=== PATIENT | male | born 1970 | race Caucasian/White ===

== ENCOUNTER 2018-08-29 16:08 | Inpatient (IN) | payer OTHER ==
[2018-08-29] MEDS ORDERED: Dexamethasone IV* 10 MG in NS 0.9% 50 ML* 50 ML IVPB ONE (16:19)
[2018-08-29] MEDS ORDERED: Albuterol/Ipratropium NEB.SOL* Albuterol 2.5 MG/Ipratropium 0.5 MG 3 ML INH ONE ×3 (16:20→17:47)
[2018-08-29] MEDS ORDERED: ED Azithromycn 500 mg/250 ml 500 MG/250 ML PREMIX.SET IVPB ONE (16:20)
[2018-08-29] MEDS ORDERED: Magnesium Sulfate IV* 0.5 GM/ML 2 ML VIAL (1 GM) IVPB ONE (16:20)
[2018-08-29] MEDS ORDERED: Dexamethasone IV* 4 MG/ML 5 ML VIAL (20 MG) ONE (16:25)
--- NOTE | 2018-08-29 16:26 | ED ---
Shortness of Breath - HPI Summary HPI Summary: A 48 y/o male brought in by [facility] ambulance presents to [facility] with a chief complaint of SOB a few hours BEER COOLER. EMS found the patient at home with an O2 Sat of 88 on 2L O2. The patient was given a nebulizer en route, he was not given steroids. He rates his pain as a 0/10 in severity. He denies a Hx of CHF. Vital signs while in room HR: 100bpm, O2 Sat:93 - History of Current Complaint Chief Complaint: EDShortnessOfBreath Hx Obtained From: Patient, EMS Onset/Duration: Sudden Onset, Lasting Hours, Still Present Timing: Constant Current Severity: Mild Dyspnea At: Rest Aggrevating Factors: Nothing Alleviating Factors: Nothing Associated Signs & Symptoms: Negative - fever - Allergy/Home Medications Allergies/Adverse Reactions: Allergies Allergy/AdvReac Type Severity Reaction Status Date / Time prochlorperazine Allergy Muscle Ache Verified 08/29/18 16:19 [From Compazine] Home Medications: Home Medications NK [No Home Medications Reported] 08/29/18 [History Confirmed 08/29/18] PMH/Surg Hx/FS Hx/Imm Hx Endocrine/Hematology History: Denies: Hx Diabetes Cardiovascular History: Denies: Hx Hypertension Sensory History: Denies: Hx Deafness - Surgical History Surgery Procedure, Year, and Place: none reported Infectious Disease History: No Infectious Disease History: Denies: Traveled Outside the [place] in Last 30 Days - Family History Known Family History: Negative: Hypertension, Diabetes - Social History Lives: With Family Alcohol Use: Rare Hx Tobacco Use: Yes Smoking Status (MU): Light Every Day Tobacco Smoker Review of Systems Negative: Fever Positive: Shortness Of Breath All Other Systems Reviewed And Are Negative: Yes Physical Exam - Summary Physical Exam Summary: GENERAL: Patient is a well-developed and nourished M who is lying comfortable in the stretcher. Patient is not in any acute respiratory distress. HEAD AND FACE: Normocephalic EYES: PERRLA, EOMI x 2. EARS: Hearing grossly intact. MOUTH: Oropharynx within normal limits. NECK: Supple, trachea is midline, no adenopathy, no JVD, no carotid bruit. CHEST: Symmetric, no tenderness at palpation LUNGS: Diffuse wheezing and rhonchi throughout CVS: Regular rate and rhythm, S1 and S2 present, no murmurs or gallops appreciated. ABDOMEN: Soft, non-tender. Bowel sounds are normal. No abdominal abnormal pulsations. EXTREMITIES: Full ROM in all major joints, no edema, no cyanosis or clubbing. NEURO: Alert and oriented x 3. No acute neurological deficits. Speech is normal and follows commands. SKIN: Dry and warm Triage Information Reviewed: Yes Vital Signs On Initial Exam: Initial Vitals Temp Pulse Resp BP Pulse Ox 99.1 F 103 30 157/81 94 08/29/18 16:16 08/29/18 16:16 08/29/18 16:16 08/29/18 16:16 08/29/18 16:16 Vital Signs Reviewed: Yes Diagnostics - Vital Signs Vital Signs Temp Pulse Resp BP Pulse Ox 08/29/18 16:16 99.1 F 103 30 157/81 94 - Laboratory Result Diagrams: 08/30/18 04:49 08/30/18 04:49 Lab Statement: Any lab studies that have been ordered have been reviewed, and results considered in the medical decision making process. - Radiology CXR Radiology Interpretation Completed By: Radiologist Summary of Radiographic Findings: No radiographic evidence for acute cardiopulmonary abnormality on this. portable chest x-ray. ED physician has reviewed this imaging report. - EKG 16:37 Cardiac Rate: Tachycardia - 103 bpm EKG Rhythm: Sinus Tachycardia Summary of EKG Findings: Sinus tachycardia at 103 bpm with [address] and ST elevation. Course/Dx - Course Course Of Treatment: A 48 y/o male brought in by [facility] ambulance presents to [facility] with a chief complaint of SOB a few hours BEER COOLER. The physical exam showed Diffuse wheezing and rhonchi throughout At 16:37 EKG shows sinus tachycardia at [address] bpm with [address]OS and ST elevation. In the ED course the patient was given Duoneb INH and Tylenol PO. CXR impression: No radiographic evidence for acute cardiopulmonary abnormality on this. portable chest x-ray. Bloodwork and chemistries obtained. The patient tested negative for influenza A and influenza B. Case discussed with hospitalist, Dr. Wick. I discussed results with patient. The patient agrees with this plan - Diagnoses Provider Diagnoses: COPD exacerbation - Physician Notifications Discussed Care of Patient With: David Wick Time Discussed With Above Provider: 18:14 Instructed by Provider To: Admit As Inpatient - Critical Care Time Critical Care Time: 30-74 min Discharge - Sign-Out/Discharge Documenting (check all that apply): Patient Departure - admit Patient Received Moderate/Deep Sedation with Procedure: No - Discharge Plan Condition: Fair Disposition: ADMITTED TO [facility] - Billing Disposition and Condition Condition: FAIR Disposition: Admitted to [facility] - Attestation Statements Document Initiated by Indira: Yes Documenting Scribe: Kaleb Lisa Provider For Whom Indira is Documenting (Include Credential): Leana Ulrich MD Scribe Attestation: IKaleb, scribed for Leana Ulrich MD on 08/30/18 at 0736. Scribe Documentation Reviewed: Yes Provider Attestation: The documentation as recorded by the Kaleb harman accurately reflects the service I personally performed and the decisions made by me, Cece Ulrich MD Status of Scribe Document: Viewed
[2018-08-29] MEDS ORDERED: Magnesium Sulfate 2 GM IV (Premix) IVPB ONE (17:00)
[2018-08-29 17:49] LABS: ABS Basophils 0 10^3/ul (0-0.2); ABS Eosinophils 0 10^3/ul (0-0.6); ABS Lymphocytes 0.7 10^3/ul (1.0-4.8); ABS Monocytes 0.6 10^3/ul (0-0.8); ABS Neutrophils 8.5 10^3/ul (1.5-7.7); ABS Nucleated RBC 0 10^3/ul; Eosinophil % 0 %; Hematocrit 43 % (36-46); Hemoglobin 13.3 g/dL (14.0-18.0); Lymphocyte % 7.4 %; Mean Corpuscular HGB Conc 31 g/dL (31-36); Mean Corpuscular Hemoglobin 28 pg (27-31); Mean Corpuscular Volume 88 fL (80-94); Mean Platelet Volume 8.1 fL (7.4-10.4); Nucleated Red Blood Cells % 0.1; Platelet Count 164 10^3/uL (150-450); Red Blood Count 4.84 10^6 /uL (4.18-5.48); Red Cell Distribution Width 17 % (10.5-15); White Blood Count 9.8 10^3/uL (3.5-10.8)
[2018-08-29 17:57] LABS: Activated Partial Thrombo Time 30.4 seconds (26.0-36.3)
[2018-08-29] MEDS ORDERED: Acetaminophen TAB* 325 MG ONE (18:00)
[2018-08-29] MEDS ORDERED: Acetaminophen TAB* 325 MG PO ONE (18:02)
[2018-08-29 18:08] LABS: Albumin 4.4 g/dL (3.2-5.2); Albumin/Globulin Ratio 1.2 (1-3); BUN/Creatinine Ratio 22.9 (8-20); Calcium 9.1 mg/dL (8.6-10.3); EGFR African American 119.2 (>60); EGFR Non-African American 98.5 (>60); Globulin 3.6 g/dL (2-4); Magnesium 2.5 mg/dL (1.9-2.7); Potassium 4.5 mmol/L (3.5-5.0); Total Bilirubin 0.3 mg/dL (0.2-1.0)
[2018-08-29 18:10] LABS: Troponin I 0.01 ng/mL (<0.04)
[2018-08-29] MEDS ORDERED: Senna TAB PO PRN (18:43)
[2018-08-29] MEDS ORDERED: Docusate CAP* 100 MG PO PRN (18:43)
[2018-08-29] MEDS ORDERED: Ondansetron INJ* 2 MG/ML VIAL IV PRN (18:43)
[2018-08-29] MEDS ORDERED: cefTRIAXone(*) 1 GM ADVAN/BAG ONE (18:58)
[2018-08-29] MEDS ORDERED: Enoxaparin(*) 40 MG/0.4 ML SYR ONE (18:58)
[2018-08-29] MEDS ORDERED: Enoxaparin(*) 40 MG/0.4 ML SYR SUBCUT SCH (19:00)
[2018-08-29] MEDS ORDERED: cefTRIAXone(*) 1 GM in NS 0.9% 50 ML* 50 ML IVPB SCH (19:00)
[2018-08-29] MEDS: Nicotine PATCH 21 MG/24 HR* PATCH TRANSDERM SCH (19:07)
[2018-08-29 19:10] LABS: Influenza A Molecular NEGATIVE (Negative); Influenza B Molecular NEGATIVE (Negative)
[2018-08-29] MEDS: Albuterol/Ipratropium NEB.SOL* Albuterol 2.5 MG/Ipratropium 0.5 MG 3 ML INH PRN (19:48)
--- NOTE | 2018-08-29 20:45 | HP ---
CC: Dr. Blake [place] * ADMISSION HISTORY AND PHYSICAL: DATE OF ADMISSION: 08/29/18 PRIMARY CARE PROVIDER: Dr. Blake in [place]. HEALTHCARE PROXY: His girlfriend, Klarissa, and his friend at bedside. CODE STATUS: Full. SOURCE OF INFORMATION: History obtained from interview with the patient, his girlfriend Klarissa, and his friend at bedside. RELIABILITY: Fair. CHIEF COMPLAINT: Shortness of breath. HISTORY OF PRESENT ILLNESS: This is a 48-year-old man with no known past medical history, except for recently diagnosed COPD approximately 1 month prior , was using 2 L of oxygen p.r.n. at home, had noticed a progressive worsening of shortness of breath over the last month with new-onset cough over the last 1- 1/2 weeks. He noticed he had been having more difficulty walking up the approximate 12 steps to his home, sometimes associated with chest pain and lightheadedness and certainly shortness of breath. Yesterday, he felt worse. He stayed home from work and ultimately was brought to the [place] [facility], where a chest x-ray was reportedly negative, received nebulizers; oxygen; magnesium and discharged with a prescription for steroids. Today, he had a fever of 102, felt weak. His girl-friend returned home, found him a little confused and more short of breath, and so brought him to the emergency room before he had taken any steroids at home. Of note, his girlfriend was sick with a flu 3 weeks prior. He was reportedly negative for the flu yesterday at [place] [facility]. He denies any headache, myalgias, or GI symptoms. He returned to the [place] [facility] today, where he was found to be in the "low 80s on nasal cannula" and transferred to [facility] via EMS. On presentation to the emergency room, he was 94% on 4 L mask, tachypneic to 30, placed on BiPAP , given steroid nebulizers with some improvement. Hospitalist was consulted for admission. PAST MEDICAL HISTORY: Includes recent diagnosis of COPD, on 3 L of home oxygen since yesterday's ER visit. No other medications for COPD. MEDICATIONS: None, except for [id number]-bjhbuqh Motrin and Tylenol. ALLERGIES: To Compazine, causes tight muscles. FAMILY HISTORY: Unknown. SOCIAL HISTORY: Smokes 1 pack per day since age 15, approximately 33 years. Occasional alcohol. 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 No illicits. REVIEW OF SYSTEMS: As per HPI including fever at home, confusion, dyspnea, chest pain with ambulation up stairs, and lightheadedness. PHYSICAL EXAMINATION GENERAL: Sitting 45 degrees in bed, sleepy, but wakes easily to name. VITAL SIGNS: Vitals when seen by this author are 129/81, heart rate 102, respiratory rate 22, 96% on 20/10, FiO2 40, T-max is 99.1. HEENT: Oropharynx is dry, but clear. Extraocular muscles are intact. Pupils are approximately 2 mm, round and reactive. NECK: No cervical or supraclavicular lymphadenopathy. LUNGS: His lungs are diffusely diminished with diffuse crackles and end- expiratory wheeze. HEART: Tachycardic heart rate, difficult to auscultate murmurs over mechanical sounds. ABDOMEN: Soft, nontender, nondistended. EXTREMITIES: Warm and well perfused. He has approximately 2-second capillary refill, although slightly sluggish. NEURO: He is alert and oriented x3. Difficult to communicate with BiPAP. DIAGNOSTIC STUDIES/LAB DATA: Labs reviewed, notable for white blood cell count of 9.8, hemoglobin 13.3, platelets 164. His ABG was notable for a pH of 2.73, bicarb of 84, pO2 of 101 on presentation 4 L. Approximately an hour later , slight improvement in pCO2 to 79 on BiPAP. BUN 19, creatinine 0.83, presenting glucose 124, lactic acid 0.9. Troponin I 0.01. BNP is 27. Data reviewed: Chest x-ray, no active cardiopulmonary disease noted. EKG. Sinus tachycardia, ventricular rate of 130, normal axis. No ST- or T- wave changes. No Qs. ASSESSMENT AND PLAN: This 48-year-old man, active tobacco use, suspected history of chronic obstructive pulmonary disease, 1-month history of worsening difficulty breathing, punctuated by worsening over the last 1-1/2 weeks and then today and then worse yesterday evening, presenting to [place] ED and then worse today with respiratory failure requiring BiPAP. 1. Kyoli-gq-facnzpl respiratory failure. Suspect chronic obstructive pulmonary disease exacerbation, most likely viral in etiology; however, did note fever at home to 102. Received azithromycin in the emergency room. We will add on ceftriaxone. Received Decadron in the emergency room. We will continue methylprednisolone 40 mg every 8 hours. I do not identify a sepsis at this point. No source of infection. No fevers here and no elevated white blood cell count. We will not bolus the patient. Maintain BiPAP. Repeat ABG in 2 hours from now. DuoNebs and start Dulera, which I cautioned he will have to leave with. He did have close contact with girlfriend with influenza. Repeat influenza now even though reportedly negative at [place]. Admit to the ICU for close observation. 2. Chest pain at home, sounds like stable angina walking up stairs, although may have been associated with hypoxia in the setting of chronic respiratory failure not yet on oxygen. Ordered transthoracic echocardiogram. Check aspirin. Currently, chest pain free and was not a symptom of his presenting symptoms. Check lipids in the morning, add on hemoglobin A1c. Monitor on telemetry. 3. Active tobacco use, add high-dose nicotine patch. 4. DVT prophylaxis, enoxaparin. TIME SPENT: Greater than 45 minutes was spent in the admission of this patient , approximately 60 minutes of critical care time devoted to his admission, with greater than half was spent [id number]-[id number] with the patient and his family. [id number]/[facility] #: [id number] OTTO
--- NOTE | 2018-08-29 21:49 | PN ---
Progress Note - Progress Note Date of Service: 08/29/18 Note: F/U ABG - remains respiratory acidosis. Slight improvement in pH. On exam: awakes easily to voice. States his breathing is better. Is awake and alert. On max BiPAP settings. Notice a leak in mask. Readjusted. Will repeat ABG in a few hours. Appears clinically improving.
[2018-08-29] MEDS: Mometasone/Formoter 200/5 MDI INH SCH (23:03)
[2018-08-29] MEDS: methylPREDNISolone SOD 40 MG* 1 ML VIAL IV SCH (23:50)
[2018-08-30] MEDS: NS 0.9% 1000 ML** 1,000 ML IV SCH ×2 (04:50→15:51)
[2018-08-30 05:00] LABS: ABS Basophils 0 10^3/ul (0-0.2); ABS Eosinophils 0 10^3/ul (0-0.6); ABS Lymphocytes 0.5 10^3/ul (1.0-4.8); ABS Monocytes 0.2 10^3/ul (0-0.8); ABS Neutrophils 8.6 10^3/ul (1.5-7.7); ABS Nucleated RBC 0 10^3/ul; Eosinophil % 0 %; Hematocrit 37 % (36-46); Hemoglobin 11.8 g/dL (14.0-18.0); Mean Corpuscular HGB Conc 32 g/dL (31-36); Mean Corpuscular Hemoglobin 28 pg (27-31); Mean Corpuscular Volume 86 fL (80-94); Mean Platelet Volume 7.9 fL (7.4-10.4); Nucleated Red Blood Cells % 0.1; Platelet Count 148 10^3/uL (150-450); Red Blood Count 4.31 10^6 /uL (4.18-5.48); Red Cell Distribution Width 17 % (10.5-15); White Blood Count 9.3 10^3/uL (3.5-10.8)
[2018-08-30 05:15] LABS: BUN/Creatinine Ratio 27.9 (8-20); Calcium 8.4 mg/dL (8.6-10.3); EGFR Non-African American 123.9 (>60); HDL Cholesterol 48.2 mg/dL; Magnesium 2.2 mg/dL (1.9-2.7); Potassium 4.9 mmol/L (3.5-5.0)
[2018-08-30] MEDS: Mometasone/Formoter 200/5 MDI INH SCH ×2 (07:51→19:14)
[2018-08-30] MEDS: Albuterol/Ipratropium NEB.SOL* Albuterol 2.5 MG/Ipratropium 0.5 MG 3 ML INH PRN (07:52)
[2018-08-30] MEDS: methylPREDNISolone SOD 40 MG* 1 ML VIAL IV SCH ×2 (08:09→16:18)
[2018-08-30] MEDS: Nicotine PATCH 21 MG/24 HR* PATCH TRANSDERM SCH (08:10)
[2018-08-30] MEDS: Aspirin 81 mg CHEW TAB* 81 MG TAB.CHEW PO SCH (08:10)
[2018-08-30] MEDS: Acetaminophen TAB* 325 MG PO PRN (08:10)
[2018-08-30] MEDS ORDERED: Morphine 4 MG/ML VIAL (1 ml) 4 MG/ML VIAL IV ONE (08:45)
[2018-08-30] MEDS: Albuterol/Ipratropium NEB.SOL* Albuterol 2.5 MG/Ipratropium 0.5 MG 3 ML INH SCH ×4 (10:05→23:04)
[2018-08-30] MEDS: Azithromycin IV(*) 250 MG in NS 0.9% 250 ML* 250 ML IVPB SCH (12:54)
--- NOTE | 2018-08-30 13:05 | CONS ---
PULMONARY CONSULTATION REPORT: DATE OF CONSULT: 08/30/18 CONSULTATION REQUESTED BY: Dr. David Wick. REASON FOR CONSULTATION: Evaluation of COPD exacerbation. HISTORY OF PRESENT ILLNESS: The patient is a 48-year-old obese male; smoker with significant smoking history; history of COPD, on 3 L home O2, recently started for hypoxemia during ER visit. The patient has not been following with primary care provider or has not seen a sales and service agent in the past. The patient presents for evaluation of worsening shortness of breath, gradually worsening over the past 1 month. He has been using O2 at home with no significant improvement in his symptoms. He has been in the ER a few times at [place]. Comes in for significant shortness of breath and productive cough. Also having significant chest pain and tightness with minimal exertion. He was seen in the [place] [facility] and was transferred to [facility] for further management. The patient on arrival was febrile, fever of 102. He was also found to be little confused at home by his girlfriend. The patient was given steroids, nebulizers, and was placed on BiPAP and admitted to ICU for close monitoring of acute COPD exacerbation. The patient with hypercapnic respiratory failure with slight improvement on BiPAP. The patient reported more anxiety and shortness of breath this morning. He was given morphine with symptomatic benefit. He has not been coughing much since he has been here. Work of breathing improved after BiPAP towards midday today. He has had very low-grade fevers. No significant issues otherwise. His blood pressure has been normal and he has otherwise been hemodynamically stable. PAST MEDICAL HISTORY: COPD, on home O2. MEDICATIONS: Vkto-aqc-efizzli Motrin and Tylenol for pain. ALLERGIES: COMPAZINE, which causes chest tightness. FAMILY HISTORY: Noncontributory. SOCIAL HISTORY: Smokes 1 pack per day since age 15. Occasional alcohol intake. 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 No illicit drug abuse. REVIEW OF SYSTEMS: All 14 systems reviewed and as per HPI. Denies recent travel or known sick contacts. Denies headaches. Reports anxiety. Denies chest pain or tightness at this time. Has been having fevers. Denies rash, urinary complaints or abdominal issues. PHYSICAL EXAM: The patient is slightly tachypneic, using accessory muscles of respiration, able to talk full sentence even on BiPAP. Vital Signs: Temperature 97.9, pulse 88 beats per minute, respiratory rate 23 per minute, O2 sat 97% on 40% FiO2 on BiPAP, and blood pressure 137/85. HEENT: Pupils equal and reactive to light. Mucous membranes are moist. Lungs: Diminished air entry bilaterally. Significant wheeze on auscultation. Cardiovascular: S1, S2 present, regular. Abdomen: Soft, nontender, and nondistended. Bowel sounds present. Extremities: Normal range of motion. Skin: No rash or bruise. Neuro : Alert, awake, oriented x3. No focal deficits. DIAGNOSTIC STUDIES/LAB DATA: WBC count 9.3, hemoglobin 11.8, hematocrit 37, platelet count of 148. Blood gas on arrival showed significant respiratory acidosis with pCO2 of 84. Blood gas from this morning showed improvement with pH of 7.31, pCO2 of 69, pO2 of 102 while on 40% FiO2 with bicarb of 29. Sodium 135, potassium 4.9, chloride 99, bicarb 35, BUN 19, and creatinine 0.68. Influenza A and B negative. Chest x-ray on admission was personally reviewed by me - evidence of hyperinflation with no suggestion of airspace opacities. IMPRESSION AND RECOMMENDATIONS: 48-year-old male with significant smoking history with ongoing shortness of breath issues in the past month, also with fevers and confusion prior to admission. 1. Acute on chronic obstructive pulmonary disease exacerbation. 2. Hypoxemic and hypercapnic respiratory failure. 3. Anxiety. 4. Anemia. The patient requiring BiPAP since admission. He is slowly improving. At this time, will continue with BiPAP as tolerated. The patient's respiratory acidosis is slowly improving. He is still significantly tachypneic on auscultation. He is getting nebs q.4 hours standing doses. He is also started on Rocephin and Zithromax for possible bronchitis. He is on Solu-Medrol 40 q.8 hours. Will continue that until we see clinical improvement. He was also started on long- acting bronchodilators. He was started on nicotine patch. Smoking cessation education and counseling was performed at bedside. He has tenuous respiratory status. If he appears to be not improving or patient appears to be tired out, will then consider intubation. This was discussed in detail with the patient and he is agreeable to intubation if needed. Thank you for allowing me to participate in the care of your patient. Will follow up with you. Discussed with Dr. David Wick. [id number]/[facility] #: [id number] OTTO
--- NOTE | 2018-08-30 14:51 | PN ---
Subjective Date of Service: 08/30/18 Interval History: Awake, feels breathing is improved but did not tolerate coming off of bipap ABG minimally improved since last Objective Active Medications: Acetaminophen (Tylenol Tab*) 650 mg PO Q4H PRN PRN Reason: FEVER/PAIN Last Admin: 08/30/18 08:10 Dose: 650 mg Albuterol/Ipratropium (Duoneb (Albuterol 2.5 Mg/Ipratropium 0.5 Mg)) 1 neb INH [id number] AWAKE [facility] Last Admin: 08/30/18 10:05 Dose: 1 neb Aspirin (Aspirin 81 Mg Chew Tab*) 81 mg PO DAILY [facility] Last Admin: 08/30/18 08:10 Dose: 81 mg Docusate Sodium (Colace Cap*) 100 mg PO BID PRN PRN Reason: CONSTIPATION Enoxaparin Sodium (Lovenox(*)) 40 mg SUBCUT Q24HR@1830 [facility] Azithromycin 250 mg/ Sodium (Chloride) 250 mls @ 250 mls/hr IVPB Q24H [facility] Stop: 09/02/18 12:59 Last Admin: 08/30/18 12:54 Dose: 250 mls/hr Ceftriaxone Sodium 1 gm/ (Sodium Chloride) 50 mls @ 200 mls/hr IVPB Q24HR@1830 [facility] Sodium Chloride (Ns 0.9% 1000 Ml) 1,000 mls @ 100 mls/hr IV PER RATE [facility] Stop: 09/01/18 13:59 Last Admin: 08/30/18 04:50 Dose: 100 mls/hr Influenza Virus Vaccine (Fluarix *Quad* *) 0.5 ml IM .ONCE ONE Stop: 09/01/18 09:01 Methylprednisolone Sodium Succinate (Solu-Medrol 40 Mg) 40 mg IV Q8H [facility] Last Admin: 08/30/18 08:09 Dose: 40 mg Mometasone Furoate/Formoterol Fumar (Dulera 200/5 Mdi*) 2 puff INH BID [facility] Last Admin: 08/30/18 07:51 Dose: 2 puff Nicotine (Nicotine Patch 21 Mg/24 Hr*) 1 patch TRANSDERM DAILY [facility] Last Admin: 08/30/18 08:10 Dose: 1 patch Ondansetron HCl (Zofran Inj*) 4 mg IV Q4H PRN PRN Reason: NAUSEA/VOMITING Pharmacy Profile Note (Nicotine Patch Removal Note*) 1 note FOLLOW UP 2100 ZAIDA Pneumococcal Polyvalent Vaccine (Pneumococcal Vac 23-Polyvalent*) 0.5 ml IM .ONCE ONE Stop: 09/01/18 09:01 Senna (Senokot Tab*) 1 tab PO BID PRN PRN Reason: CONSTIPATION Vital Signs - 8 hr 08/30/18 08/30/18 08/30/18 07:00 07:52 08:00 Temperature Pulse Rate 92 88 87 Respiratory 20 29 23 Rate Blood Pressure 133/79 (mmHg) O2 Sat by Pulse 96 95 99 Oximetry 08/30/18 08/30/18 08/30/18 08:01 08:28 09:00 Temperature 97.9 F Pulse Rate 92 88 Respiratory 24 3 Rate Blood Pressure 140/84 137/82 (mmHg) O2 Sat by Pulse 98 94 Oximetry 08/30/18 08/30/18 08/30/18 09:11 10:00 10:01 Temperature Pulse Rate 89 88 Respiratory 30 23 23 Rate Blood Pressure 137/85 (mmHg) O2 Sat by Pulse 97 97 Oximetry 08/30/18 08/30/18 08/30/18 11:00 12:00 13:00 Temperature 98.7 F Pulse Rate 83 87 110 Respiratory 26 24 25 Rate Blood Pressure 137/85 129/81 154/80 (mmHg) O2 Sat by Pulse 98 98 95 Oximetry 08/30/18 14:00 Temperature Pulse Rate 115 Respiratory 30 Rate Blood Pressure 160/93 (mmHg) O2 Sat by Pulse 96 Oximetry Oxygen Devices in Use Now: BiPAP - 20/10 [id number] Appearance: sitting up ,NAD Eyes: No Scleral Icterus, PERRLA Ears/Nose/Mouth/Throat: NL Teeth, Lips, Gums, Clear Oropharnyx Neck: NL Appearance and Movements; NL JVP, Trachea Midline Respiratory: Symmetrical Chest Expansion and Respiratory Effort, - - decreased air entry throughout, expiratory wheezes and rhonchi Cardiovascular: RRR Abdominal: NL Sounds; No Tenderness; No Distention, No Hepatosplenomegaly Lymphatic: No Cervical Adenopathy Extremities: No Edema Skin: No Rash or Ulcers Neurological: Alert and Oriented x 3 Result Diagrams: 08/30/18 04:49 08/30/18 04:49 Microbiology and Other Data: Microbiology 08/29/18 17:41 Aerobic Blood Culture - Final Blood Venous Bacillus Sp (Non-Anthracis) 08/29/18 19:51 Nasal Screen MRSA (PCR) - Final Nasal Mrsa Not Detected 08/29/18 18:43 Influenza Types A,B Antigen - Final Nasal Specimen received for Influenza A/B Molecular testing Assess/Plan/Problems-Billing Assessment: 48 yo M no known Pmhx except recently diagnosed COPD at [facility] pw respiratory failure - Patient Problems (1) Acute respiratory failure with hypoxia Comment: Acute on chronic - pt was on 3L home O2 for the month prior to presentation c/w IV steroids, dulera, duonebs standing BiPAP with breaks if tolerated Repeat ABG 1700 Appreciate pulm consult Had fever at home - c/w CTX and azithromycin although CXR without compelling PNA (2) Tobacco abuse Comment: nicotine patch (3) DVT prophylaxis Comment: lovenox
[2018-08-30] MEDS: cefTRIAXone(*) 1 GM in NS 0.9% 50 ML* 50 ML IVPB SCH (18:40)
[2018-08-30] MEDS: Enoxaparin(*) 40 MG/0.4 ML SYR SUBCUT SCH (18:46)
[2018-08-30] MEDS: Nicotine Patch Removal NOTE FOLLOW UP SCH (21:34)
[2018-08-31] MEDS: methylPREDNISolone SOD 40 MG* 1 ML VIAL IV SCH ×3 (00:06→18:09)
[2018-08-31] MEDS: NS 0.9% 1000 ML** 1,000 ML IV SCH (02:12)
[2018-08-31] MEDS: Albuterol/Ipratropium NEB.SOL* Albuterol 2.5 MG/Ipratropium 0.5 MG 3 ML INH SCH ×7 (03:10→23:55)
[2018-08-31] MEDS: Acetaminophen TAB* 325 MG PO PRN ×2 (04:14→12:26)
[2018-08-31] MEDS: Melatonin 3 MG TAB PO SCH ×2 (04:42→20:51)
[2018-08-31] MEDS: Mometasone/Formoter 200/5 MDI INH SCH ×3 (07:41→20:20)
[2018-08-31] MEDS: Aspirin 81 mg CHEW TAB* 81 MG TAB.CHEW PO SCH (09:11)
[2018-08-31] MEDS: Nicotine PATCH 21 MG/24 HR* PATCH TRANSDERM SCH (09:12)
--- NOTE | 2018-08-31 09:54 | PN ---
Progress Note - Progress Note Date of Service: 08/31/18 - Pulm f/u note Note: Pt seen and examined at bedside. Pt reports feeling better. Tolerated BiPAP for few hours and was transitioned to high flow. Having cough with thick secretions , able to expectorate. Active Medications Generic Name Dose Route Start Last Admin Trade Name Freq PRN Reason Stop Dose Admin Acetaminophen 650 mg 08/29/18 18:43 08/31/18 04:14 Tylenol Tab* PO 650 mg Q4H PRN Administration FEVER/PAIN Albuterol/Ipratropium 1 neb 08/30/18 11:00 08/31/18 07:41 Duoneb (Albuterol 2.5 Mg/Ipratropium 0.5 Mg) INH Not Given [id number] AWAKE ZAIDA Aspirin 81 mg 08/30/18 09:00 08/31/18 09:11 Aspirin 81 Mg Chew Tab* PO 81 mg DAILY ZAIDA Administration Docusate Sodium 100 mg 08/29/18 18:43 Colace Cap* PO BID PRN CONSTIPATION Enoxaparin Sodium 40 mg 08/30/18 18:30 08/30/18 18:46 Lovenox(*) SUBCUT 40 mg Q24HR@1830 ZAIDA Administration Guaifenesin 600 mg 08/31/18 10:00 Mucinex* PO BID ZAIDA Azithromycin 250 mg/ Sodium 250 mls @ 250 mls/hr 08/30/18 12:00 08/30/18 12: 54 Chloride IVPB 09/02/18 12:59 250 mls/hr Q24H ZAIDA Administration Ceftriaxone Sodium 1 gm/ 50 mls @ 200 mls/hr 08/30/18 18:30 08/30/18 18:40 Sodium Chloride IVPB 200 mls/hr Q24HR@1830 [facility]AIDA Administration Sodium Chloride 1,000 mls @ 100 mls/hr 08/30/18 04:00 08/31/18 02:12 Ns 0.9% 1000 Ml IV 09/01/18 13:59 100 mls/hr PER RATE ZAIDA Administration Influenza Virus Vaccine 0.5 ml 09/01/18 09:00 Fluarix *Quad* 2017-* IM 09/01/18 09:01 .ONCE ONE Melatonin 3 mg 08/31/18 05:00 08/31/18 04:42 Melatonin PO 3 mg QPM ZAIDA Administration Methylprednisolone Sodium Succinate 40 mg 08/30/18 00:00 08/31/18 09:11 Solu-Medrol 40 Mg IV 40 mg Q8H ZAIDA Administration Mometasone Furoate/Formoterol Fumar 2 puff 08/29/18 21:00 08/31/18 07:41 Dulera 200/5 Mdi* INH Not Given BID ZAIDA Nicotine 1 patch 08/29/18 19:00 08/31/18 09:12 Nicotine Patch 21 Mg/24 Hr* TRANSDERM 1 patch DAILY [facility] Administration Ondansetron HCl 4 mg 08/29/18 18:43 Zofran Inj* IV Q4H PRN NAUSEA/VOMITING Pharmacy Profile Note 1 note 08/30/18 21:00 08/30/18 21:34 Nicotine Patch Removal Note* FOLLOW UP 1 note 2100 [facility] Administration Pneumococcal Polyvalent Vaccine 0.5 ml 09/01/18 09:00 Pneumococcal Vac 23-Polyvalent* IM 09/01/18 09:01 .ONCE ONE Senna 1 tab 08/29/18 18:43 Senokot Tab* PO BID PRN CONSTIPATION Vital Signs Temp Pulse Resp BP Pulse Ox 98.2 F 85 22 158/82 97 08/31/18 03:48 08/31/18 06:01 08/31/18 06:01 08/31/18 06:01 08/31/18 06:01 O/E: Pt in NAD HEENT: PERRLA, MP-4, no JVD, edentulous Lungs: Diminished air entry b/l, wheeze+ CVS: S1, S2+ Abd: Obese, BS+ Ext: Normal ROM Skin: No rash Neuro: No focal deficits Laboratory Results - last 24 hr 08/30/18 08/30/18 10:00 17:35 Patient Temperature Not Reportable Not Reportable ABG pH 7.31 L 7.36 ABG pH (Temp Correct) Not Reportable Not Reportable ABG pCO2 69 H 64 H ABG pCO2 (Temp Corrct Not Reportable Not Reportable ABG pO2 102 H 110 H ABG pO2 (Temp Correct Not Reportable Not Reportable ABG HCO3 29.6 31.5 H ABG O2 Saturation 98.7 H 100.0 H ABG Base Excess 6.0 H 8.4 H Respiration Rate 18 18 Ventilator Type Not Reportable Not Reportable Vent Mode Not Reportable Not Reportable FiO2 40 40 Inspiratory Time Not Reportable Not Reportable PEEP Not Reportable Not Reportable Pressure Support Not Reportable Not Reportable Pressure Control Not Reportable Not Reportable EPAP 10 Not Reportable IPAP 20 10 BiPAP Not Reportable 20 I/R: 48 y o obese m, smoker admitted with worsening SOB, found to be having acute COPD exacerbation sec to viral bronchitis Pt with acute on chronic hypercapnic and hypoxic resp failure, required BiPAP Pt improving clinically Will titrate FiO2 as tolerated Having copious secretions, will order flutter device, mucinex He is able to expectorate without any issues Septic w/u negative to date other than oral colonizers Will c/w solumedrol 40 q 8 hrs for now c/w bronchodilators Pt agreeable to quitting smoking. Nicotine patch helping On abx for bronchitis, no PNA on CXR Remains afebrile COPD education provided Would need to be d/amarjit on BiPAP Body habitus also concerning for sleep apnea Will need PFTs as out pt Will f/u in pulm clinic at [facility] D/w Dr Wick and bedside RN
--- NOTE | 2018-08-31 10:57 | ECHO ---
Patient: ANUP MUSTAFA [facility] Rec#: [id number] : 1970 Date: 08/31/2018 Age: 48y Height: 168 cm / 66.1 in Weight: 104 kg / 229.2 lbs Sex: M BSA: 2.12 Room#: [facility] Admit Date#: 08/29/2018 Type: Inpatient Referring: David Wick MD Reading: Erick Blake MD Train Attendant: Zina Mcgill RDCS CC: Maral Blake MD Transthoracic Echocardiogram Indication: Chest pain, dyspnea BP: 158/82 HR: 78 Rhythm: NSR with PVCs Findings History: COPD, smoker. Technical Comments: The study quality is fair. Completed at 0800. Left Ventricle: The left ventricular chamber size is normal. Mild concentric left ventricular hypertrophy is observed. Global left ventricular wall motion and contractility are within normal limits. There is normal left ventricular systolic function. The estimated ejection fraction is 55-60%. Normal left ventricular diastolic filling is observed. Left Atrium: The left atrium is mildly dilated. Right Ventricle: Moderator Band present. The right ventricle is mildly dilated. The right ventricle wall thickness is mildly increased. The right ventricular global systolic function is normal. Right Atrium: The right atrium is mildly dilated. Aortic Valve: The aortic valve structure is not well visualized. The aortic valve leaflets are mildly thickened. There is no evidence of aortic regurgitation. There is no evidence of aortic stenosis. Mitral Valve: The mitral valve leaflets are mildly thickened. There is a trace of mitral regurgitation. Tricuspid Valve: The tricuspid valve leaflets are normal. There is trace tricuspid regurgitation. Unable to estimate the right ventricular systolic pressure. Pulmonic Valve: The pulmonic valve structure is not well visualized. There is a trace pulmonic regurgitation. There is no pulmonic stenosis. Pericardium: There is no significant pericardial effusion. A pericardial fat pad is visualized. Aorta: There is mild dilatation of the ascending aorta. There is no dilatation of the aortic arch. There is mild dilatation of the aortic root. Pulmonary Artery: The main pulmonary artery is not well visualized. Venous: The inferior vena cava appears normal in size. There is a greater than 50% respiratory change in the inferior vena cava dimension. Conclusions There is normal left ventricular systolic function. The estimated ejection fraction is 55-60%. Global left ventricular wall motion and contractility are within normal limits. The left ventricular chamber size is normal. Mild concentric left ventricular hypertrophy is observed. The left atrium is mildly dilated. The right atrium is mildly dilated. The right ventricle is mildly dilated. The right ventricle wall thickness is mildly increased. The right ventricular global systolic function is normal. Functionally benign heart valves. There is mild dilatation of the ascending aorta. There is mild dilatation of the aortic root. There is no prior echocardiogram available to compare with at this time. Measurements Name Value Normal Range RVIDd (AP) 2D 3.5 cm (0.9 - 2.6) RVDdMajor (2D) 4.6 cm (2.2 - 4.4) RVAW (2D) 0.7 cm (0.2 - 0.5) RAd ISD 4CH 5.1 cm (3.4 - 4.9) RA (A4C)W 4.6 cm (2.9 - 4.6) IVSd (2D) 1.1 cm (0.6 - 1) LVPWd (2D) 1.1 cm (0.6 - 1) LVIDd (2D) 5.1 cm (3.6 - 5.4) LVIDs (2D) 3.3 cm - LV FS (2D) 35 % (25 - 45) Aortic Annulus 1.9 cm (1.4 - 2.6) Ao root diameter (2D) 3.6 cm (2.1 - 3.5) Ascending Ao 3.7 cm (2.1 - 3.4) Aortic arch 2 cm (1.8 - 3.4) LA dimension (AP) 2D 4.2 cm (2.3 - 3.8) LAd ISD 4CH 4.8 cm (2.9 - 5.3) LA ISD 4CH W 5.1 cm (2.5 - 4.5) Name Value Normal Range LA ESV BP (A/L) index 33 ml/m2 - Name Value Normal Range MV E-wave Vmax 1 m/sec - MV deceleration time 165 msec - MV A-wave Vmax 0.6 m/sec - MV E:A ratio 1.6 ratio - LV septal e' Vmax 0.11 m/sec - LV lateral e' Vmax 0.15 m/sec - LV E:e' septal ratio 9.1 ratio - LV E:e' lateral ratio 6.7 ratio - Name Value Normal Range AV Vmax 1.6 m/sec - AV VTI 30 cm - AV peak gradient 10 mmHg - AV mean gradient 5 mmHg - LVOT diameter 2 cm - LVOT Vmax 1 m/sec - LVOT VTI 21 cm - LVOT peak gradient 4 mmHg - LVOT mean gradient 2 mmHg - CARLINE Vmax 0.7 m/sec - Name Value Normal Range IVC diameter 2.1 cm - Name Value Normal Range PV Vmax 1.2 m/sec - PV peak gradient 6 mmHg -
[2018-08-31] MEDS: Azithromycin IV(*) 250 MG in NS 0.9% 250 ML* 250 ML IVPB SCH (12:26)
[2018-08-31] MEDS: guaiFENesin ER TAB 600 MG PO SCH ×2 (12:31→20:51)
--- NOTE | 2018-08-31 16:16 | PN ---
Subjective Date of Service: 08/31/18 Interval History: Tolerated vapotherm overnight but needed bipap rescue. Tolerated 5L NC today as well. Much improved. Producing large amounts of sputum. Adamant that he wants to quit smoking prior to me broaching topic Objective Active Medications: Acetaminophen (Tylenol Tab*) 650 mg PO Q4H PRN PRN Reason: FEVER/PAIN Last Admin: 08/31/18 12:26 Dose: 650 mg Albuterol/Ipratropium (Duoneb (Albuterol 2.5 Mg/Ipratropium 0.5 Mg)) 1 neb INH [id number] AWAKE [facility] Last Admin: 08/31/18 15:15 Dose: 1 neb Aspirin (Aspirin 81 Mg Chew Tab*) 81 mg PO DAILY [facility] Last Admin: 08/31/18 09:11 Dose: 81 mg Docusate Sodium (Colace Cap*) 100 mg PO BID PRN PRN Reason: CONSTIPATION Enoxaparin Sodium (Lovenox(*)) 40 mg SUBCUT Q24HR@1830 [facility] Last Admin: 08/30/18 18:46 Dose: 40 mg Guaifenesin (Mucinex*) 600 mg PO BID [facility] Last Admin: 08/31/18 12:31 Dose: 600 mg Azithromycin 250 mg/ Sodium (Chloride) 250 mls @ 250 mls/hr IVPB Q24H [facility] Stop: 09/02/18 12:59 Last Admin: 08/31/18 12:26 Dose: 250 mls/hr Ceftriaxone Sodium 1 gm/ (Sodium Chloride) 50 mls @ 200 mls/hr IVPB Q24HR@1830 [facility] Last Admin: 08/30/18 18:40 Dose: 200 mls/hr Sodium Chloride (Ns 0.9% 1000 Ml) 1,000 mls @ 100 mls/hr IV PER RATE [facility] Stop: 09/01/18 13:59 Last Admin: 08/31/18 02:12 Dose: 100 mls/hr Influenza Virus Vaccine (Fluarix *Quad* 2017-*) 0.5 ml IM .ONCE ONE Stop: 09/01/18 09:01 Melatonin (Melatonin) 3 mg PO QPM [facility] Last Admin: 08/31/18 04:42 Dose: 3 mg Methylprednisolone Sodium Succinate (Solu-Medrol 40 Mg) 40 mg IV Q8H [facility] Last Admin: 08/31/18 09:11 Dose: 40 mg Mometasone Furoate/Formoterol Fumar (Dulera 200/5 Mdi*) 2 puff INH BID [facility] Last Admin: 08/31/18 12:24 Dose: 2 puff Nicotine (Nicotine Patch 21 Mg/24 Hr*) 1 patch TRANSDERM DAILY [facility] Last Admin: 08/31/18 09:12 Dose: 1 patch Ondansetron HCl (Zofran Inj*) 4 mg IV Q4H PRN PRN Reason: NAUSEA/VOMITING Pharmacy Profile Note (Nicotine Patch Removal Note*) 1 note FOLLOW UP 2100 [facility] Last Admin: 08/30/18 21:34 Dose: 1 note Pneumococcal Polyvalent Vaccine (Pneumococcal Vac 23-Polyvalent*) 0.5 ml IM .ONCE ONE Stop: 09/01/18 09:01 Senna (Senokot Tab*) 1 tab PO BID PRN PRN Reason: CONSTIPATION Varenicline (Chantix (Nf)) 0.5 mg PO DAILY [facility]; Protocol Stop: 09/03/18 09:01 Vital Signs - 8 hr 08/31/18 08/31/18 15:16 15:23 Pulse Rate 98 100 Respiratory 24 95 Rate O2 Sat by Pulse 99 26 Oximetry Oxygen Devices in Use Now: Nasal Cannula Appearance: NAD Eyes: No Scleral Icterus, PERRLA Ears/Nose/Mouth/Throat: NL Teeth, Lips, Gums Neck: NL Appearance and Movements; NL JVP, Trachea Midline Respiratory: Symmetrical Chest Expansion and Respiratory Effort, - - poor air movement but much improved since admission, +wheeze Cardiovascular: RRR Abdominal: NL Sounds; No Tenderness; No Distention, No Hepatosplenomegaly Lymphatic: No Cervical Adenopathy Skin: No Rash or Ulcers Neurological: Alert and Oriented x 3 Result Diagrams: 08/30/18 04:49 08/30/18 04:49 Microbiology and Other Data: Microbiology 08/29/18 17:41 Aerobic Blood Culture - Final Blood Venous Bacillus Sp (Non-Anthracis) 08/29/18 19:51 Nasal Screen MRSA (PCR) - Final Nasal Mrsa Not Detected 08/29/18 18:43 Influenza Types A,B Antigen - Final Nasal Specimen received for Influenza A/B Molecular testing Assess/Plan/Problems-Billing Assessment: 48 yo M no known Pmhx except recently diagnosed COPD at [place] [facility] pw respiratory failure - Patient Problems (1) Acute respiratory failure with hypoxia Comment: Acute on chronic - pt was on 3L home O2 for the month prior to presentation c/w IV steroids, dulera, duonebs standing BiPAP with breaks if tolerated - Will need BiPAP at home (this has not yet been arranged) Flutter valve Appreciate pulm consult Had fever at home - c/w CTX and azithromycin although CXR without compelling PNA (2) Tobacco abuse Comment: nicotine patch Interested in chantix Starting chantix 0.5mg daily x 3 days Needs escalated dose on day 4 to BID (3) DVT prophylaxis Comment: lovenox
[2018-08-31] MEDS: cefTRIAXone(*) 1 GM in NS 0.9% 50 ML* 50 ML IVPB SCH (18:09)
[2018-08-31] MEDS: Enoxaparin(*) 40 MG/0.4 ML SYR SUBCUT SCH (20:52)
[2018-08-31] MEDS: Nicotine Patch Removal NOTE FOLLOW UP SCH (20:53)
[2018-09-01] MEDS: methylPREDNISolone SOD 40 MG* 1 ML VIAL IV SCH ×4 (02:14→23:06)
[2018-09-01] MEDS: Acetaminophen TAB* 325 MG PO PRN ×3 (02:14→09:00)
[2018-09-01] MEDS: Albuterol/Ipratropium NEB.SOL* Albuterol 2.5 MG/Ipratropium 0.5 MG 3 ML INH SCH ×6 (03:30→23:12)
[2018-09-01] MEDS: Mometasone/Formoter 200/5 MDI INH SCH ×2 (07:53→19:57)
--- NOTE | 2018-09-01 08:43 | PN ---
Subjective Date of Service: 09/01/18 Interval History: Pt feels well. C/o daily headaches. Uses plenty of coffee at home , but has not drunk any at [facility]. wheezing still there, but SOB improving Objective Active Medications: Acetaminophen (Tylenol Tab*) 650 mg PO Q4H PRN PRN Reason: FEVER/PAIN Last Admin: 09/01/18 06:18 Dose: 650 mg Albuterol/Ipratropium (Duoneb (Albuterol 2.5 Mg/Ipratropium 0.5 Mg)) 1 neb INH [id number] AWAKE [facility] Last Admin: 09/01/18 07:50 Dose: 1 neb Aspirin (Aspirin 81 Mg Chew Tab*) 81 mg PO DAILY [facility] Last Admin: 08/31/18 09:11 Dose: 81 mg Docusate Sodium (Colace Cap*) 100 mg PO BID PRN PRN Reason: CONSTIPATION Enoxaparin Sodium (Lovenox(*)) 40 mg SUBCUT Q24HR@1830 [facility] Last Admin: 08/31/18 20:52 Dose: 40 mg Guaifenesin (Mucinex*) 600 mg PO BID [facility] Last Admin: 08/31/18 20:51 Dose: 600 mg Azithromycin 250 mg/ Sodium (Chloride) 250 mls @ 250 mls/hr IVPB Q24H [facility] Stop: 09/02/18 12:59 Last Admin: 08/31/18 12:26 Dose: 250 mls/hr Ceftriaxone Sodium 1 gm/ (Sodium Chloride) 50 mls @ 200 mls/hr IVPB Q24HR@1830 [facility] Last Admin: 08/31/18 18:09 Dose: 200 mls/hr Sodium Chloride (Ns 0.9% 1000 Ml) 1,000 mls @ 100 mls/hr IV PER RATE [facility] Stop: 09/01/18 13:59 Last Admin: 08/31/18 02:12 Dose: 100 mls/hr Influenza Virus Vaccine (Fluarix *Quad* 2017-*) 0.5 ml IM .ONCE ONE Stop: 09/01/18 09:01 Melatonin (Melatonin) 3 mg PO QPM [facility] Last Admin: 08/31/18 20:51 Dose: 3 mg Methylprednisolone Sodium Succinate (Solu-Medrol 40 Mg) 40 mg IV Q8H [facility] Last Admin: 09/01/18 02:14 Dose: 40 mg Mometasone Furoate/Formoterol Fumar (Dulera 200/5 Mdi*) 2 puff INH BID [facility] Last Admin: 09/01/18 07:53 Dose: 2 puff Nicotine (Nicotine Patch 21 Mg/24 Hr*) 1 patch TRANSDERM DAILY [facility] Last Admin: 08/31/18 09:12 Dose: 1 patch Ondansetron HCl (Zofran Inj*) 4 mg IV Q4H PRN PRN Reason: NAUSEA/VOMITING Pharmacy Profile Note (Nicotine Patch Removal Note*) 1 note FOLLOW UP 2100 [facility] Last Admin: 08/31/18 20:53 Dose: 1 note Pneumococcal Polyvalent Vaccine (Pneumococcal Vac 23-Polyvalent*) 0.5 ml IM .ONCE ONE Stop: 09/01/18 09:01 Senna (Senokot Tab*) 1 tab PO BID PRN PRN Reason: CONSTIPATION Varenicline (Chantix (Nf)) 0.5 mg PO DAILY [facility]; Protocol Stop: 09/03/18 09:01 Vital Signs - 8 hr 09/01/18 09/01/18 09/01/18 01:00 02:00 02:01 Temperature Pulse Rate 85 102 101 Respiratory 26 30 18 Rate Blood Pressure 157/89 177/95 (mmHg) O2 Sat by Pulse 99 91 91 Oximetry 09/01/18 09/01/18 09/01/18 03:00 03:01 04:00 Temperature 99.0 F Pulse Rate 86 79 74 Respiratory 21 22 21 Rate Blood Pressure 164/88 (mmHg) O2 Sat by Pulse 98 96 97 Oximetry 09/01/18 09/01/18 09/01/18 04:01 05:00 05:01 Temperature Pulse Rate 79 74 80 Respiratory 19 19 21 Rate Blood Pressure 158/85 137/72 (mmHg) O2 Sat by Pulse 97 98 99 Oximetry 09/01/18 09/01/18 09/01/18 06:00 07:00 07:01 Temperature Pulse Rate 76 Respiratory 23 22 22 Rate Blood Pressure 147/83 151/93 (mmHg) O2 Sat by Pulse 96 97 97 Oximetry 09/01/18 09/01/18 07:50 07:52 Temperature Pulse Rate 79 Respiratory 18 20 Rate Blood Pressure (mmHg) O2 Sat by Pulse 99 Oximetry Oxygen Devices in Use Now: Nasal Cannula Appearance: 48 yo M in nAD, aAOx3 Eyes: No Scleral Icterus, PERRLA Ears/Nose/Mouth/Throat: NL Teeth, Lips, Gums, Mucous Membranes Moist Neck: NL Appearance and Movements; NL JVP, Trachea Midline Respiratory: Symmetrical Chest Expansion and Respiratory Effort, - - diffuse mid lung wheezes Cardiovascular: NL Sounds; No Murmurs; No JVD, RRR Abdominal: NL Sounds; No Tenderness; No Distention Lymphatic: No Cervical Adenopathy, No Axillary Adenopathy Extremities: No Edema Skin: No Rash or Ulcers, No Nodules or Sclerosis Neurological: Alert and Oriented x 3, NL Muscle Strength and Tone Result Diagrams: 08/30/18 04:49 08/30/18 04:49 Microbiology and Other Data: Microbiology 08/29/18 17:41 Aerobic Blood Culture - Final Blood Venous Bacillus Sp (Non-Anthracis) 08/29/18 19:51 Nasal Screen MRSA (PCR) - Final Nasal Mrsa Not Detected 08/29/18 18:43 Influenza Types A,B Antigen - Final Nasal Specimen received for Influenza A/B Molecular testing Assess/Plan/Problems-Billing Assessment: 48 yo M no known Pmhx except recently diagnosed COPD at [place] ED with respiratory failure - Patient Problems (1) Acute respiratory failure with hypoxia Comment: Acute on chronic - pt was on 3L home O2 for the month prior to presentation c/w IV steroids, dulera, duonebs standing BiPAP with breaks if tolerated Flutter valve Appreciate pulm consult Had fever at home -likely due to caute bronchitis tx with CTX and azithromycin although CXR without compelling PNA (2) Tobacco abuse Comment: nicotine patch Interested in chantix Starting chantix 0.5mg daily x 3 days Needs escalated dose on day 4 to BID (3) DVT prophylaxis Comment: lovenox Status and Disposition: inpatient
[2018-09-01] MEDS ORDERED: Pneumococcal *Vac Polyvalent 0.5 ML VIAL IM ONE (09:00)
[2018-09-01] MEDS: guaiFENesin ER TAB 600 MG PO SCH ×2 (09:00→20:49)
[2018-09-01] MEDS: Aspirin 81 mg CHEW TAB* 81 MG TAB.CHEW PO SCH (09:01)
[2018-09-01] MEDS: Nicotine PATCH 21 MG/24 HR* PATCH TRANSDERM SCH (09:02)
[2018-09-01] MEDS: VARENICLINE 1 MG PO SCH (09:11)
[2018-09-01] MEDS: Azithromycin IV(*) 250 MG in NS 0.9% 250 ML* 250 ML IVPB SCH (13:11)
[2018-09-01] MEDS: cefTRIAXone(*) 1 GM in NS 0.9% 50 ML* 50 ML IVPB SCH (17:56)
[2018-09-01] MEDS: Melatonin 3 MG TAB PO SCH (17:56)
[2018-09-01] MEDS: Enoxaparin(*) 40 MG/0.4 ML SYR SUBCUT SCH (17:56)
[2018-09-01] MEDS: Nicotine Patch Removal NOTE FOLLOW UP SCH (20:50)
[2018-09-02] MEDS: Albuterol/Ipratropium NEB.SOL* Albuterol 2.5 MG/Ipratropium 0.5 MG 3 ML INH SCH ×4 (02:59→19:02)
[2018-09-02 05:54] LABS: ABS Basophils 0 10^3/ul (0-0.2); ABS Eosinophils 0 10^3/ul (0-0.6); ABS Lymphocytes 0.9 10^3/ul (1.0-4.8); ABS Monocytes 0.3 10^3/ul (0-0.8); ABS Neutrophils 8.7 10^3/ul (1.5-7.7); ABS Nucleated RBC 0 10^3/ul; Eosinophil % 0 %; Hematocrit 38 % (36-46); Hemoglobin 12.3 g/dL (14.0-18.0); Lymphocyte % 8.9 %; Mean Corpuscular HGB Conc 32 g/dL (31-36); Mean Corpuscular Hemoglobin 28 pg (27-31); Mean Corpuscular Volume 86 fL (80-94); Mean Platelet Volume 7.9 fL (7.4-10.4); Nucleated Red Blood Cells % 0; Platelet Count 202 10^3/uL (150-450); Red Blood Count 4.46 10^6 /uL (4.18-5.48); Red Cell Distribution Width 17 % (10.5-15); White Blood Count 9.9 10^3/uL (3.5-10.8)
[2018-09-02 06:15] LABS: BUN/Creatinine Ratio 33.9 (8-20); Calcium 9.2 mg/dL (8.6-10.3); EGFR African American 187.6 (>60); EGFR Non-African American 155.1 (>60); Potassium 4.7 mmol/L (3.5-5.0)
[2018-09-02] MEDS: Mometasone/Formoter 200/5 MDI INH SCH ×2 (07:27→19:11)
[2018-09-02] MEDS: Nicotine PATCH 21 MG/24 HR* PATCH TRANSDERM SCH (07:52)
[2018-09-02] MEDS: methylPREDNISolone SOD 40 MG* 1 ML VIAL IV SCH ×2 (07:52→16:01)
[2018-09-02] MEDS: guaiFENesin ER TAB 600 MG PO SCH ×2 (07:52→20:59)
[2018-09-02] MEDS: Aspirin 81 mg CHEW TAB* 81 MG TAB.CHEW PO SCH (07:53)
[2018-09-02] MEDS: VARENICLINE 1 MG PO SCH (07:53)
[2018-09-02] MEDS: Acetaminophen TAB* 325 MG PO PRN (11:07)
[2018-09-02] MEDS: Azithromycin IV(*) 250 MG in NS 0.9% 250 ML* 250 ML IVPB SCH (11:38)
--- NOTE | 2018-09-02 13:28 | PN ---
Subjective Date of Service: 09/02/18 Interval History: Pt feels better and wants to go home Still significantly wheezing and had not been ambulating Objective Active Medications: Acetaminophen (Tylenol Tab*) 650 mg PO Q4H PRN PRN Reason: FEVER/PAIN Last Admin: 09/02/18 11:07 Dose: 650 mg Albuterol/Ipratropium (Duoneb (Albuterol 2.5 Mg/Ipratropium 0.5 Mg)) 1 neb INH [id number] AWAKE [facility] Last Admin: 09/02/18 13:12 Dose: 1 neb Aspirin (Aspirin 81 Mg Chew Tab*) 81 mg PO DAILY [facility] Last Admin: 09/02/18 07:53 Dose: 81 mg Docusate Sodium (Colace Cap*) 100 mg PO BID PRN PRN Reason: CONSTIPATION Enoxaparin Sodium (Lovenox(*)) 40 mg SUBCUT Q24HR@1830 [facility] Last Admin: 09/01/18 17:56 Dose: 40 mg Guaifenesin (Mucinex*) 600 mg PO BID [facility] Last Admin: 09/02/18 07:52 Dose: 600 mg Ceftriaxone Sodium 1 gm/ (Sodium Chloride) 50 mls @ 200 mls/hr IVPB Q24HR@1830 [facility] Last Admin: 09/01/18 17:56 Dose: 200 mls/hr Melatonin (Melatonin) 3 mg PO 2100 [facility] Methylprednisolone Sodium Succinate (Solu-Medrol 40 Mg) 40 mg IV Q8H [facility] Stop: 09/02/18 23:59 Last Admin: 09/02/18 07:52 Dose: 40 mg Mometasone Furoate/Formoterol Fumar (Dulera 200/5 Mdi*) 2 puff INH BID [facility] Last Admin: 09/02/18 07:27 Dose: 2 puff Nicotine (Nicotine Patch 21 Mg/24 Hr*) 1 patch TRANSDERM DAILY [facility] Last Admin: 09/02/18 07:52 Dose: 1 patch Ondansetron HCl (Zofran Inj*) 4 mg IV Q4H PRN PRN Reason: NAUSEA/VOMITING Pharmacy Profile Note (Nicotine Patch Removal Note*) 1 note FOLLOW UP 2099 [facility] Last Admin: 09/01/18 20:50 Dose: 1 note Senna (Senokot Tab*) 1 tab PO BID PRN PRN Reason: CONSTIPATION Varenicline (Chantix (Nf)) 0.5 mg PO DAILY [facility]; Protocol Stop: 09/03/18 09:01 Last Admin: 09/02/18 07:53 Dose: 0.5 mg Vital Signs - 8 hr 09/02/18 09/02/18 09/02/18 06:48 07:33 07:34 Temperature Pulse Rate 100 99 Respiratory 16 16 16 Rate Blood Pressure (mmHg) O2 Sat by Pulse 94 94 Oximetry 09/02/18 09/02/18 09/02/18 09:09 11:14 12:16 Temperature 97.8 F 97.0 F 97.0 F Pulse Rate 104 98 98 Respiratory 16 16 16 Rate Blood Pressure 148/81 167/89 167/89 (mmHg) O2 Sat by Pulse 94 94 94 Oximetry 09/02/18 13:13 Temperature Pulse Rate 89 Respiratory 17 Rate Blood Pressure (mmHg) O2 Sat by Pulse 92 Oximetry Oxygen Devices in Use Now: Nasal Cannula Appearance: 48 yo M in NAD, aAOx3 Eyes: No Scleral Icterus, PERRLA Ears/Nose/Mouth/Throat: NL Teeth, Lips, Gums, Mucous Membranes Moist Neck: NL Appearance and Movements; NL JVP Respiratory: Symmetrical Chest Expansion and Respiratory Effort, - - diffuse b/ l wheezes Cardiovascular: NL Sounds; No Murmurs; No JVD, RRR Abdominal: NL Sounds; No Tenderness; No Distention, No Hepatosplenomegaly Lymphatic: No Cervical Adenopathy Extremities: No Edema, No Clubbing, Cyanosis Skin: No Rash or Ulcers, No Nodules or Sclerosis Neurological: Alert and Oriented x 3, NL Muscle Strength and Tone Result Diagrams: 09/02/18 05:20 09/02/18 05:20 Microbiology and Other Data: Microbiology 08/29/18 17:41 Aerobic Blood Culture - Final Blood Venous Bacillus Sp (Non-Anthracis) 08/29/18 19:51 Nasal Screen MRSA (PCR) - Final Nasal Mrsa Not Detected 08/29/18 18:43 Influenza Types A,B Antigen - Final Nasal Specimen received for Influenza A/B Molecular testing Assess/Plan/Problems-Billing Assessment: 48 yo M no known Pmhx except recently diagnosed COPD at [facility] with respiratory failure - Patient Problems (1) Acute respiratory failure with hypoxia Comment: Acute on chronic - pt was on 3L home O2 for the month prior to presentation jaclyn/savi gunn standing . Switching Solu Medrol to Prednisone Had fever at home -likely due to acute bronchitis tx with CTX (completed 5 days course of azithromycin) although CXR without compelling PNA (2) Tobacco abuse Comment: nicotine patch Interested in chantix Starting chantix 0.5mg daily x 3 days Needs escalated dose on day 4 to BID (3) DVT prophylaxis Comment: lovenox (4) Blood culture positive for microorganism Comment: one out of 4 bottle blood cx positive for Bacillus sp. Likely a contaminant Status and Disposition: inpatient
[2018-09-02] MEDS: cefTRIAXone(*) 1 GM in NS 0.9% 50 ML* 50 ML IVPB SCH (17:53)
[2018-09-02] MEDS: Enoxaparin(*) 40 MG/0.4 ML SYR SUBCUT SCH (17:53)
[2018-09-02] MEDS ORDERED: amLODIPine TAB* 5 MG PO ONE (20:27)
[2018-09-02] MEDS ORDERED: Melatonin 3 MG TAB PO SCH (21:00)
[2018-09-02] MEDS: Nicotine Patch Removal NOTE FOLLOW UP SCH (22:13)
[2018-09-03] MEDS: Albuterol/Ipratropium NEB.SOL* Albuterol 2.5 MG/Ipratropium 0.5 MG 3 ML INH SCH ×3 (00:54→13:36)
[2018-09-03] MEDS: Mometasone/Formoter 200/5 MDI INH SCH (07:12)
[2018-09-03] MEDS: Aspirin 81 mg CHEW TAB* 81 MG TAB.CHEW PO SCH (08:08)
[2018-09-03] MEDS: guaiFENesin ER TAB 600 MG PO SCH (08:08)
[2018-09-03] MEDS: VARENICLINE 1 MG PO SCH (08:09)
[2018-09-03] MEDS: Nicotine PATCH 21 MG/24 HR* PATCH TRANSDERM SCH (08:10)
[2018-09-03] MEDS ORDERED: predniSONE TAB* 20 MG PO SCH (09:00)
--- NOTE | 2018-09-03 14:17 | DS ---
CC: Dr. Maral Blake; Dr. Espitia* DISCHARGE SUMMARY: DATE OF ADMISSION: 08/29/18 DATE OF DISCHARGE: 09/03/18 PRIMARY CARE PROVIDER: Maral Blake MD. DISCHARGE DIAGNOSES: Acute hypoxemic respiratory failure due to chronic obstructive pulmonary disease exacerbation and acute bronchitis. MEDICATIONS AT DISCHARGE: Include: 1. Albuterol inhaler on a p.r.n. basis. 2. DuoNeb every q.4 hours p.r.n. 3. Dulera 200/5 two inhalations b.i.d. 4. Nicotine patch 21 mg 1 patch transdermally daily. 5. Prednisone taper 60 mg daily for 2 days, then 40 mg daily for 2 days, then 20 mg daily for 2 days, then 10 mg daily for 2 days, then stop. 6. Chantix 0.5 mg b.i.d. for a total of 4 days and then start Chantix 1 mg b.i.d. for the remaining days. 7. Norvasc 5 mg daily. The patient is to continue his oxygen, continue supply at 3 L. LABORATORY DATA AND STUDIES PERFORMED DURING THE HOSPITAL STAY: On 09/02/18, sodium of 139, potassium 4.7, chloride 98, carbon dioxide 38, BUN 19, creatinine 0.56. The patient's lipid profile shows triglycerides of 57, cholesterol 118, LDL 56, and HDL 48. CBC: White blood cell count of 9.9, hemoglobin of 12.3, hematocrit of 38, and platelets of 202. ABG: Last obtained on 08/30/18, showed pH of 7.36, PO2 of 110, PCO2 of 64, bicarb of 31.5. HOSPITALIZATION COURSE: George Savage is a 48-year-old male with a history of significant smoking, who presented to the hospital complaining of shortness of breath and wheezing. The patient suffered from acute hypoxemic respiratory failure and required treatment with BiPAP. The patient was placed on steroids as well as antibiotics due to suspected acute bronchitis. He was treated in the ICU with BiPAP for a couple of days and then was able to be transferred to the medical floor on oxygen at his baseline 3 L, which he used at home for the past month prior to his admission. For the next couple of days, his wheezing had improved, although did not resolve by the time of discharge. He ambulated down the hallway with good oxygenation on 3 L of oxygen nasal cannula. He completed 6 days of treatment with ceftriaxone and 5 days of treatment with azithromycin, and antibiotics are not going to be prescribed at his discharge. He is going to be continued on oxygen and prednisone taper. The patient also was started on Chantix during his hospital stay, which is going to be continued. He was also started on Dulera. Dr. Espitia saw the patient on 08/31/18 for a pulmonology consult and recommended PFTs as outpatient and evaluation for BiPAP. She also recommended for the patient to follow up with Dr. Espitia at [facility]. At discharge, the patient is recommended to follow up with Dr. Espitia in approximately 2 weeks and his primary care provider Dr. Blake in approximately 4 to 7 days. PHYSICAL EXAMINATION: At the time of discharge, blood pressure 152/81, heart rate of 92 and regular, respiratory rate 20, oxygen saturation 98% on 3 L of oxygen, temperature 97.9. General: The patient is a very pleasant 48-year-old male who is in no acute distress. Alert, awake, oriented x3. HEENT: Head: Atraumatic, normocephalic. Eyes: Pupils equal and reactive to light and accommodation. Oropharynx is clear. Mucosa moist. Neck: Supple. No JVD. No bruits bilaterally. Cardiovascular: Regular rate and rhythm. No murmur. Respiratory: Scant wheezes bilateral mid lungs. Extremities: There is no edema. Pulses 2+ bilaterally. There no clubbing or cyanosis. Abdomen: Soft, nontender. Bowel sounds presents in all 4 quadrants. Neuro evaluation: Speech clear. Cranial nerves II through XII grossly intact. Motor strength is 5/5 bilaterally. CONDITION ON DISCHARGE: Stable. Please note that the patient was hypertensive during his hospital stay. I suspect a steroid could have contributed. Nevertheless, he is going to be discharged on a small dose of Norvasc at 5 mg daily. Please note that this is a short summary of the patient's hospitalization. Please refer to further medical records for details. TIME SPENT: Approximately 55 minutes was spent on the patient's discharge. [id number]/CPS #: [id number] MTDD
[2018-09-03 15:44] VITALS: BP 159/85
== END 2018-09-03 17:58 | disposition home or self-care (01) | DRG 140 ==
LOC: ED 16:08 → ICU 18:43 → MEDTELE 09-01 05:41
PROVIDERS: ADMIT Internal Medicine; ATTEND Internal Medicine
PROC: 5A09357 Assistance with Respiratory Ventilation, Less than 24 Consecutive Hours, Continuous Positive Airway Pressure (ICD-10-PCS; principal; 2018-08-29)
DX: J44.1 Chronic obstructive pulmonary disease with (acute) exacerbation (principal); J96.21 Acute and chronic respiratory failure with hypoxia; J96.22 Acute and chronic respiratory failure with hypercapnia; E87.2 Acidosis; J44.0 Chronic obstructive pulmonary disease with (acute) lower respiratory infection; I15.8 Other secondary hypertension; F17.210 Nicotine dependence, cigarettes, uncomplicated; T38.0X5A Adverse effect of glucocorticoids and synthetic analogues, initial encounter; F41.9 Anxiety disorder, unspecified; D64.9 Anemia, unspecified; E66.9 Obesity, unspecified; J20.8 Acute bronchitis due to other specified organisms; Y92.239 Unspecified place in hospital as the place of occurrence of the external cause; Z72.89 Other problems related to lifestyle; Z88.8 Allergy status to other drugs, medicaments and biological substances; Z99.81 Dependence on supplemental oxygen; Z23 Encounter for immunization; Z68.37 Body mass index [BMI] 37.0-37.9, adult
CPT/HCPCS: 36415; 36600; 71045; 80048; 80053; 80061; 82803; 83036; 83605; 83735; 83880; 84484; 85025; 85379; 85610; 85730; 86850; 86900; 86901; 87040; 87077; 87205; 87641; 90686; 90732; 93005; 93306; 94640; 94660; 99284; A9270-GY; J0456; J0696; J1100; J1650; J2270; J2920; J3475; J7512

== ENCOUNTER 2019-03-09 06:31 | Emergency (ER) | payer OTHER ==
[2019-03-09] MEDS ORDERED: Levofloxacin TAB* 500 MG PO ONE (07:45)
[2019-03-09] MEDS ORDERED: predniSONE TAB* 20 MG PO ONE (07:47)
[2019-03-09] MEDS ORDERED: Albuterol/Ipratropium NEB.SOL* Albuterol 2.5 MG/Ipratropium 0.5 MG 3 ML INH ONE (07:47)
[2019-03-09 08:22] LABS: ABS Eosinophils 0.2 10^3/ul (0-0.6); ABS Lymphocytes 1.1 10^3/ul (1.0-4.8); ABS Monocytes 0.7 10^3/ul (0-0.8); ABS Neutrophils 7.7 10^3/ul (1.5-7.7); Eosinophil % 2.3 %; Hematocrit 37 % (42-52); Hemoglobin 11.4 g/dL (14.0-18.0); Mean Corpuscular HGB Conc 31 g/dL (31-36); Mean Corpuscular Hemoglobin 27 pg (27-31); Mean Corpuscular Volume 88 fL (80-94); Mean Platelet Volume 7.1 fL (7.4-10.4); Platelet Count 260 10^3/uL (150-450); Red Blood Count 4.18 10^6 /uL (4.18-5.48); Red Cell Distribution Width 16 % (10-15); White Blood Count 9.7 10^3/uL (3.5-10.8)
[2019-03-09 08:29] LABS: Albumin 3.6 g/dL (3.2-5.2); Albumin/Globulin Ratio 1.1 (1-3); BUN/Creatinine Ratio 23.1 (8-20); C Reactive Protein 44.55 mg/L (<8.01); Calcium 9.6 mg/dL (8.6-10.3); EGFR Non-African American 105.8 (>60); Globulin 3.2 g/dL (2-4); Potassium 4.3 mmol/L (3.5-5.0); Total Bilirubin 0.2 mg/dL (0.2-1.0); Total Protein 6.8 g/dL (6.4-8.9)
[2019-03-09] MEDS ORDERED: Acetaminophen TAB* 325 MG PO ONE (08:55)
[2019-03-09 08:59] VITALS: BP 141/73
--- NOTE | 2019-03-09 10:08 | ED ---
Respiratory - HPI Summary HPI Summary: This patient is a 48-year-old male with history of COPD, smoking wearing 3L O2 PRN. Patient states he recently quit smoking 10 days ago. He denies any fevers , sweats, chills. He has endorsed some nasal congestion, productive cough with thick green sputum and difficulty breathing 5 days. He states he has not been using his O2 at home. His girlfriend at bedside reports an O2 sat of 50s several days ago, however patient refused to come to the hospital. Patient was 78% on room air in triage. On 3 L nasal cannula, patient's O2 sat improved to 91%. He uses O2, 3 L at home at bedtime only, but typically does not use O2 during the day. He states he has been feeling otherwise well. He denies a history of congestive heart failure him a abnormal weight gain or chest pressure. Patient states he was admitted for his shortness of breath in the past, however that was when he did not have O2 at home. - History of Current Complaint Chief Complaint: EDShortnessOfBreath Stated Complaint: SOB PER PT Time Seen by Provider: 03/09/19 07:35 Hx Obtained From: Patient Onset/Duration: Gradual Onset Timing: Constant Initial Severity: Moderate Current Severity: Moderate Pain Intensity: 0 Character: Cough (Productive) Sputum Amount: Moderate Sputum Color: Yellow, Green Aggravating Factor(s): URI Alleviating Factor(s): Nothing Associated Signs and Symptoms: Negative - Risk Factors Pulmonary Embolism Risk Factors: Smoking Cardiac Risk Factors: Smoking Pseudomonas Risk Factors: Chronic Lung Disease Tuberculosis Risk Factors: Chronic Respiratory Failure, Smoking - Allergy/Home Medications Allergies/Adverse Reactions: Allergies Allergy/AdvReac Type Severity Reaction Status Date / Time prochlorperazine Allergy Muscle Ache Verified 03/09/19 06:40 [From Compazine] PMH/Surg Hx/FS Hx/Imm Hx Previously Healthy: Yes Endocrine/Hematology History: Denies: Hx Diabetes Cardiovascular History: Reports: Other Cardiovascular Problems/Disorders - Chest pain with exertion Denies: Hx Hypertension Respiratory History: Reports: Hx Chronic Obstructive Pulmonary Disease (COPD) - On 2L at home x1year Denies: Hx Asthma Sensory History: Reports: Hx Contacts or Glasses Denies: Hx Deafness, Hx Hearing Aid Opthamlomology History: Reports: Hx Contacts or Glasses - Surgical History Surgery Procedure, Year, and Place: none reported - Immunization History Hx Pertussis Vaccination: No Immunizations Up to Date: Yes Infectious Disease History: No Infectious Disease History: Denies: Traveled Outside the [place] in Last 30 Days - Family History Known Family History: Negative: Hypertension, Diabetes - Social History Occupation: Employed Full-time Lives: With Family Alcohol Use: Rare Hx Substance Use: No Substance Use Type: Reports: None Hx Tobacco Use: Yes Smoking Status (MU): Light Every Day Tobacco Smoker Type: Cigarettes Amount Used/How Often: 1/2PPD Length of Time of Smoking/Using Tobacco: 25 years Have You Smoked in the Last Year: Yes Review of Systems Negative: Fever, Chills, Fatigue, Skin Diaphoresis Negative: Palpitations, Chest Pain Positive: Shortness Of Breath, Cough Negative: Abdominal Pain, Vomiting, Diarrhea, Nausea Genitourinary: Negative Positive: no symptoms reported, see HPI Negative: Arthralgia, Myalgia Neurological: Negative All Other Systems Reviewed And Are Negative: Yes Physical Exam Triage Information Reviewed: Yes Vital Signs On Initial Exam: Initial Vitals Temp Pulse Resp BP Pulse Ox 99.4 F 92 20 135/70 78 03/09/19 06:33 03/09/19 06:33 03/09/19 06:33 03/09/19 06:33 03/09/19 06:33 Vital Signs Reviewed: Yes Appearance: Positive: Well-Appearing, Well-Nourished Skin: Positive: Warm, Skin Color Reflects Adequate Perfusion Head/Face: Positive: Normal Head/Face Inspection Eyes: Positive: EOMI, Conjunctiva Clear Neck: Positive: Supple, No Lymphadenopathy Respiratory/Lung Sounds: Positive: Breath Sounds Present, Rhonchi - LLQ, Wheezes - bilateral. Negative: Stridor, Tracheal Deviation, Unable to speak in full sentences, Fatigue Cardiovascular: Positive: RRR, Pulses are Symmetrical in both Upper and Lower Extremities, Leg Edema Left - +1, Leg Edema Right - +1 Musculoskeletal: Positive: Normal, Strength/ROM Intact Neurological: Positive: Speech Normal Psychiatric: Positive: Affect/Mood Appropriate Diagnostics - Vital Signs Vital Signs Temp Pulse Resp BP Pulse Ox 03/09/19 09:37 99.0 F 82 21 141/73 93 03/09/19 09:00 84 24 95 03/09/19 08:47 86 22 141/73 96 03/09/19 08:38 21 03/09/19 08:35 88 16 98 09/30/19 08:16 81 21 128/92 96 03/09/19 08:00 81 16 97 03/09/19 07:46 79 26 144/72 96 03/09/19 07:17 85 36 160/102 91 03/09/19 07:00 83 21 95 03/09/19 06:46 88 22 146/77 93 03/09/19 06:45 7 03/09/19 06:33 99.4 F 92 20 135/70 78 - Laboratory Lab Results: Lab Results 03/09/19 03/09/19 03/09/19 Range/Units 07:58 07:58 07:58 WBC 9.7 (3.5-10.8) 10^3/uL RBC 4.18 (4.18-5.48) 10^6 /uL Hgb 11.4 L (14.0-18.0) g/dL Hct 37 L (42-52) % MCV 88 (80-94) fL MCH 27 (27-31) pg MCHC 31 (31-36) g/dL RDW 16 H (10-15) % Plt Count 260 (150-450) 10^3/uL MPV 7.1 L (7.4-10.4) fL Neut % (Auto) 79.2 % Lymph % (Auto) 11.0 % Stanton % (Auto) 7.4 % Eos % (Auto) 2.3 % Baso % (Auto) 0.1 % Absolute Neuts (auto) 7.7 (1.5-7.7) 10^3/ul Absolute Lymphs (auto) 1.1 (1.0-4.8) 10^3/ul Absolute Monos (auto) 0.7 (0-0.8) 10^3/ul Absolute Eos (auto) 0.2 (0-0.6) 10^3/ul Absolute Basos (auto) 0.0 (0-0.2) 10^3/ul Absolute Nucleated RBC 0.0 10^3/ul Nucleated RBC % 0.0 Sodium 140 (135-145) mmol/L Potassium 4.3 (3.5-5.0) mmol/L Chloride 97 L (101-111) mmol/L Carbon Dioxide 41 H* (22-32) mmol/L Anion Gap 2 (2-11) mmol/L BUN 18 (6-24) mg/dL Creatinine 0.78 (0.67-1.17) mg/dL Est GFR ( Amer) 128.0 (>60) Est GFR (Non-Af Amer) 105.8 (>60) BUN/Creatinine Ratio 23.1 H (8-20) Glucose 134 H (70-100) mg/dL Lactic Acid 0.7 (0.5-2.0) mmol/L Calcium 9.6 (8.6-10.3) mg/dL Total Bilirubin 0.20 (0.2-1.0) mg/dL AST 18 (13-39) U/L ALT 23 (7-52) U/L Alkaline Phosphatase 70 (34-104) U/L C-Reactive Protein 44.55 H (<8.01) mg/L Total Protein 6.8 (6.4-8.9) g/dL Albumin 3.6 (3.2-5.2) g/dL Globulin 3.2 (2-4) g/dL Albumin/Globulin Ratio 1.1 (1-3) Result Diagrams: 03/09/19 07:58 03/09/19 07:58 Lab Statement: Any lab studies that have been ordered have been reviewed, and results considered in the medical decision making process. Disposition - Course Course Of Treatment: This patient's evaluated for cough and congestion with the need for O2 demand. Patient states he has been not using his O2 at home even though he has been feeling short of breath. He does use O2 3 L at home at bedtime, however none during the day. Quit smoking 10 days ago. Patient does have a history of COPD. On arrival into the ED, the patient was noted to be 70 % on room air and was increased to 91% on 3 L in triage. Patient states he felt immediately improved after oxygen was placed. Lungs rhonchorous throughout the left lung base, with slight wheezing throughout bilateral chest. Patient was given DuoNeb with good improvement. Chest x-ray obtained: IMPRESSION: PATCHY ATELECTASIS VERSUS EARLY CONSOLIDATION OF THE LEFT LUNG BASE. Patient was given Levaquin in the ED. While in the ED, he states he has noticed some swelling to his bilateral lower x-rays. No history of CHF. He has 1+ pitting edema bilaterally. This patient is not requiring more O2 sat compared with at home, patient is afebrile and labs are unremarkable except for a CO2 level of 41 and a CRP of 44. For this, patient is stable and will be able to be discharged home with the diagnosis of pneumonia. He is able to safely be treated as an outpatient at this time, however he is given strict return precautions. Patient and patient's understand return precautions. He is ambulating well at discharge. - Differential Dx - Cardiopulmonary Differential Diagnoses - Cardiopulmonary: Other - Bronchitis, COPD exacerbation - Diagnoses Provider Diagnoses: Pneumonia Discharge ED - Sign-Out/Discharge Documenting (check all that apply): Patient Departure Patient Received Moderate/Deep Sedation with Procedure: No - Discharge Plan Condition: Stable Disposition: HOME Prescriptions: Albuterol/Ipratropium NEB.CHEPE* [Duoneb (Albuterol 2.5 MG/Ipratropium 0.5 MG)] 1 neb INH Q4H #20 neb.soln Levofloxacin TAB* [Levaquin TAB*] 500 mg PO DAILY #4 tab Patient Education Materials: Bacterial Pneumonia (ED) Forms: *Work Release Referrals: Maral Blake MD [Primary Care Provider] - Additional Instructions: Duo-neb: 1 treatment up to every 4 hours as needed for shortness of breath Levaquin once daily x 4 days - start this tomorrow If symptoms become worse, return to the ED - Billing Disposition and Condition Condition: STABLE Disposition: Home - Attestation Statements Provider Attestation: I was available for consultation for this patient. I did not evaluate the patient or participate in any medical decision making or disposition decisions unless I am specifically named in the chart as having consulted on the patient. If I have consulted on the patient, please see my own ED note on the patient encounter. Vera Davila MD
== END 2019-03-09 09:30 | disposition home or self-care (01) ==
LOC: ED 06:31
DX: J18.9 Pneumonia, unspecified organism (principal); J44.9 Chronic obstructive pulmonary disease, unspecified; Z99.81 Dependence on supplemental oxygen; Z88.8 Allergy status to other drugs, medicaments and biological substances; F17.210 Nicotine dependence, cigarettes, uncomplicated
CPT/HCPCS: 36415; 71045; 80053; 83605; 85025; 86140; 87070; 87077; 87184; 87186; 87205; 93005; 99283; A9270-GY; J7512

== ENCOUNTER 2019-07-14 13:32 | Inpatient (IN) | payer SELFPAY ==
[2019-07-14 15:28] LABS: ABS Eosinophils 0.1 10^3/ul (0-0.6); ABS Lymphocytes 0.9 10^3/ul (1.0-4.8); ABS Monocytes 0.5 10^3/ul (0-0.8); ABS Neutrophils 2.7 10^3/ul (1.5-7.7); Eosinophil % 2.3 %; Hematocrit 41 % (42-52); Hemoglobin 13.3 g/dL (14.0-18.0); Mean Corpuscular HGB Conc 32 g/dL (31-36); Mean Corpuscular Hemoglobin 28 pg (27-31); Mean Corpuscular Volume 86 fL (80-94); Platelet Count 154 10^3/uL (150-450); Red Blood Count 4.77 10^6 /uL (4.18-5.48); Red Cell Distribution Width 16 % (10-15); White Blood Count 4.2 10^3/uL (3.5-10.8)
[2019-07-14 15:45] LABS: ALT 21 U/L (7-52); AST 16 U/L (13-39); Albumin 3.8 g/dL (3.2-5.2); Albumin/Globulin Ratio 1.2 (1-3); Alkaline Phosphatase 80 U/L (34-104); BUN/Creatinine Ratio 20.8 (8-20); Blood Urea Nitrogen 16 mg/dL (6-24); Calcium 9.1 mg/dL (8.6-10.3); Chloride 97 mmol/L (101-111); EGFR African American 129.4 (>60); EGFR Non-African American 106.9 (>60); Globulin 3.2 g/dL (2-4); Glucose 106 mg/dL (70-100); Magnesium 1.9 mg/dL (1.9-2.7); Potassium 4.4 mmol/L (3.5-5.0); Sodium 139 mmol/L (135-145)
[2019-07-14 15:47] LABS: Troponin I 0.01 ng/mL (<0.03)
[2019-07-14 15:48] LABS: CO2 Carbon Dioxide 43 mmol/L (22-32)
--- NOTE | 2019-07-14 16:56 | ED ---
Shortness of Breath - HPI Summary HPI Summary: Patient is a 49 y/o M w/ Hx of COPD and DVT who presents to [facility] with complaints of SOB and BLE edema. SOB has been present for the past three weeks, states that the patient has been stubborn and refused to be evaluated for his Sx until today. Patient reports that this presentation of Sx feels similar to previous COPD exacerbations. Patient denies CP. He is unable to lie down flat due to SOB. Patient states that he will occasionally awaken at night with significant SOB. He denies Hx of heart failure. He is on 3 L o2 at home; however , he cannot afford portable o2 tanks. Patient is a current smoker, states the patient has been decreasing the amount of cigarettes that he smokes. He was prescribed Eliquis but does not take it as he cannot afford this medication. Home medications and allergies are reviewed. - History of Current Complaint Chief Complaint: EDShortnessOfBreath Time Seen by Provider: 07/14/19 16:29 Hx Obtained From: Patient Onset/Duration: Lasting Weeks, Still Present Timing: Constant Dyspnea At: Rest Alleviating Factors: Oxygen Associated Signs & Symptoms: Edema - Allergy/Home Medications Allergies/Adverse Reactions: Allergies Allergy/AdvReac Type Severity Reaction Status Date / Time prochlorperazine Allergy Muscle Ache Verified 03/09/19 06:40 [From Compazine] PMH/Surg Hx/FS Hx/Imm Hx Endocrine/Hematology History: Denies: Hx Diabetes Cardiovascular History: Reports: Other Cardiovascular Problems/Disorders - Chest pain with exertion Denies: Hx Hypertension Respiratory History: Reports: Hx Chronic Obstructive Pulmonary Disease (COPD) - On 2L at home x1year Denies: Hx Asthma Sensory History: Reports: Hx Contacts or Glasses Denies: Hx Deafness, Hx Hearing Aid Opthamlomology History: Reports: Hx Contacts or Glasses - Surgical History Surgery Procedure, Year, and Place: none reported Infectious Disease History: No Infectious Disease History: Denies: Traveled Outside the [place] in Last 30 Days - Family History Known Family History: Negative: Hypertension, Diabetes - Social History Alcohol Use: Rare Hx Substance Use: No Substance Use Type: Reports: None Hx Tobacco Use: Yes Smoking Status (MU): Light Every Day Tobacco Smoker Type: Cigarettes Amount Used/How Often: 1/2PPD Length of Time of Smoking/Using Tobacco: 25 years Have You Smoked in the Last Year: Yes Review of Systems Negative: Chest Pain Positive: Shortness Of Breath Positive: Edema - BLE All Other Systems Reviewed And Are Negative: Yes Physical Exam - Summary Physical Exam Summary: Constitutional: Well-developed, Well-nourished, Alert. (-) Distressed Skin: Warm, Dry HENT: Normocephalic; Atraumatic Eyes: Conjunctiva normal Neck: Musculoskeletal ROM normal neck. (-) JVD, (-) Stridor, (-) Tracheal deviation Cardio: Rhythm regular, rate normal, Heart sounds normal; Intact distal pulses; Radial pulses are 2+ and symmetric. (-) Murmur Pulmonary/Chest wall: Patient is speaking in two word sentences, rales in all lung sommers noted. Abd: Soft, (-) tenderness, (-) Distension, (-) Guarding, (-) Rebound Musculoskeletal: 2+ BLE pedal edema Lymph: (-) Cervical adenopathy Neuro: Alert, Oriented x3 Psych: Mood and affect Normal Triage Information Reviewed: Yes Vital Signs On Initial Exam: Initial Vitals Temp Pulse Resp BP Pulse Ox 97.2 F 86 18 140/77 95 07/14/19 13:36 07/14/19 13:36 07/14/19 13:36 07/14/19 13:36 07/14/19 13:36 Vital Signs Reviewed: Yes Procedures - Sedation Patient Received Moderate/Deep Sedation with Procedure: No Diagnostics - Vital Signs Vital Signs Temp Pulse Resp BP Pulse Ox 07/14/19 16:36 83 30 121/79 95 07/14/19 16:27 113 87 07/14/19 16:00 98.0 F 81 18 134/70 95 07/14/19 13:36 97.2 F 86 18 140/77 95 - Laboratory Lab Results: Lab Results 07/14/19 07/14/19 Range/Units 15:09 15:09 WBC 4.2 (3.5-10.8) 10^3/uL RBC 4.77 (4.18-5.48) 10^6 /uL Hgb 13.3 L (14.0-18.0) g/dL Hct 41 L (42-52) % MCV 86 (80-94) fL MCH 28 (27-31) pg MCHC 32 (31-36) g/dL RDW 16 H (10-15) % Plt Count 154 (150-450) 10^3/uL MPV 8.0 (7.4-10.4) fL Neut % (Auto) 64.8 % Lymph % (Auto) 21.0 % [place] % (Auto) 11.6 % Eos % (Auto) 2.3 % Baso % (Auto) 0.3 % Absolute Neuts (auto) 2.7 (1.5-7.7) 10^3/ul Absolute Lymphs (auto) 0.9 L (1.0-4.8) 10^3/ul Absolute Monos (auto) 0.5 (0-0.8) 10^3/ul Absolute Eos (auto) 0.1 (0-0.6) 10^3/ul Absolute Basos (auto) 0.0 (0-0.2) 10^3/ul Absolute Nucleated RBC 0.0 10^3/ul Nucleated RBC % 0.0 Sodium 139 (135-145) mmol/L Potassium 4.4 (3.5-5.0) mmol/L Chloride 97 L (101-111) mmol/L Carbon Dioxide 43 H* (22-32) mmol/L Anion Gap Not Reportable BUN 16 (6-24) mg/dL Creatinine 0.77 (0.67-1.17) mg/dL Est GFR ( Amer) 129.4 (>60) Est GFR (Non-Af Amer) 106.9 (>60) BUN/Creatinine Ratio 20.8 H (8-20) Glucose 106 H (70-100) mg/dL Calcium 9.1 (8.6-10.3) mg/dL Magnesium 1.9 (1.9-2.7) mg/dL Total Bilirubin 0.30 (0.2-1.0) mg/dL AST 16 (13-39) U/L ALT 21 (7-52) U/L Alkaline Phosphatase 80 (34-104) U/L Troponin I 0.01 (<0.03) ng/mL C-Reactive Protein 11.10 H (<8.01) mg/L Total Protein 7.0 (6.4-8.9) g/dL Albumin 3.8 (3.2-5.2) g/dL Globulin 3.2 (2-4) g/dL Albumin/Globulin Ratio 1.2 (1-3) Result Diagrams: 02/04/20 15:09 07/14/19 15:09 Lab Statement: Any lab studies that have been ordered have been reviewed, and results considered in the medical decision making process. - Radiology CXR Radiology Interpretation Completed By: Radiologist Summary of Radiographic Findings: IMPRESSION: Bibasilar airspace opacification could be related atelectasis or infiltrate. THIS REPORT WAS REVIEWED BY ED PHYSICIAN. - EKG 1950 Cardiac Rate: NL - rate of 78 BPM EKG Rhythm: Sinus Rhythm Summary of EKG Findings: EKG showed NSR with rate of 78 BPM, no STEMI, no ischemic changes. ED physician has reviewed and interpreted this EKG. Course/Dx - Course Course Of Treatment: Patient is here with a COPD exacerbation. Patient had a VBG which showed a PCO2 of 95. Patient started on BiPAP. Patient does have a history of blood clots and is not on blood thinners due to not being able to afford them. Patient had a negative d-dimer. Given patient's clinical picture labs, patient does not need a CTA at this point. - Diagnoses Provider Diagnoses: COPD exacerbation - Physician Notifications Discussed Care of Patient With: Elissa Bah Time Discussed With Above Provider: 18:47 Instructed by Provider To: Other - Patient's case was discussed with Dr. Bah, Dr. Bah accepts for admission. Discharge ED - Sign-Out/Discharge Documenting (check all that apply): Patient Departure - admit All imaging exams completed and their final reports reviewed: Yes - Discharge Plan Condition: Stable Disposition: ADMITTED TO [facility] - Billing Disposition and Condition Condition: STABLE Disposition: Admitted to [facility] - Attestation Statements Document Initiated by Indira: Yes Documenting Scribe: LEOPOLDO JAMES Provider For Whom Indira is Documenting (Include Credential): CRISTIANE PARSON MD Scribe Attestation: LEOPOLDO Clifton, scribed for CRISTIANE PARSON MD on 07/14/19 at 2116. Scribe Documentation Reviewed: Yes Provider Attestation: The documentation as recorded by the LEOPOLDO harman accurately reflects the service I personally performed and the decisions made by me, CRISTIANE PARSON MD Status of Scribe Document: Viewed
[2019-07-14] MEDS ORDERED: Albuterol/Ipratropium NEB.SOL* Albuterol 2.5 MG/Ipratropium 0.5 MG 3 ML INH ONE (17:58)
[2019-07-14 18:31] LABS: Influenza A Molecular Negative (Negative); Influenza B Molecular Negative (Negative)
[2019-07-14] MEDS ORDERED: methylPREDNISolone 125 MG* 2 ML VIAL IV ONE (18:43)
[2019-07-14] MEDS ORDERED: Cefepime(*) 1 GM in NS 0.9% 50 ML* 50 ML IVPB ONE (18:43)
[2019-07-14] MEDS ORDERED: NS 0.9% 50 ML* 50 ML ONE (18:46)
[2019-07-14] MEDS ORDERED: Cefepime 1 GM in Dextrose(*) 1 GM/50 ML BAG IV ONE (18:49)
[2019-07-14] MEDS ORDERED: Albuterol 2.5 MG/3 ML NEB.SOL* (0.083%) INH PRN (19:29)
[2019-07-14] MEDS ORDERED: Acetaminophen TAB* 325 MG PO PRN (19:29)
[2019-07-14] MEDS ORDERED: Ondansetron INJ* 2 MG/ML VIAL IV PRN (19:29)
[2019-07-14] MEDS ORDERED: NS 0.9% 1000 ML** 1,000 ML IV SCH (19:30)
[2019-07-14] MEDS: Mometasone/Formoter 200/5 MDI INH SCH (19:37)
[2019-07-14] MEDS: methylPREDNISolone 125 MG* 2 ML VIAL IV SCH (20:59)
[2019-07-14] MEDS: Azithromycin 500 mg/250 ml NS 500 MG/250 ML BAG IVPB SCH (21:20)
--- NOTE | 2019-07-14 21:48 | HP ---
CC: Dr. Blake * HISTORY AND PHYSICAL: DATE OF ADMISSION: 07/14/19 PRIMARY CARE PROVIDER: Dr. Blake. ATTENDING PHYSICIAN WHILE IN THE HOSPITAL: Debra Daigle DO * (report dictated by Gerardo Doll NP) CHIEF COMPLAINT: 1. Shortness of breath. 2. Cough. HISTORY OF PRESENT ILLNESS: Mr. Savage is a 49-year-old male patient with a history of severe COPD. He is on 3 L of oxygen chronically, who states that over the last month, he has been progressively getting more and more short of breath particularly with exertion. He denies any URI symptoms. He states he has not really been coughing that much, though at times he has been. He denies any fevers or chills. Denies feeling congested or stuffed up or any recent sick contacts. He states that he was concerned because his breathing just was not getting any better. To his knowledge, he did not have any noted fevers, but there was concern because his breathing just was not getting any better. He is more short of breath with exertion. He denied any orthopnea and he, to me, denied having any weight gain. He was concerned because he has been having increased swelling in his lower extremities. Because of these findings, we were asked to evaluate for admission. PAST MEDICAL HISTORY: Significant for: 1. COPD. 2. He has a history of heart murmur. PAST SURGICAL HISTORY: He denied. MEDICATIONS: Home meds according to the patient include: 1. Amlodipine 5 mg daily. 2. Chantix 1 tablet daily. 3. Albuterol 1 puff, inhale every 4 hours as needed. 4. DuoNeb 1 neb, inhale every 4 hours. 5. Dulera 2 puffs, inhale b.i.d. ALLERGIES: Allergies to medications include COMPAZINE. FAMILY HISTORY: His mother of COPD. Father's history is unknown. SOCIAL HISTORY: He is still a mdyq-i-epoz-a-day smoker for about 34 hours. Occasionally drinks alcohol. Surrogate decision maker is his significant other , Klarissa. REVIEW OF SYSTEMS: There is no documented fever. He denied having any significant weight change. There is no double vision. Denied having any ear discharge. There is no rhinorrhea. No sore throat. No thyroid enlargement. Denied having any chest pain. There is no orthopnea. There is shortness of breath. There is dyspnea with exertion. Denied any abdominal pain. No nausea , no vomiting. No dysuria, no frequency. No seizure, no loss of consciousness. No pruritus and no skin ulcerations. Review of 14 systems completed, all others negative. PHYSICAL EXAMINATION GENERAL: At this time, Mr. Savage is a 49-year-old male patient. He does appear to be in a mild to moderate amount of distress. Appears to be well nourished, well developed. VITAL SIGNS: Blood pressure 122/78, pulse 81, respirations were 27, O2 saturation 93%, temperature 98. HEENT: Head: Atraumatic and normocephalic. Eyes: EOMs are intact. Sclerae anicteric and not pale. Throat: Oral mucosa appears to be moist. No oropharyngeal erythema. NECK: Supple. LUNGS: He did have crackles in the bases, appeared to be worse on the right lower lobe. He had some expiratory wheeze in the upper lobea He had equal diaphragmatic expansion. HEART: Heart sounds S1, S2. Regular rate and rhythm. I do not appreciate any murmurs, rubs, or gallops. ABDOMEN: Soft, flat, nontender. Bowel sounds are present. EXTREMITIES: Pulses were 2+ throughout. He did have pitting edema in the lower extremities. He had 5/5 strength throughout. NEUROLOGIC: He is awake, alert, oriented x3. Tongue is midline. Cabin Equipment Supervisor were equal. He had no gross focal deficits. SKIN: Grossly intact. DIAGNOSTIC STUDIES/LAB DATA: WBC 4.2, RBC 4.77, hemoglobin 13.3, hematocrit of 41, platelet count of 154. D-dimer less than 200. VBG reveals a pH of 7.24, pCO2 of 95. Sodium was 139, potassium was 4.4, chloride of 97, bicarb 43, BUN 16, creatinine 0.77, glucose 106. Calcium 9.1. Mag 1.9. Total bili 0.3, AST 16, ALT 21, alk phos 80. Troponin 0.01. CRP 11. BMP 57. Albumin 3.8. He had a chest x-ray obtained today, showed bibasilar airspace opacification, could be related to atelectasis and/or infiltrate. EKG is pending. Old medical records were reviewed. He did have an echo at the last visit on , which showed an EF of 55% to 60% and RV function was normal. ASSESSMENT AND PLAN: Mr. Savage is a 49-year-old male patient coming into the ED today with complaints of shortness of breath with a history of severe chronic obstructive pulmonary disease, on chronic oxygen therapy, who will be admitted under inpatient status for: 1. Chronic obstructive pulmonary disease exacerbation with acute respiratory failure. At this point, he will be placed on BiPAP. In addition to this, we will get an ABG 1 hour after initiating BiPAP. I will start him on nebulizers around- the-clock with p.r.n. albuterol. I have ordered Dulera. I have started him on 60 mg of IV Solu-Medrol every 8 hours. I have placed him on Rocephin along with azithromycin. We will panculture him. I have ordered a legionella and Strep pneumo antigens to the urine and also sent off blood cultures and a lactic acid. He did not follow up with Pulmonology previously. We will need to get this reestablished as he may need outpatient BiPAP initiation. 2. Lower extremity swelling. Etiology is unclear. It could be secondary to the Norvasc. I am going to repeat his echo to see what his RV function is doing and we will continue to monitor. I would not diurese him at this point. I think the x- ray findings again are consistent with pneumonia, probably viral in nature, which is exacerbating his chronic obstructive pulmonary disease. I would hold on Lasix at this point. 3. DVT prophylaxis. He is high risk. I have placed him on heparin subcu. 4. Hypertension. Continue with his amlodipine. 5. Code status. Full code. 6. Fluids, electrolytes and nutrition. He can have a heart-healthy diet. TIME SPENT: On the admission was 60 minutes, greater than half the time spent face- to-face with the patient obtaining my history and physical; other half time spent going over the plan of care with the patient and implementing plan of care. I discussed the plan of care with my attending, Dr. Daigle, she is in agreement. GERARDO DOLL NP [id number]/[facility] #: [id number] [facility]
[2019-07-14 21:59] LABS: Urine Appearance Clear; Urine Bilirubin Negative (Negative); Urine Blood Negative (Negative); Urine Color Yellow; Urine Glucose Negative (Negative); Urine Ketones Negative (Negative); Urine Nitrite Negative (Negative); Urine Protein Negative (Negative); Urine Specific Gravity 1.024 (1.010-1.030); Urine Urobilinogen Negative (Negative)
[2019-07-14 22:13] LABS: Activated Partial Thrombo Time 32.5 seconds (26.0-38.0); INR 1.03 (0.82-1.09)
[2019-07-14] MEDS: Heparin VIAL(*) 5000 UNITS/ML VIAL (FIVE THOUSAND) SUBCUT SCH (22:35)
[2019-07-14] MEDS: cefTRIAXone(*) 1 GM in NS 0.9% 50 ML* 50 ML IVPB SCH (22:35)
[2019-07-14] MEDS: Albuterol/Ipratropium NEB.SOL* Albuterol 2.5 MG/Ipratropium 0.5 MG 3 ML INH SCH (22:47)
[2019-07-15] MEDS: Albuterol/Ipratropium NEB.SOL* Albuterol 2.5 MG/Ipratropium 0.5 MG 3 ML INH SCH ×5 (03:02→20:40)
[2019-07-15] MEDS: methylPREDNISolone 125 MG* 2 ML VIAL IV SCH ×2 (04:07→12:12)
[2019-07-15 05:14] LABS: BUN/Creatinine Ratio 24.6 (8-20); Calcium 7.7 mg/dL (8.6-10.3); EGFR African American 157.3 (>60)
[2019-07-15] MEDS: Heparin VIAL(*) 5000 UNITS/ML VIAL (FIVE THOUSAND) SUBCUT SCH ×3 (05:23→22:48)
[2019-07-15 05:39] LABS: ABS Lymphocytes 0.4 10^3/ul (1.0-4.8); ABS Monocytes 0.1 10^3/ul (0-0.8); ABS Neutrophils 4.1 10^3/ul (1.5-7.7); Eosinophil % 0.1 %; Hematocrit 41 % (42-52); Hemoglobin 12.4 g/dL (14.0-18.0); Lymphocyte % 8.5 %; Mean Corpuscular HGB Conc 31 g/dL (31-36); Mean Corpuscular Hemoglobin 27 pg (27-31); Mean Corpuscular Volume 89 fL (80-94); Nucleated Red Blood Cells % 0.3; Red Blood Count 4.52 10^6 /uL (4.18-5.48); Red Cell Distribution Width 17 % (10-15); White Blood Count 4.5 10^3/uL (3.5-10.8)
[2019-07-15 06:21] LABS: Platelet Count Platelets clumped. 10^3/uL (150-450)
[2019-07-15] MEDS: Mometasone/Formoter 200/5 MDI INH SCH ×2 (07:43→20:40)
[2019-07-15] MEDS ORDERED: Pneumococcal *Vac Polyvalent 0.5 ML VIAL IM ONE (09:00)
[2019-07-15] MEDS ORDERED: Influenza VAC *QUAD* 2019-20* 0.5 ML SYRINGE IM ONE (09:00)
[2019-07-15] MEDS: amLODIPine TAB* 5 MG PO SCH (10:19)
[2019-07-15] MEDS ORDERED: Furosemide IV* 10 MG/ML 10 ML VIAL (100 MG) IV ONE (12:14)
--- NOTE | 2019-07-15 12:23 | PN ---
Date of Service: 07/15/19 Critical Care Services: On BIPAP through the night. Comfortable. Vital Signs: Temp Pulse Resp BP SpO2 FiO2 37.4 C 91 19 140/81 97 50 07/15/19 12:00 07/15/19 12:00 07/15/19 12:00 07/15/19 12:00 07/15/19 12:00 07/15 08:00 Physical Exam: Gen: NAD on BiPAP HEENT: NCAT, PERRL, BiPAP mask in place Lungs: coarse entry Cardiac: S1S2 regular Abdomen: soft, NT, obese, +BS Extremities: +2 edema Neuro: grossly intact Fluid Balance (Past 24 Hours): I= O= Net Intake & Output 07/13/19 07/14/19 07/15/19 07/16/19 06:59 06:59 06:59 06:59 Intake Total 557 Output Total 300 350 Balance 257 -350 Weight 120.9 kg Intake: IV Fluids 502 NS (0.9%) 502 IVPB 55 NS (0.9%) 55 Output: Urine 300 350 Labs: Laboratory Results - last 24 hr 07/14/19 07/14/19 07/14/19 15:09 15:09 15:09 WBC 4.2 RBC 4.77 Hgb 13.3 L Hct 41 L MCV 86 MCH 28 MCHC 32 RDW 16 H Plt Count 154 MPV 8.0 Neut % (Auto) 64.8 Lymph % (Auto) 21.0 [place] % (Auto) 11.6 Eos % (Auto) 2.3 Baso % (Auto) 0.3 Absolute Neuts (auto) 2.7 Absolute Lymphs (auto) 0.9 L Absolute Monos (auto) 0.5 Absolute Eos (auto) 0.1 Absolute Basos (auto) 0.0 Absolute Nucleated RBC 0.0 Nucleated RBC % 0.0 INR (Anticoag Therapy) APTT D-Dimer, Quantitative < 200 Patient Temperature ABG pH ABG pH (Temp Correct) ABG pCO2 ABG pCO2 (Temp Corrct ABG pO2 ABG pO2 (Temp Correct ABG HCO3 ABG O2 Saturation ABG Base Excess VBG pH VBG pCO2 VBG pO2 VBG HCO3 VBG O2 Saturation VBG Base Excess Respiration Rate O2 Delivery Device Ventilator Type Vent Mode FiO2 Inspiratory Time PEEP Pressure Support Pressure Control EPAP IPAP BiPAP Sodium 139 Potassium 4.4 Chloride 97 L Carbon Dioxide 43 H* Anion Gap Not Reportable BUN 16 Creatinine 0.77 Est GFR ( Amer) 129.4 Est GFR (Non-Af Amer) 106.9 BUN/Creatinine Ratio 20.8 H Glucose 106 H Lactic Acid Calcium 9.1 Magnesium 1.9 Total Bilirubin 0.30 AST 16 ALT 21 Alkaline Phosphatase 80 Troponin I 0.01 C-Reactive Protein 11.10 H B-Natriuretic Peptide Total Protein 7.0 Albumin 3.8 Globulin 3.2 Albumin/Globulin Ratio 1.2 Urine Color Urine Appearance Urine pH Ur Specific [place] Urine Protein Urine Ketones Urine Blood Urine Nitrate Urine Bilirubin Urine Urobilinogen Ur Leukocyte Esterase Urine Glucose Influenza A (Rapid) Influenza B (Rapid) 07/14/19 07/14/19 07/14/19 17:53 17:53 17:58 WBC RBC Hgb Hct MCV MCH MCHC RDW Plt Count MPV Neut % (Auto) Lymph % (Auto) [place] % (Auto) Eos % (Auto) Baso % (Auto) Absolute Neuts (auto) Absolute Lymphs (auto) Absolute Monos (auto) Absolute Eos (auto) Absolute Basos (auto) Absolute Nucleated RBC Nucleated RBC % INR (Anticoag Therapy) APTT D-Dimer, Quantitative Patient Temperature ABG pH ABG pH (Temp Correct) ABG pCO2 ABG pCO2 (Temp Corrct ABG pO2 ABG pO2 (Temp Correct ABG HCO3 ABG O2 Saturation ABG Base Excess VBG pH 7.27 L VBG pCO2 95 H VBG pO2 < 38.0 VBG HCO3 33.6 H VBG O2 Saturation 62.6 L VBG Base Excess 12.4 H Respiration Rate O2 Delivery Device Ventilator Type Vent Mode FiO2 Inspiratory Time PEEP Pressure Support Pressure Control EPAP IPAP BiPAP Sodium Potassium Chloride Carbon Dioxide Anion Gap BUN Creatinine Est GFR ( Amer) Est GFR (Non-Af Amer) BUN/Creatinine Ratio Glucose Lactic Acid Calcium Magnesium Total Bilirubin AST ALT Alkaline Phosphatase Troponin I C-Reactive Protein B-Natriuretic Peptide 57 Total Protein Albumin Globulin Albumin/Globulin Ratio Urine Color Urine Appearance Urine pH Ur Specific [place] Urine Protein Urine Ketones Urine Blood Urine Nitrate Urine Bilirubin Urine Urobilinogen Ur Leukocyte Esterase Urine Glucose Influenza A (Rapid) Negative Influenza B (Rapid) Negative 07/14/19 07/14/19 07/14/19 20:57 21:12 21:35 WBC RBC Hgb Hct MCV MCH MCHC RDW Plt Count MPV Neut % (Auto) Lymph % (Auto) [place] % (Auto) Eos % (Auto) Baso % (Auto) Absolute Neuts (auto) Absolute Lymphs (auto) Absolute Monos (auto) Absolute Eos (auto) Absolute Basos (auto) Absolute Nucleated RBC Nucleated RBC % INR (Anticoag Therapy) 1.03 APTT 32.5 D-Dimer, Quantitative Patient Temperature Not Reportable ABG pH 7.24 L ABG pH (Temp Correct) Not Reportable ABG pCO2 99 H* ABG pCO2 (Temp Corrct Not Reportable ABG pO2 178 H ABG pO2 (Temp Correct Not Reportable ABG HCO3 33.2 H ABG O2 Saturation 100.0 H ABG Base Excess 10.7 H VBG pH VBG pCO2 VBG pO2 VBG HCO3 VBG O2 Saturation VBG Base Excess Respiration Rate 12 O2 Delivery Device Bipap Ventilator Type Not Reportable Vent Mode Bipap FiO2 75 Inspiratory Time Not Reportable PEEP Not Reportable Pressure Support Not Reportable Pressure Control Not Reportable EPAP 8 IPAP 24 BiPAP Not Reportable Sodium Potassium Chloride Carbon Dioxide Anion Gap BUN Creatinine Est GFR ( Amer) Est GFR (Non-Af Amer) BUN/Creatinine Ratio Glucose Lactic Acid 0.4 L Calcium Magnesium Total Bilirubin AST ALT Alkaline Phosphatase Troponin I C-Reactive Protein B-Natriuretic Peptide Total Protein Albumin Globulin Albumin/Globulin Ratio Urine Color Urine Appearance Urine pH Ur Specific [place] Urine Protein Urine Ketones Urine Blood Urine Nitrate Urine Bilirubin Urine Urobilinogen Ur Leukocyte Esterase Urine Glucose Influenza A (Rapid) Influenza B (Rapid) 07/14/19 07/14/19 07/15/19 21:46 23:00 04:49 WBC RBC Hgb Hct MCV MCH MCHC RDW Plt Count MPV Neut % (Auto) Lymph % (Auto) [place] % (Auto) Eos % (Auto) Baso % (Auto) Absolute Neuts (auto) Absolute Lymphs (auto) Absolute Monos (auto) Absolute Eos (auto) Absolute Basos (auto) Absolute Nucleated RBC Nucleated RBC % INR (Anticoag Therapy) APTT D-Dimer, Quantitative Patient Temperature Not Reportable ABG pH 7.23 L ABG pH (Temp Correct) Not Reportable ABG pCO2 100 H* ABG pCO2 (Temp Corrct Not Reportable ABG pO2 130 H ABG pO2 (Temp Correct Not Reportable ABG HCO3 32.8 H ABG O2 Saturation 99.6 H ABG Base Excess 10.1 H VBG pH VBG pCO2 VBG pO2 VBG HCO3 VBG O2 Saturation VBG Base Excess Respiration Rate 12 O2 Delivery Device bipap Ventilator Type Not Reportable Vent Mode Not Reportable FiO2 Not Reportable Inspiratory Time Not Reportable PEEP Not Reportable Pressure Support Not Reportable Pressure Control Not Reportable EPAP 8 IPAP 24 BiPAP Not Reportable Sodium 138 Potassium 5.0 Chloride 102 Carbon Dioxide 34 H Anion Gap 2 BUN 16 Creatinine 0.65 L Est GFR ( Amer) 157.3 Est GFR (Non-Af Amer) 130.0 BUN/Creatinine Ratio 24.6 H Glucose 121 H Lactic Acid Calcium 7.7 L Magnesium Total Bilirubin AST ALT Alkaline Phosphatase Troponin I C-Reactive Protein B-Natriuretic Peptide Total Protein Albumin Globulin Albumin/Globulin Ratio Urine Color Yellow Urine Appearance Clear Urine pH 5.0 Ur Specific [place] 1.024 Urine Protein Negative Urine Ketones Negative Urine Blood Negative Urine Nitrate Negative Urine Bilirubin Negative Urine Urobilinogen Negative Ur Leukocyte Esterase Negative Urine Glucose Negative Influenza A (Rapid) Influenza B (Rapid) 07/15/19 07/15/19 04:49 06:25 WBC 4.5 RBC 4.52 Hgb 12.4 L Hct 41 L MCV 89 MCH 27 MCHC 31 RDW 17 H Plt Count Platelets clumped. H MPV TNP Neut % (Auto) 89.9 Lymph % (Auto) 8.5 [place] % (Auto) 1.4 Eos % (Auto) 0.1 Baso % (Auto) 0.1 Absolute Neuts (auto) 4.1 Absolute Lymphs (auto) 0.4 L Absolute Monos (auto) 0.1 Absolute Eos (auto) 0.0 Absolute Basos (auto) 0.0 Absolute Nucleated RBC 0.0 Nucleated RBC % 0.3 INR (Anticoag Therapy) APTT D-Dimer, Quantitative Patient Temperature Not Reportable ABG pH 7.27 L ABG pH (Temp Correct) Not Reportable ABG pCO2 89 H* ABG pCO2 (Temp Corrct Not Reportable ABG pO2 105 H ABG pO2 (Temp Correct Not Reportable ABG HCO3 32.9 H ABG O2 Saturation 98.9 H ABG Base Excess 10.2 H VBG pH VBG pCO2 VBG pO2 VBG HCO3 VBG O2 Saturation VBG Base Excess Respiration Rate Not Reportable O2 Delivery Device Bipap Ventilator Type Not Reportable Vent Mode Not Reportable FiO2 60 Inspiratory Time Not Reportable PEEP Not Reportable Pressure Support Not Reportable Pressure Control Not Reportable EPAP 8 IPAP 24 BiPAP Not Reportable Sodium Potassium Chloride Carbon Dioxide Anion Gap BUN Creatinine Est GFR ( Amer) Est GFR (Non-Af Amer) BUN/Creatinine Ratio Glucose Lactic Acid Calcium Magnesium Total Bilirubin AST ALT Alkaline Phosphatase Troponin I C-Reactive Protein B-Natriuretic Peptide Total Protein Albumin Globulin Albumin/Globulin Ratio Urine Color Urine Appearance Urine pH Ur Specific [place] Urine Protein Urine Ketones Urine Blood Urine Nitrate Urine Bilirubin Urine Urobilinogen Ur Leukocyte Esterase Urine Glucose Influenza A (Rapid) Influenza B (Rapid) Studies: CXR with faint bibasilar opacities Nutrition: PO when off BiPAP Impression: Acute on chronic hypoxic and hypercapnic respiratory failure Plan: Acute on chronic hypoxic and hypercapnic respiratory failure - ABG reveals significant chronicity, baseline PCO2 likely around 60. Will need assessment of his RV, exam and presentation suggest Cor Pulmonale. His CXR shows what could be some basilar water, will give a single dose of lasix. He is being managed for COPD exacerbation, possibly secondary to pneumonia or bacterial bronchitis though cough not prominent here. Flu is negative. Will de-esclate the steroids some and see if the lasix and resultant diuresis improves his respiratory status as well as his HTN. Continue Abx for now. Critical Care Time: 35 minutes
--- NOTE | 2019-07-15 14:03 | ECHO ---
*[facility]* [place] [address] Fax #: [phone] Transthoracic Echocardiogram Patient: George Savage : 1970 Study Date: 07/15/2019 Age: 49 Gender: M HR: 78 bpm Height: 66 in /167.6 cm BSA: 2.31 m^2 Weight: 279.4 lb /127 kg BMI: 45.2 kg/m^2 *Associate Professor Of Chemistry: * Jasmine Osborne [facility] *Referring Physician: * Gerardo DollReading Physician: * Quinn Camacho MD Indications: SOB. History: Murmur. Chronic obstructive pulmonary disease. Risk factors: Current tobacco use. Conclusions Summary: - Impressions: The study is unchanged since the study of August 2018. - Left ventricle: The cavity size is normal. Wall thickness is mildly increased. Systolic function is normal. The estimated ejection fraction is 60-65%. Doppler parameters are consistent with abnormal left ventricular relaxation (grade 1 diastolic dysfunction). - Right ventricle: The cavity size is mildly dilated. Wall thickness is mildly increased. - Right atrium: The atrium is mildly dilated. - Aortic root: The aortic root is moderately dilated. - Ascending aorta: The ascending aorta is upper normal in size. - Inferior vena cava: The vessel is normal in size. There is (< 50%) respiratory change in the IVC dimension. Study data: Transthoracic echocardiogram. Procedure: Transthoracic echocardiography was performed. Image quality was fair. The study was technically limited due to Patient on Bipap. Complete 2D, spectral Doppler, and color flow Doppler. Location: ICU Patient status: Inpatient. Patient room number: 4. The previous study was not available, so comparison is made to the report of August 2018. Rhythm: Normal sinus rhythm. Findings Left ventricle: The cavity size is normal. Wall thickness is mildly increased. Systolic function is normal. The estimated ejection fraction is 60-65%. Wall motion is normal; there are no regional wall motion abnormalities. Doppler parameters are consistent with abnormal left ventricular relaxation (grade 1 diastolic dysfunction). Right ventricle: The cavity size is mildly dilated. Wall thickness is mildly increased. Systolic function is normal. Left atrium: The atrium is normal in size. Right atrium: The atrium is mildly dilated. Mitral valve: The leaflets are normal thickness. There is no evidence of stenosis. There is no significant regurgitation. Aortic valve: The annulus is mildly calcified. The valve is trileaflet. The leaflets are mildly thickened. There is no evidence of stenosis. There is no significant regurgitation. Tricuspid valve: The leaflets are normal thickness. There is no evidence of stenosis. There is no significant regurgitation. Pulmonic valve: The leaflets are normal thickness. There is no evidence of stenosis. There is no significant regurgitation. Aorta: Aortic root: The aortic root is moderately dilated. Ascending aorta: The ascending aorta is upper normal in size. Aortic arch: The aortic arch is poorly visualized. Pericardium: There is no significant pericardial effusion. Pulmonary arteries: Systolic pressure can not be accurately estimated. Systemic veins: Inferior vena cava: The vessel is normal in size. There is (< 50%) respiratory change in the IVC dimension. Measurements Left ventricle Value Ref Right atrium continued Value Ref URI, LAX 4.7 cm 4.2 - 5.8 ML dim, ES, A4C (H) 5.2 cm 2.6 - 4.4 ESD, LAX 3.5 cm 2.5 - 4.0 Estimated RAP 8 mm Hg --------- FS, LAX 27 % 25 - 43 PW, ED, LAX (H) 1.4 cm 0.6 - 1.0 Aortic valve Value Ref E', lat marquise, TDI (L) 9.2 cm/sec >=10.0 Marquise diam, ED 2.0 cm - -------- E/e', lat marquise, 10 Peak v, S 1.65 m/sec ---- ----- TDI VTI, S 37.4 cm --------- E', med marquise, TDI 7.4 cm/sec >=7.0 Mean grad, S 6.0 mm Hg - -------- E/e', med marquise, 12 Peak grad, S 11.0 mm Hg ---- ----- TDI LVOT/AV, VTI ratio 0.61 --------- E', avg, TDI 8.3 cm/sec ENEDINA, VTI 1.93 cm^2 ---- ----- E/e', avg, TDI 11 <=14 ENEDINA, Vmax 1.90 cm^2 - -------- LVOT Value Ref Mitral valve Value Ref Diam, S 2.00 cm Peak E 0.89 m/sec --------- Peak shanell, S 1 m/sec Peak A 0.83 m/sec --------- VTI, S 23.0 cm Decel time 153 ms --------- Peak grad, S 4 mm Hg Peak grad, D 3.1 mm Hg --------- Mean grad, S 2 mm Hg Peak E/A ratio 1.1 --------- SV 72 ml Pulmonic valve Value Ref Ventricular septum Value Ref Peak v, S 0.6 m/sec --------- IVS, ED (H) 1.3 cm 0.6 - 1.0 Peak grad, S 1.0 mm Hg --------- Right ventricle Value Ref Aortic root Value Ref AW thickness, ED (H) 0.7 cm 0.1 - 0.5 Root diam 4.2 cm <4.4 URI, LAX 3.3 cm Root max diam, ED 4.2 cm <4.4 URI minor ax, (H) 3.7 cm 1.9 - 3.5 A4C mid Ascending aorta Value Ref AAo AP diam, S 3.5 cm --------- Left atrium Value Ref AAo AP diam/bsa, S 1.5 cm/m^2 --------- AP dim, ES 4.00 cm 3.00 - 4.00 Inferior vena cava Value Ref ML dim, A4C 4.8 cm Diam 2.1 cm --------- SI dim, A4C 5.8 cm Vol/bsa, ES, A/L 27 ml/m^2 16 - 34 Right atrium Value Ref SI dim, ES 5.3 cm 3.4 - 5.3 Legend: (L) and (H) rufino values outside specified reference range. Prepared and electronically signed by Quinn Camacho MD 07/15/2019 14:02
[2019-07-15] MEDS: Nicotine PATCH 21 MG/24 HR* PATCH TRANSDERM SCH (16:42)
[2019-07-15] MEDS ORDERED: diPHENhydraMINE PO* 25 MG PO ONE (20:21)
[2019-07-15] MEDS: Azithromycin 500 mg/250 ml NS 500 MG/250 ML BAG IVPB SCH (20:49)
[2019-07-15] MEDS: cefTRIAXone(*) 1 GM in NS 0.9% 50 ML* 50 ML IVPB SCH (22:45)
[2019-07-16] MEDS: Albuterol/Ipratropium NEB.SOL* Albuterol 2.5 MG/Ipratropium 0.5 MG 3 ML INH SCH ×4 (00:43→20:03)
[2019-07-16] MEDS: Heparin VIAL(*) 5000 UNITS/ML VIAL (FIVE THOUSAND) SUBCUT SCH ×3 (05:50→22:45)
[2019-07-16] MEDS: Mometasone/Formoter 200/5 MDI INH SCH ×2 (07:17→20:02)
[2019-07-16 08:13] LABS: Calcium 8.5 mg/dL (8.6-10.3); EGFR African American 133.4 (>60); EGFR Non-African American 110.2 (>60); Magnesium 1.8 mg/dL (1.9-2.7); Phosphorus 2.9 mg/dL (2.5-5.0)
[2019-07-16 08:25] LABS: Potassium 4.6 mmol/L (3.5-5.0)
[2019-07-16] MEDS: Nicotine PATCH 21 MG/24 HR* PATCH TRANSDERM SCH (08:29)
[2019-07-16] MEDS: amLODIPine TAB* 5 MG PO SCH (08:29)
[2019-07-16 08:38] LABS: ABS Lymphocytes 1.2 10^3/ul (1.0-4.8); ABS Monocytes 0.7 10^3/ul (0-0.8); Hematocrit 38 % (42-52); Hemoglobin 12.1 g/dL (14.0-18.0); Lymphocyte % 11.8 %; Mean Corpuscular HGB Conc 32 g/dL (31-36); Mean Corpuscular Hemoglobin 27 pg (27-31); Mean Corpuscular Volume 86 fL (80-94); Mean Platelet Volume 8.8 fL (7.4-10.4); Platelet Count 146 10^3/uL (150-450); Red Blood Count 4.44 10^6 /uL (4.18-5.48); Red Cell Distribution Width 17 % (10-15); White Blood Count 9.9 10^3/uL (3.5-10.8)
[2019-07-16] MEDS ORDERED: methylPREDNISolone 125 MG* 2 ML VIAL IV SCH (09:00)
--- NOTE | 2019-07-16 10:55 | PN ---
Subjective Date of Service: 07/16/19 Interval History: No new c/o. Little cough. Objective Active Medications: Acetaminophen (Tylenol Tab*) 650 mg PO Q4H PRN PRN Reason: PAIN - MILD Acetazolamide (Diamox Tab*) 250 mg PO TID [facility] Albuterol (Ventolin 2.5 Mg/3 Ml Neb.Lisa*) 2.5 mg INH Q2H PRN PRN Reason: SOB/WHEEZING Albuterol/Ipratropium (Duoneb (Albuterol 2.5 Mg/Ipratropium 0.5 Mg)) 1 neb INH [id number] AWAKE [facility] Last Admin: 07/16/19 07:17 Dose: 1 neb Amlodipine Besylate (Norvasc Tab*) 5 mg PO DAILY [facility] Last Admin: 07/16/19 08:29 Dose: 5 mg Heparin Sodium (Porcine) (Heparin Vial(*)) 5,000 units SUBCUT Q8HR [facility] Last Admin: 07/16/19 05:50 Dose: 5,000 units Azithromycin (Zithromax 500 Mg/250 Ml) 500 mg in 250 mls @ 250 mls/hr IVPB Q24H [facility] Last Admin: 07/15/19 20:49 Dose: 250 mls/hr Ceftriaxone Sodium 1 gm/ (Sodium Chloride) 50 mls @ 100 mls/hr IVPB Q24H [facility] Last Admin: 07/15/19 22:45 Dose: 100 mls/hr Magnesium Oxide (Magox 400 Tab*) 400 mg PO DAILY [facility] Mometasone Furoate/Formoterol Fumar (Dulera 200/5 Mdi*) 2 puff INH BID [facility] Last Admin: 07/16/19 07:17 Dose: 2 puff Nicotine (Nicotine Patch 21 Mg/24 Hr*) 1 patch TRANSDERM DAILY@0800 [facility] Last Admin: 07/16/19 08:29 Dose: 1 patch Ondansetron HCl (Zofran Inj*) 4 mg IV Q6H PRN PRN Reason: NAUSEA Prednisone (Deltasone 10 Mg Tab) 50 mg PO DAILY [facility] Vital Signs - 8 hr 07/16/19 07/16/19 07/16/19 03:15 07:15 07:20 Temperature 97.7 F 97.8 F Pulse Rate 90 88 7 Respiratory 18 20 17 Rate Blood Pressure 149/68 117/54 (mmHg) O2 Sat by Pulse 100 92 96 Oximetry 07/16/19 08:00 Temperature Pulse Rate Respiratory 16 Rate Blood Pressure (mmHg) O2 Sat by Pulse Oximetry Oxygen Devices in Use Now: Nasal Cannula Appearance: Alert, in a chair. In good spirits. Looks comfortable. No cough during my visit. Eyes: No Scleral Icterus Respiratory: Symmetrical Chest Expansion and Respiratory Effort, Clear to Auscultation, Clear to Percussion Cardiovascular: NL Sounds; No Murmurs; No JVD, RRR, No Edema, - Extremities: No Clubbing, Cyanosis, - - 2+ edema BL Skin: No Rash or Ulcers, No Nodules or Sclerosis Neurological: Alert and Oriented x 3, NL Sensation Result Diagrams: 07/16/19 07:36 07/16/19 07:36 Additional Lab and Data: Lab Results 07/14/19 07/14/19 Range/Units 15:09 15:09 WBC 4.2 (3.5-10.8) 10^3/uL RBC 4.77 (4.18-5.48) 10^6 /uL Hgb 13.3 L (14.0-18.0) g/dL Hct 41 L (42-52) % MCV 86 (80-94) fL MCH 28 (27-31) pg MCHC 32 (31-36) g/dL RDW 16 H (10-15) % Plt Count 154 (150-450) 10^3/uL MPV 8.0 (7.4-10.4) fL Neut % (Auto) 64.8 % Lymph % (Auto) 21.0 % [place] % (Auto) 11.6 % Eos % (Auto) 2.3 % Baso % (Auto) 0.3 % Absolute Neuts (auto) 2.7 (1.5-7.7) 10^3/ul Absolute Lymphs (auto) 0.9 L (1.0-4.8) 10^3/ul Absolute Monos (auto) 0.5 (0-0.8) 10^3/ul Absolute Eos (auto) 0.1 (0-0.6) 10^3/ul Absolute Basos (auto) 0.0 (0-0.2) 10^3/ul Absolute Nucleated RBC 0.0 10^3/ul Nucleated RBC % 0.0 Sodium 139 (135-145) mmol/L Potassium 4.4 (3.5-5.0) mmol/L Chloride 97 L (101-111) mmol/L Carbon Dioxide 43 H* (22-32) mmol/L Anion Gap Not Reportable BUN 16 (6-24) mg/dL Creatinine 0.77 (0.67-1.17) mg/dL Est GFR ( Amer) 129.4 (>60) Est GFR (Non-Af Amer) 106.9 (>60) BUN/Creatinine Ratio 20.8 H (8-20) Glucose 106 H (70-100) mg/dL Calcium 9.1 (8.6-10.3) mg/dL Magnesium 1.9 (1.9-2.7) mg/dL Total Bilirubin 0.30 (0.2-1.0) mg/dL AST 16 (13-39) U/L ALT 21 (7-52) U/L Alkaline Phosphatase 80 (34-104) U/L Troponin I 0.01 (<0.03) ng/mL C-Reactive Protein 11.10 H (<8.01) mg/L Total Protein 7.0 (6.4-8.9) g/dL Albumin 3.8 (3.2-5.2) g/dL Globulin 3.2 (2-4) g/dL Albumin/Globulin Ratio 1.2 (1-3) Microbiology and Other Data: Microbiology 07/14/19 21:35 Aerobic Blood Culture - Preliminary Blood Venous No Growth Day 1 Anaerobic Blood Culture - Preliminary No Growth Day 1 07/14/19 21:12 Aerobic Blood Culture - Preliminary Blood Venous No Growth Day 1 Anaerobic Blood Culture - Preliminary No Growth Day 1 07/14/19 22:00 Legionella Urinary Antigen - Final Urine Negative Legionella Antigen Streptococcus pneumoniae Ag Screen - Final Negative S. pneumo Antigen 07/14/19 21:22 Nasal Screen MRSA (PCR) - Final Nasal Mrsa Not Detected Assess/Plan/Problems-Billing Assessment: - Patient Problems (1) Hypercapnic respiratory failure Current Visit: Yes Status: Acute Code(s): J96.92 - RESPIRATORY FAILURE, UNSPECIFIED WITH HYPERCAPNIA SNOMED Code(s): 256224806 Comment: Continue azith, ceftr. Prednsione taper. Bronchodilators. Needs home NIPPV. Add acetazolimide as CO2 up to 40. BMP and ABG's 07/17. (2) Tobacco abuse Current Visit: No Status: Acute Code(s): Z72.0 - TOBACCO USE SNOMED Code(s ): 303520472 Comment: nicotine patch Pt advised top quit smoking and avoid second hand smoke. (3) Morbid obesity Current Visit: Yes Status: Acute Code(s): E66.01 - MORBID (SEVERE) OBESITY DUE TO EXCESS CALORIES SNOMED Code(s): 589764141 Comment: BMI 43.0
[2019-07-16] MEDS: acetaZOLAMIDE TAB* 250 MG PO SCH ×3 (11:21→22:42)
[2019-07-16] MEDS: Azithromycin 500 mg/250 ml NS 500 MG/250 ML BAG IVPB SCH (23:54)
[2019-07-17] MEDS ORDERED: diPHENhydraMINE PO* 25 MG PO ONE (01:00)
[2019-07-17] MEDS: Albuterol/Ipratropium NEB.SOL* Albuterol 2.5 MG/Ipratropium 0.5 MG 3 ML INH SCH ×4 (01:17→19:46)
[2019-07-17] MEDS: cefTRIAXone(*) 1 GM in NS 0.9% 50 ML* 50 ML IVPB SCH (02:30)
[2019-07-17] MEDS: Azithromycin 500 mg/250 ml NS 500 MG/250 ML BAG IVPB SCH (02:30)
[2019-07-17] MEDS: Heparin VIAL(*) 5000 UNITS/ML VIAL (FIVE THOUSAND) SUBCUT SCH ×3 (05:43→20:22)
[2019-07-17] MEDS: Mometasone/Formoter 200/5 MDI INH SCH ×2 (08:10→19:46)
[2019-07-17] MEDS: Nicotine PATCH 21 MG/24 HR* PATCH TRANSDERM SCH (08:38)
[2019-07-17] MEDS: Azithromycin TAB* 250 MG PO SCH (08:39)
[2019-07-17] MEDS: amLODIPine TAB* 5 MG PO SCH (08:39)
[2019-07-17] MEDS: Cefdinir cap* 300 MG CAP PO SCH ×2 (08:39→20:22)
[2019-07-17] MEDS: acetaZOLAMIDE TAB* 250 MG PO SCH ×3 (08:39→20:22)
[2019-07-17] MEDS ORDERED: Torsemide TAB* 20 MG PO ONE (10:46)
--- NOTE | 2019-07-17 10:51 | PN ---
Subjective Date of Service: 07/17/19 Interval History: No new c/o. Slept with BIPAP. No cough. Denies SOB. Objective Active Medications: Acetaminophen (Tylenol Tab*) 650 mg PO Q4H PRN PRN Reason: PAIN - MILD Acetazolamide (Diamox Tab*) 250 mg PO TID [facility] Last Admin: 07/17/19 08:39 Dose: 250 mg Albuterol (Ventolin 2.5 Mg/3 Ml Neb.Lisa*) 2.5 mg INH Q2H PRN PRN Reason: SOB/WHEEZING Albuterol/Ipratropium (Duoneb (Albuterol 2.5 Mg/Ipratropium 0.5 Mg)) 1 neb INH [id number] AWAKE [facility] Last Admin: 07/17/19 08:13 Dose: 1 neb Amlodipine Besylate (Norvasc Tab*) 5 mg PO DAILY [facility] Last Admin: 07/17/19 08:39 Dose: 5 mg Azithromycin (Zithromax Tab*) 500 mg PO DAILY [facility] Last Admin: 07/17/19 08:39 Dose: 500 mg Cefdinir (Cefdinir Cap*) 300 mg PO BID [facility] Last Admin: 07/17/19 08:39 Dose: 300 mg Heparin Sodium (Porcine) (Heparin Vial(*)) 5,000 units SUBCUT Q8HR [facility] Last Admin: 07/17/19 05:43 Dose: 5,000 units Magnesium Oxide (Magox 400 Tab*) 400 mg PO DAILY@1200 [facility] Mometasone Furoate/Formoterol Fumar (Dulera 200/5 Mdi*) 2 puff INH BID [facility] Last Admin: 07/17/19 08:10 Dose: 2 puff Nicotine (Nicotine Patch 21 Mg/24 Hr*) 1 patch TRANSDERM DAILY@0800 [facility] Last Admin: 07/17/19 08:38 Dose: 1 patch Ondansetron HCl (Zofran Inj*) 4 mg IV Q6H PRN PRN Reason: NAUSEA Prednisone (Deltasone 50 Mg Tab) 50 mg PO DAILY [facility] Last Admin: 07/17/19 08:39 Dose: 50 mg Vital Signs - 8 hr 07/17/19 07/17/19 07/17/19 03:13 04:51 07:15 Temperature 98.1 F 97.6 F Pulse Rate 90 81 Respiratory 20 22 22 Rate Blood Pressure 129/73 121/60 (mmHg) O2 Sat by Pulse 95 94 Oximetry 07/17/19 08:00 Temperature Pulse Rate Respiratory 20 Rate Blood Pressure (mmHg) O2 Sat by Pulse Oximetry Oxygen Devices in Use Now: Nasal Cannula Appearance: Alert, sitting on the edge of his bed. In good spirits. Looks comfortable. No cough during my visit. Eyes: No Scleral Icterus Respiratory: Symmetrical Chest Expansion and Respiratory Effort, Clear to Auscultation, Clear to Percussion Cardiovascular: NL Sounds; No Murmurs; No JVD, RRR, No Edema, - Extremities: No Clubbing, Cyanosis, - - 1-2+ edema UE's and LE's Skin: No Rash or Ulcers, No Nodules or Sclerosis, - Neurological: Alert and Oriented x 3, NL Sensation Result Diagrams: 07/16/19 07:36 07/16/19 07:36 Additional Lab and Data: Lab Results 07/14/19 07/14/19 Range/Units 15:09 15:09 WBC 4.2 (3.5-10.8) 10^3/uL RBC 4.77 (4.18-5.48) 10^6 /uL Hgb 13.3 L (14.0-18.0) g/dL Hct 41 L (42-52) % MCV 86 (80-94) fL MCH 28 (27-31) pg MCHC 32 (31-36) g/dL RDW 16 H (10-15) % Plt Count 154 (150-450) 10^3/uL MPV 8.0 (7.4-10.4) fL Neut % (Auto) 64.8 % Lymph % (Auto) 21.0 % [place] % (Auto) 11.6 % Eos % (Auto) 2.3 % Baso % (Auto) 0.3 % Absolute Neuts (auto) 2.7 (1.5-7.7) 10^3/ul Absolute Lymphs (auto) 0.9 L (1.0-4.8) 10^3/ul Absolute Monos (auto) 0.5 (0-0.8) 10^3/ul Absolute Eos (auto) 0.1 (0-0.6) 10^3/ul Absolute Basos (auto) 0.0 (0-0.2) 10^3/ul Absolute Nucleated RBC 0.0 10^3/ul Nucleated RBC % 0.0 Sodium 139 (135-145) mmol/L Potassium 4.4 (3.5-5.0) mmol/L Chloride 97 L (101-111) mmol/L Carbon Dioxide 43 H* (22-32) mmol/L Anion Gap Not Reportable BUN 16 (6-24) mg/dL Creatinine 0.77 (0.67-1.17) mg/dL Est GFR ( Amer) 129.4 (>60) Est GFR (Non-Af Amer) 106.9 (>60) BUN/Creatinine Ratio 20.8 H (8-20) Glucose 106 H (70-100) mg/dL Calcium 9.1 (8.6-10.3) mg/dL Magnesium 1.9 (1.9-2.7) mg/dL Total Bilirubin 0.30 (0.2-1.0) mg/dL AST 16 (13-39) U/L ALT 21 (7-52) U/L Alkaline Phosphatase 80 (34-104) U/L Troponin I 0.01 (<0.03) ng/mL C-Reactive Protein 11.10 H (<8.01) mg/L Total Protein 7.0 (6.4-8.9) g/dL Albumin 3.8 (3.2-5.2) g/dL Globulin 3.2 (2-4) g/dL Albumin/Globulin Ratio 1.2 (1-3) Microbiology and Other Data: Microbiology 07/14/19 21:35 Aerobic Blood Culture - Preliminary Blood Venous No Growth Day 1 Anaerobic Blood Culture - Preliminary No Growth Day 1 07/14/19 21:12 Aerobic Blood Culture - Preliminary Blood Venous No Growth Day 1 Anaerobic Blood Culture - Preliminary No Growth Day 1 07/14/19 22:00 Legionella Urinary Antigen - Final Urine Negative Legionella Antigen Streptococcus pneumoniae Ag Screen - Final Negative S. pneumo Antigen 07/14/19 21:22 Nasal Screen MRSA (PCR) - Final Nasal Mrsa Not Detected Assess/Plan/Problems-Billing Assessment: - Patient Problems (1) Hypercapnic respiratory failure Current Visit: Yes Status: Acute Code(s): J96.92 - RESPIRATORY FAILURE, UNSPECIFIED WITH HYPERCAPNIA SNOMED Code(s): 640147614 Comment: Continue azith, ceftr. Prednsione taper. Bronchodilators. Needs home NIPPV. Added acetazolimide on 07/16 as CO2 up to 40. BMP could not be drawn. Midline requested for IV access and labs. ABG's failed. Will try to diurese orally with one dose torsemide 40 mg on 07/17 and get ABG's 07/18. Potassium ordered tid. If he can't have his electroytes monitored I would stop his acetazolamide and potassium. (2) Tobacco abuse Current Visit: No Status: Acute Code(s): Z72.0 - TOBACCO USE SNOMED Code(s ): 915335561 Comment: nicotine patch Pt advised top quit smoking and avoid second hand smoke. (3) Morbid obesity Current Visit: Yes Status: Acute Code(s): E66.01 - MORBID (SEVERE) OBESITY DUE TO EXCESS CALORIES SNOMED Code(s): 315445004 Comment: BMI 43.0
[2019-07-17] MEDS: Potassium Chlor TAB* 10 MEQ TAB.ER PO SCH ×3 (11:29→20:22)
[2019-07-17] MEDS: Magnesium Oxide TAB* 400 MG PO SCH (11:29)
[2019-07-17 14:22] LABS: ABS Lymphocytes 0.5 10^3/ul (1.0-4.8); ABS Monocytes 0.1 10^3/ul (0-0.8); ABS Neutrophils 5.9 10^3/ul (1.5-7.7); Hematocrit 39 % (42-52); Hemoglobin 12.4 g/dL (14.0-18.0); Mean Corpuscular HGB Conc 31 g/dL (31-36); Mean Corpuscular Hemoglobin 27 pg (27-31); Mean Corpuscular Volume 87 fL (80-94); Mean Platelet Volume 8.1 fL (7.4-10.4); Platelet Count 155 10^3/uL (150-450); Red Blood Count 4.54 10^6 /uL (4.18-5.48); Red Cell Distribution Width 17 % (10-15); White Blood Count 6.6 10^3/uL (3.5-10.8)
[2019-07-17 14:44] LABS: Calcium 9.2 mg/dL (8.6-10.3); Potassium 4.5 mmol/L (3.5-5.0)
[2019-07-17 14:49] LABS: BUN/Creatinine Ratio 22.2 (8-20); EGFR African American 108.1 (>60); EGFR Non-African American 89.3 (>60)
[2019-07-18] MEDS: Albuterol/Ipratropium NEB.SOL* Albuterol 2.5 MG/Ipratropium 0.5 MG 3 ML INH SCH ×3 (01:05→13:35)
[2019-07-18] MEDS: Heparin VIAL(*) 5000 UNITS/ML VIAL (FIVE THOUSAND) SUBCUT SCH ×3 (05:26→22:08)
[2019-07-18 05:40] LABS: ABS Lymphocytes 1.3 10^3/ul (1.0-4.8); ABS Monocytes 0.6 10^3/ul (0-0.8); ABS Neutrophils 4.8 10^3/ul (1.5-7.7); Eosinophil % 0.1 %; Hematocrit 38 % (42-52); Hemoglobin 11.7 g/dL (14.0-18.0); Lymphocyte % 18.8 %; Mean Corpuscular HGB Conc 31 g/dL (31-36); Mean Corpuscular Hemoglobin 27 pg (27-31); Mean Corpuscular Volume 87 fL (80-94); Mean Platelet Volume 8.3 fL (7.4-10.4); Platelet Count 156 10^3/uL (150-450); Red Blood Count 4.33 10^6 /uL (4.18-5.48); Red Cell Distribution Width 16 % (10-15); White Blood Count 6.7 10^3/uL (3.5-10.8)
[2019-07-18 05:59] LABS: BUN/Creatinine Ratio 22.1 (8-20); Calcium 9.1 mg/dL (8.6-10.3); EGFR African American 129.4 (>60); EGFR Non-African American 106.9 (>60); Potassium 4.1 mmol/L (3.5-5.0)
[2019-07-18] MEDS: Mometasone/Formoter 200/5 MDI INH SCH ×2 (07:19→20:40)
[2019-07-18] MEDS: Potassium Chlor TAB* 10 MEQ TAB.ER PO SCH ×3 (07:46→22:07)
[2019-07-18] MEDS: Cefdinir cap* 300 MG CAP PO SCH ×2 (07:46→22:08)
[2019-07-18] MEDS: Nicotine PATCH 21 MG/24 HR* PATCH TRANSDERM SCH (07:47)
[2019-07-18] MEDS: acetaZOLAMIDE TAB* 250 MG PO SCH ×3 (07:47→22:07)
[2019-07-18] MEDS: Azithromycin TAB* 250 MG PO SCH (07:47)
[2019-07-18] MEDS: amLODIPine TAB* 5 MG PO SCH (07:47)
[2019-07-18] MEDS: Magnesium Oxide TAB* 400 MG PO SCH (11:27)
[2019-07-18] MEDS ORDERED: Albuterol/Ipratropium NEB.SOL* Albuterol 2.5 MG/Ipratropium 0.5 MG 3 ML INH PRN (13:26)
--- NOTE | 2019-07-18 13:34 | PN ---
Subjective Date of Service: 07/18/19 Interval History: No acute events overnight. Afebrile. Feeling better. nonproductive cough decreased. Never followed up with Dr. Espitia or got PFTs after August 2018 discharge. Wants to get chantix to help quit smoking. Has used nicotine patch(tolerated) and gum(did not like) before. Able to sleep with the BIPAP. Denies orthopnea. Wants to lose weight. Motivated by grandchildren to get healthier. Objective Active Medications: Acetaminophen (Tylenol Tab*) 650 mg PO Q4H PRN PRN Reason: PAIN - MILD Acetazolamide (Diamox Tab*) 250 mg PO TID [facility] Last Admin: 07/18/19 07:47 Dose: 250 mg Albuterol (Ventolin 2.5 Mg/3 Ml Neb.Lisa*) 2.5 mg INH Q2H PRN PRN Reason: SOB/WHEEZING Albuterol/Ipratropium (Duoneb (Albuterol 2.5 Mg/Ipratropium 0.5 Mg)) 1 neb INH [id number] AWAKE PRN PRN Reason: SHORTNESS OF BREATH Amlodipine Besylate (Norvasc Tab*) 5 mg PO DAILY [facility] Last Admin: 07/18/19 07:47 Dose: 5 mg Azithromycin (Zithromax Tab*) 500 mg PO DAILY [facility] Last Admin: 07/18/19 07:47 Dose: 500 mg Bumetanide (Bumex*) 1 mg SLOW PUSH 0800,1500 [facility] Bumetanide (Bumex*) 1 mg SLOW PUSH ONCE [facility] Cefdinir (Cefdinir Cap*) 300 mg PO BID [facility] Last Admin: 07/18/19 07:46 Dose: 300 mg Heparin Sodium (Porcine) (Heparin Vial(*)) 5,000 units SUBCUT Q8HR [facility] Last Admin: 07/18/19 05:26 Dose: 5,000 units Magnesium Oxide (Magox 400 Tab*) 400 mg PO DAILY@1200 [facility] Last Admin: 07/18/19 11:27 Dose: 400 mg Mometasone Furoate/Formoterol Fumar (Dulera 200/5 Mdi*) 2 puff INH BID [facility] Last Admin: 07/18/19 07:19 Dose: 2 puff Nicotine (Nicotine Patch 21 Mg/24 Hr*) 1 patch TRANSDERM DAILY@0800 [facility] Last Admin: 07/18/19 07:47 Dose: 1 patch Ondansetron HCl (Zofran Inj*) 4 mg IV Q6H PRN PRN Reason: NAUSEA Pharmacy Profile Note (Nicotine Patch Removal Note*) 1 note PATCH OFF 2100 [facility] Potassium Chloride (Klor Con Er Tab*) 10 meq PO TID [facility] Last Admin: 07/18/19 07:46 Dose: 10 meq Prednisone (Deltasone 50 Mg Tab) 50 mg PO DAILY [facility] Last Admin: 07/18/19 07:46 Dose: 50 mg Tiotropium [place] (Spiriva Respimat 2.5 Mcg) 2 puff INH DAILY [facility] Vital Signs - 8 hr 07/18/19 07/18/19 07/18/19 07:15 07:21 08:00 Temperature 98.4 F Pulse Rate 93 84 Respiratory 20 17 18 Rate Blood Pressure 125/61 (mmHg) O2 Sat by Pulse 95 92 Oximetry 07/18/19 11:15 Temperature 98.3 F Pulse Rate 92 Respiratory 20 Rate Blood Pressure 127/72 (mmHg) O2 Sat by Pulse 95 Oximetry Oxygen Devices in Use Now: Nasal Cannula Appearance: NAD Eyes: No Scleral Icterus Ears/Nose/Mouth/Throat: NL Teeth, Lips, Gums Neck: NL Appearance and Movements; NL JVP Respiratory: - - decreased air exchange. Abdominal: NL Sounds; No Tenderness; No Distention Extremities: - - 1+ edema b/l LE Skin: No Rash or Ulcers Neurological: Alert and Oriented x 3 Nutrition: Taking PO's Result Diagrams: 07/18/19 05:26 07/18/19 05:26 Additional Lab and Data: Laboratory Results - last 24 hr 07/17/19 07/17/19 07/18/19 14:05 14:05 05:26 WBC 6.6 6.7 RBC 4.54 4.33 Hgb 12.4 L 11.7 L Hct 39 L 38 L MCV 87 87 MCH 27 27 MCHC 31 31 RDW 17 H 16 H Plt Count 155 156 MPV 8.1 8.3 Neut % (Auto) 90.7 71.4 Lymph % (Auto) 7.0 18.8 [place] % (Auto) 1.9 9.5 Eos % (Auto) 0.0 0.1 Baso % (Auto) 0.4 0.2 Absolute Neuts (auto) 5.9 4.8 Absolute Lymphs (auto) 0.5 L 1.3 Absolute Monos (auto) 0.1 0.6 Absolute Eos (auto) 0.0 0.0 Absolute Basos (auto) 0.0 0.0 Absolute Nucleated RBC 0.0 0.0 Nucleated RBC % 0.0 0.0 Patient Temperature ABG pH ABG pH (Temp Correct) ABG pCO2 ABG pCO2 (Temp Corrct ABG pO2 ABG pO2 (Temp Correct ABG HCO3 ABG O2 Saturation ABG Base Excess Respiration Rate O2 Delivery Device Ventilator Type Vent Mode FiO2 Inspiratory Time PEEP Pressure Support Pressure Control EPAP IPAP BiPAP Sodium 137 Potassium 4.5 Chloride 96 L Carbon Dioxide 36 H Anion Gap 5 BUN 20 Creatinine 0.90 Est GFR ( Amer) 108.1 Est GFR (Non-Af Amer) 89.3 BUN/Creatinine Ratio 22.2 H Glucose 173 H Calcium 9.2 07/18/19 07/18/19 05:26 09:05 WBC RBC Hgb Hct MCV MCH MCHC RDW Plt Count MPV Neut % (Auto) Lymph % (Auto) [place] % (Auto) Eos % (Auto) Baso % (Auto) Absolute Neuts (auto) Absolute Lymphs (auto) Absolute Monos (auto) Absolute Eos (auto) Absolute Basos (auto) Absolute Nucleated RBC Nucleated RBC % Patient Temperature Not Reportable ABG pH 7.33 L ABG pH (Temp Correct) Not Reportable ABG pCO2 68 H ABG pCO2 (Temp Corrct Not Reportable ABG pO2 99 ABG pO2 (Temp Correct Not Reportable ABG HCO3 30.7 ABG O2 Saturation 99.0 H ABG Base Excess 7.4 H Respiration Rate Not Reportable O2 Delivery Device 2 Ventilator Type Not Reportable Vent Mode Not Reportable FiO2 Not Reportable Inspiratory Time Not Reportable PEEP Not Reportable Pressure Support Not Reportable Pressure Control Not Reportable EPAP Not Reportable IPAP Not Reportable BiPAP Not Reportable Sodium 137 Potassium 4.1 Chloride 98 L Carbon Dioxide 35 H Anion Gap 4 BUN 17 Creatinine 0.77 Est GFR ( Amer) 129.4 Est GFR (Non-Af Amer) 106.9 BUN/Creatinine Ratio 22.1 H Glucose 105 H Calcium 9.1 Microbiology and Other Data: Microbiology 07/14/19 21:35 Blood Venous Aerobic Blood Culture - Preliminary No Growth Day 3 07/14/19 21:35 Blood Venous Anaerobic Blood Culture - Preliminary No Growth Day 3 07/14/19 21:12 Blood Venous Aerobic Blood Culture - Preliminary No Growth Day 3 07/14/19 21:12 Blood Venous Anaerobic Blood Culture - Preliminary No Growth Day 3 07/14/19 22:00 Urine Legionella Urinary Antigen - Final Negative Legionella Antigen 07/14/19 22:00 Urine Streptococcus pneumoniae Ag Screen - Final Negative S. pneumo Antigen 07/14/19 21:22 Nasal Nasal Screen MRSA (PCR) - Final Mrsa Not Detected Assess/Plan/Problems-Billing Assessment: 49 yo male PMH severe COPD with chronic hypoxic respiratory failure (3L O2 NC for last year), 1/2 ppd smoker with 35 pack years, morbid obesity, uninsured p/ w SOB, b/l DVT and maybe PE (November 2018, stopped a/c after 1 month) p/w lower extremity edema and nonproductive cough. Acute on chronic hypercapnic failure with suspected COPD exaccerbation w/ likely OHS, diastolic CHF contributing. - Patient Problems (1) Hypercapnic respiratory failure Current Visit: Yes Status: Acute Code(s): J96.92 - RESPIRATORY FAILURE, UNSPECIFIED WITH HYPERCAPNIA SNOMED Code(s): 551757568 Comment: Continue azith, ceftr. Prednsione taper. Bronchodilators. Add spiriva. Needs home NIPPV. Continue acetazolimide, but reduce to BID from TID. ABG today with pCO2 improved to 68 from 89,100, 99. Diurese with bumex 1mg BID. tolerating bipap here. Has never done PFTs. Smoking cessation. strict io daily scale weights. (2) Acute respiratory failure with hypoxia Current Visit: No Status: Acute Code(s): J96.01 - ACUTE RESPIRATORY FAILURE WITH HYPOXIA SNOMED Code(s): 96798852 Comment: plan as above. Review of outpatient pharmacy records reveals he had gotten 30 days of Eliquis on 11/30/[address] Marc (a hospitalist at [place]). Thinks he had b/l DVTs and maybe a blood clot (his symptoms were chest tightness and SOB). Stopped medication after Rx ran out and has not seen a doctor since. Will get Duplex b/l and request records from [place]. Ddimer in ED here was negative. (3) Morbid obesity Current Visit: Yes Status: Acute Code(s): E66.01 - MORBID (SEVERE) OBESITY DUE TO EXCESS CALORIES SNOMED Code(s): 897283337 Comment: BMI 43.0 (4) DVT prophylaxis Current Visit: No Status: Acute Code(s): LCV2235 - SNOMED Code(s): 183046505 Comment: lovenox (5) Tobacco abuse Current Visit: No Status: Acute Code(s): Z72.0 - TOBACCO USE SNOMED Code(s ): 823242304 Comment: continue nicotine patch, will add nicotine inhaler for breakthrough. Pt advised top quit smoking and avoid second hand smoke. (6) DVT (deep venous thrombosis) Current Visit: Yes Status: Acute Code(s): I82.409 - ACUTE EMBOLISM AND THOMBOS UNSP DEEP VN UNSP LOWER EXTREMITY SNOMED Code(s): 449392686 Comment: likely had acute b/l DVTs in November 2018. plan as above. Status and Disposition: medicine inpatient. needing Bipap vs Trilogy for home but these would be contingent on medicaid insurance approval. CM working on it.
[2019-07-18] MEDS ORDERED: Bumetanide IV* 0.25 MG/ML 4 ML VIAL SLOW PUSH ONE (14:00)
[2019-07-18] MEDS: Nicotine Patch Removal NOTE PATCH OFF SCH (21:40)
[2019-07-19] MEDS: Heparin VIAL(*) 5000 UNITS/ML VIAL (FIVE THOUSAND) SUBCUT SCH ×3 (05:47→21:21)
[2019-07-19] MEDS: SPIRIVA Respimat* (tiotropium) 2.5 mcg/inh Inhaler INH SCH (08:03)
[2019-07-19] MEDS: Mometasone/Formoter 200/5 MDI INH SCH ×2 (08:04→20:06)
[2019-07-19] MEDS: Bumetanide IV* 0.25 MG/ML 4 ML VIAL SLOW PUSH SCH ×2 (09:15→15:04)
[2019-07-19] MEDS: Nicotine PATCH 21 MG/24 HR* PATCH TRANSDERM SCH (09:16)
[2019-07-19] MEDS: Cefdinir cap* 300 MG CAP PO SCH ×2 (09:18→21:21)
[2019-07-19] MEDS: Potassium Chlor TAB* 10 MEQ TAB.ER PO SCH ×3 (09:18→21:21)
[2019-07-19] MEDS: amLODIPine TAB* 5 MG PO SCH (09:18)
[2019-07-19] MEDS: acetaZOLAMIDE TAB* 250 MG PO SCH ×3 (09:19→21:21)
[2019-07-19] MEDS: Azithromycin TAB* 250 MG PO SCH (09:19)
[2019-07-19] MEDS: Magnesium Oxide TAB* 400 MG PO SCH (11:44)
--- NOTE | 2019-07-19 13:35 | PN ---
Subjective Date of Service: 07/19/19 Interval History: No acute events overnight. Afebrile. Slept well on the Bipap. Weight slightly down 120.4 from 120.9 kg four days prior. Joseph chest pain, abdominal pain, fevers, chills, calf pain. Does have productive cough. BM+ Looking forward to going home. Objective Active Medications: Acetaminophen (Tylenol Tab*) 650 mg PO Q4H PRN PRN Reason: PAIN - MILD Acetazolamide (Diamox Tab*) 250 mg PO TID [facility] Last Admin: 07/19/19 09:19 Dose: 250 mg Albuterol (Ventolin 2.5 Mg/3 Ml Neb.Lisa*) 2.5 mg INH Q2H PRN PRN Reason: SOB/WHEEZING Albuterol/Ipratropium (Duoneb (Albuterol 2.5 Mg/Ipratropium 0.5 Mg)) 1 neb INH [id number] AWAKE PRN PRN Reason: SHORTNESS OF BREATH Amlodipine Besylate (Norvasc Tab*) 5 mg PO DAILY [facility] Last Admin: 07/19/19 09:18 Dose: 5 mg Azithromycin (Zithromax Tab*) 500 mg PO DAILY [facility] Last Admin: 07/19/19 09:19 Dose: 500 mg Bumetanide (Bumex*) 1 mg SLOW PUSH 0800,1500 [facility] Last Admin: 07/19/19 09:15 Dose: 1 mg Cefdinir (Cefdinir Cap*) 300 mg PO BID [facility] Last Admin: 07/19/19 09:18 Dose: 300 mg Heparin Sodium (Porcine) (Heparin Vial(*)) 5,000 units SUBCUT Q8HR [facility] Last Admin: 07/19/19 05:47 Dose: 5,000 units Magnesium Oxide (Magox 400 Tab*) 400 mg PO DAILY@1200 [facility] Last Admin: 07/19/19 11:44 Dose: 400 mg Mometasone Furoate/Formoterol Fumar (Dulera 200/5 Mdi*) 2 puff INH BID [facility] Last Admin: 07/19/19 08:04 Dose: 2 puff Nicotine (Nicotine Patch 21 Mg/24 Hr*) 1 patch TRANSDERM DAILY@0800 [facility] Last Admin: 07/19/19 09:16 Dose: 1 patch Ondansetron HCl (Zofran Inj*) 4 mg IV Q6H PRN PRN Reason: NAUSEA Pharmacy Profile Note (Nicotine Patch Removal Note*) 1 note PATCH OFF 2100 [facility] Last Admin: 07/18/19 21:40 Dose: 1 note Potassium Chloride (Klor Con Er Tab*) 10 meq PO TID [facility] Last Admin: 07/19/19 09:18 Dose: 10 meq Prednisone (Deltasone 50 Mg Tab) 50 mg PO DAILY [facility] Last Admin: 07/19/19 09:19 Dose: 50 mg Tiotropium [place] (Spiriva Respimat 2.5 Mcg) 2 puff INH DAILY [facility] Last Admin: 07/19/19 08:03 Dose: 2 puff Vital Signs - 8 hr 07/19/19 07/19/19 07/19/19 07:26 08:00 08:07 Temperature 98 F Pulse Rate 72 74 Respiratory 18 17 18 Rate Blood Pressure 112/65 (mmHg) O2 Sat by Pulse 97 93 Oximetry 07/19/19 07/19/19 09:20 11:08 Temperature 97.8 F Pulse Rate 79 Respiratory 18 Rate Blood Pressure 140/70 116/55 (mmHg) O2 Sat by Pulse 94 Oximetry Oxygen Devices in Use Now: Nasal Cannula Appearance: NAD, sitting in chair. Eyes: No Scleral Icterus Ears/Nose/Mouth/Throat: NL Teeth, Lips, Gums Neck: NL Appearance and Movements; NL JVP Respiratory: - - moderate air exchange, no wheezing. slighly rhonchorous. Cardiovascular: NL Sounds; No Murmurs; No JVD Abdominal: NL Sounds; No Tenderness; No Distention Extremities: - - 1-2+ dependent edema in LE Skin: No Rash or Ulcers Neurological: Alert and Oriented x 3 Nutrition: Taking PO's Result Diagrams: 07/18/19 05:26 07/18/19 05:26 Microbiology and Other Data: Microbiology 07/14/19 21:35 Blood Venous Aerobic Blood Culture - Preliminary No Growth Day 4 07/14/19 21:35 Blood Venous Anaerobic Blood Culture - Preliminary No Growth Day 4 07/14/19 21:12 Blood Venous Aerobic Blood Culture - Preliminary No Growth Day 4 07/14/19 21:12 Blood Venous Anaerobic Blood Culture - Preliminary No Growth Day 4 07/14/19 22:00 Urine Legionella Urinary Antigen - Final Negative Legionella Antigen 07/14/19 22:00 Urine Streptococcus pneumoniae Ag Screen - Final Negative S. pneumo Antigen 07/14/19 21:22 Nasal Nasal Screen MRSA (PCR) - Final Mrsa Not Detected Assess/Plan/Problems-Billing Assessment: 49 yo male PMH severe COPD with chronic hypoxic respiratory failure (3L O2 NC for last year), 1/2 ppd smoker with 35 pack years, morbid obesity, uninsured p/ w SOB, b/l DVT and maybe PE (November 2018, stopped a/c after 1 month) p/w lower extremity edema and nonproductive cough. Acute on chronic hypercapnic failure with suspected COPD exacerbation w/ likely OHS, diastolic CHF contributing. - Patient Problems (1) Hypercapnic respiratory failure Current Visit: Yes Status: Acute Code(s): J96.92 - RESPIRATORY FAILURE, UNSPECIFIED WITH HYPERCAPNIA SNOMED Code(s): 588017034 Comment: Continue azith, ceftr. Prednsione taper (will decrease from 50mg to 40mg for tomorrow). Bronchodilators. continue spiriva. Needs home NIPPV. Continue acetazolimide at BID from TID. f/u repeat BMP tomorrow. ABG 07/18 with pCO2 improved to 68 from 89,100, 99. Continue Diurese with bumex 1mg BID. tolerating bipap here. Has never done PFTs. Smoking cessation. strict io daily scale weights. (2) Acute respiratory failure with hypoxia Current Visit: No Status: Acute Code(s): J96.01 - ACUTE RESPIRATORY FAILURE WITH HYPOXIA SNOMED Code(s): 82794652 Comment: plan as above. Review of outpatient pharmacy records reveals he had gotten 30 days of Eliquis on 11/30/[address] Marc (a hospitalist at [facility]). Thinks he had b/l DVTs and maybe a blood clot (his symptoms were chest tightness and SOB). Stopped medication after Rx ran out and has not seen a doctor since. Will get Duplex b/l (still pending) and request records from [facility] (still pending). Ddimer in ED here was negative. (3) Morbid obesity Current Visit: Yes Status: Acute Code(s): E66.01 - MORBID (SEVERE) OBESITY DUE TO EXCESS CALORIES SNOMED Code(s): 202296497 Comment: BMI 43.0 (4) DVT prophylaxis Current Visit: No Status: Acute Code(s): CUI1478 - SNOMED Code(s): 772986583 Comment: lovenox (5) Tobacco abuse Current Visit: No Status: Acute Code(s): Z72.0 - TOBACCO USE SNOMED Code(s ): 475498213 Comment: continue nicotine patch, will add nicotine inhaler for breakthrough. Pt advised top quit smoking and avoid second hand smoke. (6) DVT (deep venous thrombosis) Current Visit: Yes Status: Acute Code(s): I82.409 - ACUTE EMBOLISM AND THOMBOS UNSP DEEP VN UNSP LOWER EXTREMITY SNOMED Code(s): 001760009 Comment: likely had acute b/l DVTs in November 2018. plan as above. Status and Disposition: medicine inpatient. needing Bipap vs Trilogy for home but these would be contingent on medicaid insurance approval. CM working on it.
[2019-07-19] MEDS: Nicotine Patch Removal NOTE PATCH OFF SCH (21:22)
[2019-07-20] MEDS: Heparin VIAL(*) 5000 UNITS/ML VIAL (FIVE THOUSAND) SUBCUT SCH ×3 (05:08→20:55)
[2019-07-20] MEDS: SPIRIVA Respimat* (tiotropium) 2.5 mcg/inh Inhaler INH SCH (08:36)
[2019-07-20] MEDS: Mometasone/Formoter 200/5 MDI INH SCH ×2 (08:36→20:18)
[2019-07-20] MEDS: Nicotine PATCH 21 MG/24 HR* PATCH TRANSDERM SCH (08:48)
[2019-07-20] MEDS: Bumetanide IV* 0.25 MG/ML 4 ML VIAL SLOW PUSH SCH ×2 (08:48→14:24)
[2019-07-20] MEDS: Cefdinir cap* 300 MG CAP PO SCH ×2 (08:49→20:55)
[2019-07-20] MEDS: acetaZOLAMIDE TAB* 250 MG PO SCH ×3 (08:49→20:55)
[2019-07-20] MEDS: Potassium Chlor TAB* 10 MEQ TAB.ER PO SCH ×3 (08:49→20:55)
[2019-07-20] MEDS: amLODIPine TAB* 5 MG PO SCH (08:49)
[2019-07-20] MEDS: Azithromycin TAB* 250 MG PO SCH (08:50)
[2019-07-20] MEDS: Magnesium Oxide TAB* 400 MG PO SCH (11:37)
--- NOTE | 2019-07-20 17:24 | PN ---
Subjective Date of Service: 07/20/19 Interval History: Pt is feeling well. He thinks his breathing is back to baseline. He has ambulated some (probably as much as he normally does at home), without difficulty. He notes his legs are more swollen than usual. Objective Active Medications: Acetaminophen (Tylenol Tab*) 650 mg PO Q4H PRN PRN Reason: PAIN - MILD Acetazolamide (Diamox Tab*) 250 mg PO TID [facility] Last Admin: 07/20/19 14:28 Dose: 250 mg Albuterol (Ventolin 2.5 Mg/3 Ml Neb.Lisa*) 2.5 mg INH Q2H PRN PRN Reason: SOB/WHEEZING Albuterol/Ipratropium (Duoneb (Albuterol 2.5 Mg/Ipratropium 0.5 Mg)) 1 neb INH [id number] AWAKE PRN PRN Reason: SHORTNESS OF BREATH Amlodipine Besylate (Norvasc Tab*) 5 mg PO DAILY [facility] Last Admin: 07/20/19 08:49 Dose: 5 mg Azithromycin (Zithromax Tab*) 500 mg PO DAILY [facility] Last Admin: 07/20/19 08:50 Dose: 500 mg Bumetanide (Bumex*) 1 mg SLOW PUSH 0800,1500 [facility] Last Admin: 07/20/19 14:24 Dose: 1 mg Cefdinir (Cefdinir Cap*) 300 mg PO BID [facility] Last Admin: 07/20/19 08:49 Dose: 300 mg Heparin Sodium (Porcine) (Heparin Vial(*)) 5,000 units SUBCUT Q8HR [facility] Last Admin: 07/20/19 14:25 Dose: 5,000 units Magnesium Oxide (Magox 400 Tab*) 400 mg PO DAILY@1200 [facility] Last Admin: 07/20/19 11:37 Dose: 400 mg Mometasone Furoate/Formoterol Fumar (Dulera 200/5 Mdi*) 2 puff INH BID [facility] Last Admin: 07/20/19 08:36 Dose: 2 puff Nicotine (Nicotine Patch 21 Mg/24 Hr*) 1 patch TRANSDERM DAILY@0800 [facility] Last Admin: 07/20/19 08:48 Dose: 1 patch Ondansetron HCl (Zofran Inj*) 4 mg IV Q6H PRN PRN Reason: NAUSEA Pharmacy Profile Note (Nicotine Patch Removal Note*) 1 note PATCH OFF 2100 [facility] Last Admin: 07/19/19 21:22 Dose: 1 note Potassium Chloride (Klor Con Er Tab*) 10 meq PO TID [facility] Last Admin: 07/20/19 14:23 Dose: 10 meq Prednisone (Deltasone 20 Mg Tab) 40 mg PO DAILY [facility] Last Admin: 07/20/19 08:50 Dose: 40 mg Tiotropium [place] (Spiriva Respimat 2.5 Mcg) 2 puff INH DAILY [facility] Last Admin: 07/20/19 08:36 Dose: 2 puff Vital Signs - 8 hr 07/20/19 07/20/19 11:15 15:15 Temperature 97.6 F 97.7 F Pulse Rate 82 99 Respiratory 22 20 Rate Blood Pressure 117/68 129/73 (mmHg) O2 Sat by Pulse 94 94 Oximetry Oxygen Devices in Use Now: Nasal Cannula - 2L Appearance: Middle aged male who appears older than his stated age, sitting up in a chair, NAD Eyes: No Scleral Icterus Ears/Nose/Mouth/Throat: Mucous Membranes Moist Respiratory: Symmetrical Chest Expansion and Respiratory Effort, Clear to Auscultation Cardiovascular: NL Sounds; No Murmurs; No JVD, RRR, - - 1+ LE edema Abdominal: NL Sounds; No Tenderness; No Distention Extremities: No Clubbing, Cyanosis Skin: No Nodules or Sclerosis Neurological: Alert and Oriented x 3 Result Diagrams: 07/18/19 05:26 07/18/19 05:26 Additional Lab and Data: Laboratory Results - last 24 hr 07/17/19 07/17/19 07/18/19 14:05 14:05 05:26 WBC 6.6 6.7 RBC 4.54 4.33 Hgb 12.4 L 11.7 L Hct 39 L 38 L MCV 87 87 MCH 27 27 MCHC 31 31 RDW 17 H 16 H Plt Count 155 156 MPV 8.1 8.3 Neut % (Auto) 90.7 71.4 Lymph % (Auto) 7.0 18.8 [place] % (Auto) 1.9 9.5 Eos % (Auto) 0.0 0.1 Baso % (Auto) 0.4 0.2 Absolute Neuts (auto) 5.9 4.8 Absolute Lymphs (auto) 0.5 L 1.3 Absolute Monos (auto) 0.1 0.6 Absolute Eos (auto) 0.0 0.0 Absolute Basos (auto) 0.0 0.0 Absolute Nucleated RBC 0.0 0.0 Nucleated RBC % 0.0 0.0 Patient Temperature ABG pH ABG pH (Temp Correct) ABG pCO2 ABG pCO2 (Temp Corrct ABG pO2 ABG pO2 (Temp Correct ABG HCO3 ABG O2 Saturation ABG Base Excess Respiration Rate O2 Delivery Device Ventilator Type Vent Mode FiO2 Inspiratory Time PEEP Pressure Support Pressure Control EPAP IPAP BiPAP Sodium 137 Potassium 4.5 Chloride 96 L Carbon Dioxide 36 H Anion Gap 5 BUN 20 Creatinine 0.90 Est GFR ( Amer) 108.1 Est GFR (Non-Af Amer) 89.3 BUN/Creatinine Ratio 22.2 H Glucose 173 H Calcium 9.2 07/18/19 07/18/19 05:26 09:05 WBC RBC Hgb Hct MCV MCH MCHC RDW Plt Count MPV Neut % (Auto) Lymph % (Auto) [place] % (Auto) Eos % (Auto) Baso % (Auto) Absolute Neuts (auto) Absolute Lymphs (auto) Absolute Monos (auto) Absolute Eos (auto) Absolute Basos (auto) Absolute Nucleated RBC Nucleated RBC % Patient Temperature Not Reportable ABG pH 7.33 L ABG pH (Temp Correct) Not Reportable ABG pCO2 68 H ABG pCO2 (Temp Corrct Not Reportable ABG pO2 99 ABG pO2 (Temp Correct Not Reportable ABG HCO3 30.7 ABG O2 Saturation 99.0 H ABG Base Excess 7.4 H Respiration Rate Not Reportable O2 Delivery Device 2 Ventilator Type Not Reportable Vent Mode Not Reportable FiO2 Not Reportable Inspiratory Time Not Reportable PEEP Not Reportable Pressure Support Not Reportable Pressure Control Not Reportable EPAP Not Reportable IPAP Not Reportable BiPAP Not Reportable Sodium 137 Potassium 4.1 Chloride 98 L Carbon Dioxide 35 H Anion Gap 4 BUN 17 Creatinine 0.77 Est GFR ( Amer) 129.4 Est GFR (Non-Af Amer) 106.9 BUN/Creatinine Ratio 22.1 H Glucose 105 H Calcium 9.1 Microbiology and Other Data: Microbiology 07/14/19 21:35 Blood Venous Aerobic Blood Culture - Preliminary No Growth Day 4 07/14/19 21:35 Blood Venous Anaerobic Blood Culture - Preliminary No Growth Day 4 07/14/19 21:12 Blood Venous Aerobic Blood Culture - Preliminary No Growth Day 4 07/14/19 21:12 Blood Venous Anaerobic Blood Culture - Preliminary No Growth Day 4 07/14/19 22:00 Urine Legionella Urinary Antigen - Final Negative Legionella Antigen 07/14/19 22:00 Urine Streptococcus pneumoniae Ag Screen - Final Negative S. pneumo Antigen 07/14/19 21:22 Nasal Nasal Screen MRSA (PCR) - Final Mrsa Not Detected Assess/Plan/Problems-Billing Mr Savage is a 49 yo male with a PMHx of severe COPD with chronic hypoxic respiratory failure (2-3L O2 NC for last year), 1/2 ppd smoker with 35 pack years, morbid obesity, uninsured who p/w SOB lower extremity edema and nonproductive cough and was diagnosed with acute on chronic hypercapnic respiratory failure with suspected COPD exacerbation w/ likely OHS and diastolic CHF contributing. - Patient Problems (1) Hypercapnic respiratory failure Current Visit: Yes Status: Acute Code(s): J96.92 - RESPIRATORY FAILURE, UNSPECIFIED WITH HYPERCAPNIA SNOMED Code(s): 306593489 Comment: Likely COPD exacerbation and possible diastolic CHF exacerbation leading to his acute on chronic hypercapnic respiratory failure. Prednisone is being tapered. On azithromycin and ceftriaxone. Continue to diurese with bumex 1mg BID. Follow weights daily. He is on acetazolamide for ? contraction alkalosis. Will check BMP tomorrow. If CO2 normal may be able to stop. He is felt to need NIPPV on d/c. Awaiting insurance. (2) Acute respiratory failure with hypoxia Current Visit: Yes Status: Acute Code(s): J96.01 - ACUTE RESPIRATORY FAILURE WITH HYPOXIA SNOMED Code(s): 23731983 Comment: At one point during this hospitalization the patient required 5L O2. Now back down to his baseline 2L. No evidence of DVT and likely no PE as Ddimer was negative in ER. (3) DVT (deep venous thrombosis) Current Visit: Yes Status: Acute Code(s): I82.409 - ACUTE EMBOLISM AND THOMBOS UNSP DEEP VN UNSP LOWER EXTREMITY SNOMED Code(s): 475352475 Comment: No evidence of DVT now. No need for anticoagulation. (4) Tobacco abuse Current Visit: Yes Status: Acute Code(s): Z72.0 - TOBACCO USE SNOMED Code( s): 930704707 Comment: Conitnue nicotine patch. Encourage smoking cessation. (5) Morbid obesity Current Visit: Yes Status: Acute Code(s): E66.01 - MORBID (SEVERE) OBESITY DUE TO EXCESS CALORIES SNOMED Code(s): 241629574 Comment: BMI is about 43.0 (6) DVT prophylaxis Current Visit: Yes Status: Acute Code(s): WBZ3024 - SNOMED Code(s): 670690728 Comment: SQ heparin (7) Full code status Current Visit: Yes Status: Acute Code(s): Z78.9 - OTHER SPECIFIED HEALTH STATUS SNOMED Code(s): 283182198 Status and Disposition: medicine inpatient. needing Bipap vs Trilogy for home but these would be contingent on medicaid insurance approval. CM working on it.
[2019-07-20] MEDS: Nicotine Patch Removal NOTE PATCH OFF SCH (20:56)
[2019-07-21] MEDS: Heparin VIAL(*) 5000 UNITS/ML VIAL (FIVE THOUSAND) SUBCUT SCH ×3 (04:58→21:01)
[2019-07-21 07:32] LABS: BUN/Creatinine Ratio 27.2 (8-20); Calcium 8.7 mg/dL (8.6-10.3); EGFR African American 122.1 (>60); EGFR Non-African American 100.9 (>60); Potassium 4.2 mmol/L (3.5-5.0)
[2019-07-21] MEDS: SPIRIVA Respimat* (tiotropium) 2.5 mcg/inh Inhaler INH SCH (08:27)
[2019-07-21] MEDS: Mometasone/Formoter 200/5 MDI INH SCH ×2 (08:27→20:50)
[2019-07-21] MEDS: Potassium Chlor TAB* 10 MEQ TAB.ER PO SCH ×3 (08:45→21:00)
[2019-07-21] MEDS: Cefdinir cap* 300 MG CAP PO SCH (08:47)
[2019-07-21] MEDS: acetaZOLAMIDE TAB* 250 MG PO SCH ×3 (08:47→21:00)
[2019-07-21] MEDS: Azithromycin TAB* 250 MG PO SCH (08:47)
[2019-07-21] MEDS: amLODIPine TAB* 5 MG PO SCH (08:47)
[2019-07-21] MEDS: Nicotine PATCH 21 MG/24 HR* PATCH TRANSDERM SCH (08:48)
[2019-07-21] MEDS: Bumetanide IV* 0.25 MG/ML 4 ML VIAL SLOW PUSH SCH ×2 (08:48→15:10)
--- NOTE | 2019-07-21 11:26 | PN ---
Subjective Date of Service: 07/21/19 Interval History: Pt is feeling well. He is essentially at baseline. No chest pain or SOB. He is really frustrated that he is "stuck" at the hospital waiting for insurance and BiPAP approval. Objective Active Medications: Acetaminophen (Tylenol Tab*) 650 mg PO Q4H PRN PRN Reason: PAIN - MILD Acetazolamide (Diamox Tab*) 250 mg PO TID [facility] Last Admin: 07/21/19 08:47 Dose: 250 mg Albuterol (Ventolin 2.5 Mg/3 Ml Neb.Lisa*) 2.5 mg INH Q2H PRN PRN Reason: SOB/WHEEZING Albuterol/Ipratropium (Duoneb (Albuterol 2.5 Mg/Ipratropium 0.5 Mg)) 1 neb INH [id number] AWAKE PRN PRN Reason: SHORTNESS OF BREATH Amlodipine Besylate (Norvasc Tab*) 5 mg PO DAILY [facility] Last Admin: 07/21/19 08:47 Dose: 5 mg Bumetanide (Bumex*) 1 mg SLOW PUSH 0800,1500 [facility] Last Admin: 07/21/19 08:48 Dose: 1 mg Cefdinir (Cefdinir Cap*) 300 mg PO BID [facility] Last Admin: 07/21/19 08:47 Dose: 300 mg Heparin Sodium (Porcine) (Heparin Vial(*)) 5,000 units SUBCUT Q8HR [facility] Last Admin: 07/21/19 04:58 Dose: 5,000 units Magnesium Oxide (Magox 400 Tab*) 400 mg PO DAILY@1200 [facility] Last Admin: 07/20/19 11:37 Dose: 400 mg Mometasone Furoate/Formoterol Fumar (Dulera 200/5 Mdi*) 2 puff INH BID [facility] Last Admin: 07/21/19 08:27 Dose: 2 puff Nicotine (Nicotine Patch 21 Mg/24 Hr*) 1 patch TRANSDERM DAILY@0800 [facility] Last Admin: 07/21/19 08:48 Dose: 1 patch Ondansetron HCl (Zofran Inj*) 4 mg IV Q6H PRN PRN Reason: NAUSEA Pharmacy Profile Note (Nicotine Patch Removal Note*) 1 note PATCH OFF 2100 [facility] Last Admin: 07/20/19 20:56 Dose: 1 note Potassium Chloride (Klor Con Er Tab*) 10 meq PO TID [facility] Last Admin: 07/21/19 08:45 Dose: 10 meq Prednisone (Deltasone 20 Mg Tab) 40 mg PO DAILY [facility] Last Admin: 07/21/19 08:47 Dose: 40 mg Tiotropium [place] (Spiriva Respimat 2.5 Mcg) 2 puff INH DAILY [facility] Last Admin: 07/21/19 08:27 Dose: Not Given Vital Signs - 8 hr 07/21/19 07/21/19 07/21/19 07:58 08:00 08:22 Temperature 97.5 F Pulse Rate 81 Respiratory 18 18 Rate Blood Pressure 101/43 142/78 (mmHg) O2 Sat by Pulse 94 Oximetry 07/21/19 08:28 Temperature Pulse Rate 84 Respiratory 20 Rate Blood Pressure (mmHg) O2 Sat by Pulse 94 Oximetry Oxygen Devices in Use Now: Nasal Cannula Appearance: Middle aged male sitting up in bed, NAD Eyes: No Scleral Icterus Ears/Nose/Mouth/Throat: Mucous Membranes Moist Respiratory: Symmetrical Chest Expansion and Respiratory Effort, Clear to Auscultation - few LLL crackles Cardiovascular: NL Sounds; No Murmurs; No JVD, RRR, - - trace LE edema Abdominal: NL Sounds; No Tenderness; No Distention Extremities: No Clubbing, Cyanosis Skin: No Nodules or Sclerosis Neurological: Alert and Oriented x 3 Result Diagrams: 07/18/19 05:26 07/21/19 06:59 Additional Lab and Data: Laboratory Results - last 24 hr 07/17/19 07/17/19 07/18/19 14:05 14:05 05:26 WBC 6.6 6.7 RBC 4.54 4.33 Hgb 12.4 L 11.7 L Hct 39 L 38 L MCV 87 87 MCH 27 27 MCHC 31 31 RDW 17 H 16 H Plt Count 155 156 MPV 8.1 8.3 Neut % (Auto) 90.7 71.4 Lymph % (Auto) 7.0 18.8 [place] % (Auto) 1.9 9.5 Eos % (Auto) 0.0 0.1 Baso % (Auto) 0.4 0.2 Absolute Neuts (auto) 5.9 4.8 Absolute Lymphs (auto) 0.5 L 1.3 Absolute Monos (auto) 0.1 0.6 Absolute Eos (auto) 0.0 0.0 Absolute Basos (auto) 0.0 0.0 Absolute Nucleated RBC 0.0 0.0 Nucleated RBC % 0.0 0.0 Patient Temperature ABG pH ABG pH (Temp Correct) ABG pCO2 ABG pCO2 (Temp Corrct ABG pO2 ABG pO2 (Temp Correct ABG HCO3 ABG O2 Saturation ABG Base Excess Respiration Rate O2 Delivery Device Ventilator Type Vent Mode FiO2 Inspiratory Time PEEP Pressure Support Pressure Control EPAP IPAP BiPAP Sodium 137 Potassium 4.5 Chloride 96 L Carbon Dioxide 36 H Anion Gap 5 BUN 20 Creatinine 0.90 Est GFR ( Amer) 108.1 Est GFR (Non-Af Amer) 89.3 BUN/Creatinine Ratio 22.2 H Glucose 173 H Calcium 9.2 07/18/19 07/18/19 05:26 09:05 WBC RBC Hgb Hct MCV MCH MCHC RDW Plt Count MPV Neut % (Auto) Lymph % (Auto) [place] % (Auto) Eos % (Auto) Baso % (Auto) Absolute Neuts (auto) Absolute Lymphs (auto) Absolute Monos (auto) Absolute Eos (auto) Absolute Basos (auto) Absolute Nucleated RBC Nucleated RBC % Patient Temperature Not Reportable ABG pH 7.33 L ABG pH (Temp Correct) Not Reportable ABG pCO2 68 H ABG pCO2 (Temp Corrct Not Reportable ABG pO2 99 ABG pO2 (Temp Correct Not Reportable ABG HCO3 30.7 ABG O2 Saturation 99.0 H ABG Base Excess 7.4 H Respiration Rate Not Reportable O2 Delivery Device 2 Ventilator Type Not Reportable Vent Mode Not Reportable FiO2 Not Reportable Inspiratory Time Not Reportable PEEP Not Reportable Pressure Support Not Reportable Pressure Control Not Reportable EPAP Not Reportable IPAP Not Reportable BiPAP Not Reportable Sodium 137 Potassium 4.1 Chloride 98 L Carbon Dioxide 35 H Anion Gap 4 BUN 17 Creatinine 0.77 Est GFR ( Amer) 129.4 Est GFR (Non-Af Amer) 106.9 BUN/Creatinine Ratio 22.1 H Glucose 105 H Calcium 9.1 Microbiology and Other Data: Microbiology 07/14/19 21:35 Blood Venous Aerobic Blood Culture - Preliminary No Growth Day 4 07/14/19 21:35 Blood Venous Anaerobic Blood Culture - Preliminary No Growth Day 4 07/14/19 21:12 Blood Venous Aerobic Blood Culture - Preliminary No Growth Day 4 07/14/19 21:12 Blood Venous Anaerobic Blood Culture - Preliminary No Growth Day 4 07/14/19 22:00 Urine Legionella Urinary Antigen - Final Negative Legionella Antigen 07/14/19 22:00 Urine Streptococcus pneumoniae Ag Screen - Final Negative S. pneumo Antigen 07/14/19 21:22 Nasal Nasal Screen MRSA (PCR) - Final Mrsa Not Detected Assess/Plan/Problems-Billing Mr Savage is a 49 yo male with a PMHx of severe COPD with chronic hypoxic respiratory failure (2-3L O2 NC for last year), 1/2 ppd smoker with 35 pack years, morbid obesity, uninsured who p/w SOB lower extremity edema and nonproductive cough and was diagnosed with acute on chronic hypercapnic respiratory failure with suspected COPD exacerbation w/ likely OHS and diastolic CHF contributing. - Patient Problems (1) Hypercapnic respiratory failure Current Visit: Yes Status: Acute Code(s): J96.92 - RESPIRATORY FAILURE, UNSPECIFIED WITH HYPERCAPNIA SNOMED Code(s): 590591605 Comment: Likely COPD exacerbation and possible diastolic CHF exacerbation leading to his acute on chronic hypercapnic respiratory failure. Prednisone is being tapered, taper to 30mg tomorrow. I was wrong yesterday-he had been transitioned to cefdinir on 07/17/19. He has completed his entire course of therapy. He has been diuresed with bumex IV 1mg BID. Change to lasix 40mg daily. Follow weights daily-it does not appear there has been much change in weight over the last several days. He is on acetazolamide for ? contraction alkalosis. He is felt to need NIPPV on d/c. Awaiting insurance. (2) Acute respiratory failure with hypoxia Current Visit: Yes Status: Acute Code(s): J96.01 - ACUTE RESPIRATORY FAILURE WITH HYPOXIA SNOMED Code(s): 43892472 Comment: At one point during this hospitalization the patient required 5L O2. Now back down to his baseline 2L. No evidence of DVT and likely no PE as Ddimer was negative in ER. (3) DVT (deep venous thrombosis) Current Visit: Yes Status: Acute Code(s): I82.409 - ACUTE EMBOLISM AND THOMBOS UNSP DEEP VN UNSP LOWER EXTREMITY SNOMED Code(s): 704523819 Comment: No evidence of DVT now. No need for anticoagulation. (4) Tobacco abuse Current Visit: Yes Status: Acute Code(s): Z72.0 - TOBACCO USE SNOMED Code( s): 144364199 Comment: Conitnue nicotine patch. Encourage smoking cessation. (5) Morbid obesity Current Visit: Yes Status: Acute Code(s): E66.01 - MORBID (SEVERE) OBESITY DUE TO EXCESS CALORIES SNOMED Code(s): 342613170 Comment: BMI is about 43.0 (6) DVT prophylaxis Current Visit: Yes Status: Acute Code(s): SWF5056 - SNOMED Code(s): 229054314 Comment: SQ heparin (7) Full code status Current Visit: Yes Status: Acute Code(s): Z78.9 - OTHER SPECIFIED HEALTH STATUS SNOMED Code(s): 622815283 Status and Disposition: medicine inpatient. needing Bipap vs Trilogy for home but these would be contingent on medicaid insurance approval. CM working on it.
[2019-07-21] MEDS: Magnesium Oxide TAB* 400 MG PO SCH (12:39)
[2019-07-21] MEDS: Nicotine Patch Removal NOTE PATCH OFF SCH (21:06)
[2019-07-22] MEDS: Heparin VIAL(*) 5000 UNITS/ML VIAL (FIVE THOUSAND) SUBCUT SCH ×3 (05:33→21:11)
[2019-07-22] MEDS: Bumetanide IV* 0.25 MG/ML 4 ML VIAL SLOW PUSH SCH ×2 (07:32→15:01)
[2019-07-22] MEDS: Potassium Chlor TAB* 10 MEQ TAB.ER PO SCH ×2 (07:33→15:00)
[2019-07-22] MEDS: Nicotine PATCH 21 MG/24 HR* PATCH TRANSDERM SCH (07:33)
[2019-07-22] MEDS: acetaZOLAMIDE TAB* 250 MG PO SCH ×2 (07:33→15:00)
[2019-07-22] MEDS: Mometasone/Formoter 200/5 MDI INH SCH ×2 (08:32→19:29)
[2019-07-22] MEDS: SPIRIVA Respimat* (tiotropium) 2.5 mcg/inh Inhaler INH SCH (08:57)
[2019-07-22] MEDS: amLODIPine TAB* 5 MG PO SCH (09:41)
[2019-07-22] MEDS: Magnesium Oxide TAB* 400 MG PO SCH (11:46)
--- NOTE | 2019-07-22 16:09 | PN ---
Subjective Date of Service: 07/22/19 Interval History: Pt is feeling well. He denies any SOB or chest pain. He is really anxious to go home. He understands the need to have NIPPV on d/c and is willing to do a needed overnight oximetry study to eval for hypoxia tonight. We are hopeful he will have insurance approved tomorrow. Objective Active Medications: Acetaminophen (Tylenol Tab*) 650 mg PO Q4H PRN PRN Reason: PAIN - MILD Acetazolamide (Diamox Tab*) 250 mg PO TID [facility] Last Admin: 07/22/19 15:00 Dose: 250 mg Albuterol (Ventolin 2.5 Mg/3 Ml Neb.Lisa*) 2.5 mg INH Q2H PRN PRN Reason: SOB/WHEEZING Albuterol/Ipratropium (Duoneb (Albuterol 2.5 Mg/Ipratropium 0.5 Mg)) 1 neb INH [id number] AWAKE PRN PRN Reason: SHORTNESS OF BREATH Amlodipine Besylate (Norvasc Tab*) 5 mg PO DAILY [facility] Last Admin: 07/22/19 09:41 Dose: 5 mg Bumetanide (Bumex*) 1 mg SLOW PUSH 0800,1500 [facility] Last Admin: 07/22/19 15:01 Dose: 1 mg Heparin Sodium (Porcine) (Heparin Vial(*)) 5,000 units SUBCUT Q8HR [facility] Last Admin: 07/22/19 15:01 Dose: 5,000 units Magnesium Oxide (Magox 400 Tab*) 400 mg PO DAILY@1200 [facility] Last Admin: 07/22/19 11:46 Dose: 400 mg Mometasone Furoate/Formoterol Fumar (Dulera 200/5 Mdi*) 2 puff INH BID [facility] Last Admin: 07/22/19 08:32 Dose: 2 puff Nicotine (Nicotine Patch 21 Mg/24 Hr*) 1 patch TRANSDERM DAILY@0800 [facility] Last Admin: 07/22/19 07:33 Dose: 1 patch Ondansetron HCl (Zofran Inj*) 4 mg IV Q6H PRN PRN Reason: NAUSEA Pharmacy Profile Note (Nicotine Patch Removal Note*) 1 note PATCH OFF 2100 [facility] Last Admin: 07/21/19 21:06 Dose: 1 note Potassium Chloride (Klor Con Er Tab*) 10 meq PO TID [facility] Last Admin: 07/22/19 15:00 Dose: 10 meq Prednisone (Deltasone 10 Mg Tab) 30 mg PO DAILY [facility] Last Admin: 07/22/19 07:33 Dose: 30 mg Tiotropium [place] (Spiriva Respimat 2.5 Mcg) 2 puff INH DAILY [facility] Last Admin: 07/22/19 08:57 Dose: 2 puff Vital Signs - 8 hr 07/22/19 07/22/19 07/22/19 08:58 08:59 11:11 Temperature 98.2 F Pulse Rate 80 88 Respiratory 15 20 Rate Blood Pressure 118/52 132/77 (mmHg) O2 Sat by Pulse 97 94 Oximetry 07/22/19 07/22/19 14:38 15:15 Temperature 97.6 F Pulse Rate 95 Respiratory 22 Rate Blood Pressure 158/88 (mmHg) O2 Sat by Pulse 97 Oximetry Oxygen Devices in Use Now: Nasal Cannula Appearance: Middle aged male sitting up in bed, NAD Eyes: No Scleral Icterus Ears/Nose/Mouth/Throat: Mucous Membranes Moist Respiratory: Symmetrical Chest Expansion and Respiratory Effort, Clear to Auscultation Cardiovascular: NL Sounds; No Murmurs; No JVD, RRR, - - 1+ LE edema Abdominal: NL Sounds; No Tenderness; No Distention Extremities: No Clubbing, Cyanosis Skin: No Nodules or Sclerosis Neurological: Alert and Oriented x 3 Result Diagrams: 07/18/19 05:26 07/21/19 06:59 Additional Lab and Data: Laboratory Results - last 24 hr 07/17/19 07/17/19 07/18/19 14:05 14:05 05:26 WBC 6.6 6.7 RBC 4.54 4.33 Hgb 12.4 L 11.7 L Hct 39 L 38 L MCV 87 87 MCH 27 27 MCHC 31 31 RDW 17 H 16 H Plt Count 155 156 MPV 8.1 8.3 Neut % (Auto) 90.7 71.4 Lymph % (Auto) 7.0 18.8 [place] % (Auto) 1.9 9.5 Eos % (Auto) 0.0 0.1 Baso % (Auto) 0.4 0.2 Absolute Neuts (auto) 5.9 4.8 Absolute Lymphs (auto) 0.5 L 1.3 Absolute Monos (auto) 0.1 0.6 Absolute Eos (auto) 0.0 0.0 Absolute Basos (auto) 0.0 0.0 Absolute Nucleated RBC 0.0 0.0 Nucleated RBC % 0.0 0.0 Patient Temperature ABG pH ABG pH (Temp Correct) ABG pCO2 ABG pCO2 (Temp Corrct ABG pO2 ABG pO2 (Temp Correct ABG HCO3 ABG O2 Saturation ABG Base Excess Respiration Rate O2 Delivery Device Ventilator Type Vent Mode FiO2 Inspiratory Time PEEP Pressure Support Pressure Control EPAP IPAP BiPAP Sodium 137 Potassium 4.5 Chloride 96 L Carbon Dioxide 36 H Anion Gap 5 BUN 20 Creatinine 0.90 Est GFR ( Amer) 108.1 Est GFR (Non-Af Amer) 89.3 BUN/Creatinine Ratio 22.2 H Glucose 173 H Calcium 9.2 07/18/19 07/18/19 05:26 09:05 WBC RBC Hgb Hct MCV MCH MCHC RDW Plt Count MPV Neut % (Auto) Lymph % (Auto) [place] % (Auto) Eos % (Auto) Baso % (Auto) Absolute Neuts (auto) Absolute Lymphs (auto) Absolute Monos (auto) Absolute Eos (auto) Absolute Basos (auto) Absolute Nucleated RBC Nucleated RBC % Patient Temperature Not Reportable ABG pH 7.33 L ABG pH (Temp Correct) Not Reportable ABG pCO2 68 H ABG pCO2 (Temp Corrct Not Reportable ABG pO2 99 ABG pO2 (Temp Correct Not Reportable ABG HCO3 30.7 ABG O2 Saturation 99.0 H ABG Base Excess 7.4 H Respiration Rate Not Reportable O2 Delivery Device 2 Ventilator Type Not Reportable Vent Mode Not Reportable FiO2 Not Reportable Inspiratory Time Not Reportable PEEP Not Reportable Pressure Support Not Reportable Pressure Control Not Reportable EPAP Not Reportable IPAP Not Reportable BiPAP Not Reportable Sodium 137 Potassium 4.1 Chloride 98 L Carbon Dioxide 35 H Anion Gap 4 BUN 17 Creatinine 0.77 Est GFR ( Amer) 129.4 Est GFR (Non-Af Amer) 106.9 BUN/Creatinine Ratio 22.1 H Glucose 105 H Calcium 9.1 Microbiology and Other Data: Microbiology 07/14/19 21:35 Blood Venous Aerobic Blood Culture - Preliminary No Growth Day 4 07/14/19 21:35 Blood Venous Anaerobic Blood Culture - Preliminary No Growth Day 4 07/14/19 21:12 Blood Venous Aerobic Blood Culture - Preliminary No Growth Day 4 07/14/19 21:12 Blood Venous Anaerobic Blood Culture - Preliminary No Growth Day 4 07/14/19 22:00 Urine Legionella Urinary Antigen - Final Negative Legionella Antigen 07/14/19 22:00 Urine Streptococcus pneumoniae Ag Screen - Final Negative S. pneumo Antigen 07/14/19 21:22 Nasal Nasal Screen MRSA (PCR) - Final Mrsa Not Detected Assess/Plan/Problems-Billing Mr Savage is a 49 yo male with a PMHx of severe COPD with chronic hypoxic respiratory failure (2-3L O2 NC for last year), 1/2 ppd smoker with 35 pack years, morbid obesity, uninsured who p/w SOB lower extremity edema and nonproductive cough and was diagnosed with acute on chronic hypercapnic respiratory failure with suspected COPD exacerbation w/ likely OHS and diastolic CHF contributing. - Patient Problems (1) Hypercapnic respiratory failure Current Visit: Yes Status: Acute Code(s): J96.92 - RESPIRATORY FAILURE, UNSPECIFIED WITH HYPERCAPNIA SNOMED Code(s): 320755235 Comment: Likely COPD exacerbation and possible diastolic CHF exacerbation leading to his acute on chronic hypercapnic respiratory failure. Prednisone is being tapered, taper to 20mg tomorrow. Lasix 40mg daily. Follow weights daily. He is on acetazolamide for ? contraction alkalosis stop today and repeat BMP tomorrow. He is felt to need NIPPV on d/c, obtain overnight oximetry on 2L. Awaiting insurance. (2) Acute respiratory failure with hypoxia Current Visit: Yes Status: Acute Code(s): J96.01 - ACUTE RESPIRATORY FAILURE WITH HYPOXIA SNOMED Code(s): 37951945 Comment: Resolved. (3) DVT (deep venous thrombosis) Current Visit: Yes Status: Acute Code(s): I82.409 - ACUTE EMBOLISM AND THOMBOS UNSP DEEP VN UNSP LOWER EXTREMITY SNOMED Code(s): 600480649 Comment: No evidence of DVT now. No need for anticoagulation. (4) Tobacco abuse Current Visit: Yes Status: Acute Code(s): Z72.0 - TOBACCO USE SNOMED Code( s): 890725414 Comment: Conitnue nicotine patch. Encourage smoking cessation. (5) Morbid obesity Current Visit: Yes Status: Acute Code(s): E66.01 - MORBID (SEVERE) OBESITY DUE TO EXCESS CALORIES SNOMED Code(s): 714776347 Comment: BMI is about 43.0 (6) DVT prophylaxis Current Visit: Yes Status: Acute Code(s): VIZ9125 - SNOMED Code(s): 785086592 Comment: SQ heparin (7) Full code status Current Visit: Yes Status: Acute Code(s): Z78.9 - OTHER SPECIFIED HEALTH STATUS SNOMED Code(s): 254744661 Status and Disposition: medicine inpatient. needing Bipap vs Trilogy for home but these would be contingent on medicaid insurance approval. CM working on it.
[2019-07-22] MEDS ORDERED: Nicotine* 4MG (FRUIT FLAVOR) GUM PO PRN (16:30)
[2019-07-22] MEDS: Nicotine Patch Removal NOTE PATCH OFF SCH (21:07)
[2019-07-23] MEDS: Heparin VIAL(*) 5000 UNITS/ML VIAL (FIVE THOUSAND) SUBCUT SCH (05:18)
[2019-07-23] MEDS: SPIRIVA Respimat* (tiotropium) 2.5 mcg/inh Inhaler INH SCH (07:42)
[2019-07-23] MEDS: Mometasone/Formoter 200/5 MDI INH SCH (07:42)
[2019-07-23] MEDS: amLODIPine TAB* 5 MG PO SCH (08:40)
[2019-07-23] MEDS: Nicotine PATCH 21 MG/24 HR* PATCH TRANSDERM SCH (08:41)
--- NOTE | 2019-07-23 08:45 | PN ---
Subjective Date of Service: 07/23/19 Interval History: Pt is feeling well. He states he will not wait any longer than this afternoon to hear if his insurance is going through. He denies any pain or SOB. Objective Active Medications: Acetaminophen (Tylenol Tab*) 650 mg PO Q4H PRN PRN Reason: PAIN - MILD Albuterol (Ventolin 2.5 Mg/3 Ml Neb.Lisa*) 2.5 mg INH Q2H PRN PRN Reason: SOB/WHEEZING Albuterol/Ipratropium (Duoneb (Albuterol 2.5 Mg/Ipratropium 0.5 Mg)) 1 neb INH [id number] AWAKE PRN PRN Reason: SHORTNESS OF BREATH Amlodipine Besylate (Norvasc Tab*) 5 mg PO DAILY [facility] Last Admin: 07/22/19 09:41 Dose: 5 mg Furosemide (Lasix Tab*) 40 mg PO DAILY [facility] Heparin Sodium (Porcine) (Heparin Vial(*)) 5,000 units SUBCUT Q8HR [facility] Last Admin: 07/23/19 05:18 Dose: 5,000 units Magnesium Oxide (Magox 400 Tab*) 400 mg PO DAILY@1200 [facility] Last Admin: 07/22/19 11:46 Dose: 400 mg Mometasone Furoate/Formoterol Fumar (Dulera 200/5 Mdi*) 2 puff INH BID [facility] Last Admin: 07/23/19 07:42 Dose: Not Given Nicotine (Nicotine Patch 21 Mg/24 Hr*) 1 patch TRANSDERM DAILY@0800 [facility] Last Admin: 07/22/19 07:33 Dose: 1 patch Nicotine Polacrilex (Nicotine Gum*) 4 mg PO Q2H PRN PRN Reason: CRAVING Last Admin: 07/22/19 16:56 Dose: 4 mg Ondansetron HCl (Zofran Inj*) 4 mg IV Q6H PRN PRN Reason: NAUSEA Pharmacy Profile Note (Nicotine Patch Removal Note*) 1 note PATCH OFF 2100 [facility] Last Admin: 07/22/19 21:07 Dose: 1 note Potassium Chloride (Klor Con Er Tab*) 20 meq PO DAILY [facility] Prednisone (Deltasone 10 Mg Tab) 20 mg PO DAILY [facility] Tiotropium [place] (Spiriva Respimat 2.5 Mcg) 2 puff INH DAILY [facility] Last Admin: 07/23/19 07:42 Dose: Not Given Vital Signs - 8 hr 07/23/19 07/23/19 03:15 07:15 Temperature 97.3 F 97.5 F Pulse Rate 72 80 Respiratory 18 20 Rate Blood Pressure 107/56 117/63 (mmHg) O2 Sat by Pulse 94 95 Oximetry Oxygen Devices in Use Now: Nasal Cannula Appearance: Middle aged obese male sitting up on the edge of the bed, NAD Eyes: No Scleral Icterus Ears/Nose/Mouth/Throat: Mucous Membranes Moist Respiratory: Symmetrical Chest Expansion and Respiratory Effort, Clear to Auscultation Cardiovascular: NL Sounds; No Murmurs; No JVD, RRR, - - 1+ LE edema Abdominal: NL Sounds; No Tenderness; No Distention Extremities: No Clubbing, Cyanosis Skin: No Nodules or Sclerosis Neurological: Alert and Oriented x 3 Result Diagrams: 07/18/19 05:26 07/21/19 06:59 Additional Lab and Data: Laboratory Results - last 24 hr 07/17/19 07/17/19 07/18/19 14:05 14:05 05:26 WBC 6.6 6.7 RBC 4.54 4.33 Hgb 12.4 L 11.7 L Hct 39 L 38 L MCV 87 87 MCH 27 27 MCHC 31 31 RDW 17 H 16 H Plt Count 155 156 MPV 8.1 8.3 Neut % (Auto) 90.7 71.4 Lymph % (Auto) 7.0 18.8 [place] % (Auto) 1.9 9.5 Eos % (Auto) 0.0 0.1 Baso % (Auto) 0.4 0.2 Absolute Neuts (auto) 5.9 4.8 Absolute Lymphs (auto) 0.5 L 1.3 Absolute Monos (auto) 0.1 0.6 Absolute Eos (auto) 0.0 0.0 Absolute Basos (auto) 0.0 0.0 Absolute Nucleated RBC 0.0 0.0 Nucleated RBC % 0.0 0.0 Patient Temperature ABG pH ABG pH (Temp Correct) ABG pCO2 ABG pCO2 (Temp Corrct ABG pO2 ABG pO2 (Temp Correct ABG HCO3 ABG O2 Saturation ABG Base Excess Respiration Rate O2 Delivery Device Ventilator Type Vent Mode FiO2 Inspiratory Time PEEP Pressure Support Pressure Control EPAP IPAP BiPAP Sodium 137 Potassium 4.5 Chloride 96 L Carbon Dioxide 36 H Anion Gap 5 BUN 20 Creatinine 0.90 Est GFR ( Amer) 108.1 Est GFR (Non-Af Amer) 89.3 BUN/Creatinine Ratio 22.2 H Glucose 173 H Calcium 9.2 07/18/19 07/18/19 05:26 09:05 WBC RBC Hgb Hct MCV MCH MCHC RDW Plt Count MPV Neut % (Auto) Lymph % (Auto) [place] % (Auto) Eos % (Auto) Baso % (Auto) Absolute Neuts (auto) Absolute Lymphs (auto) Absolute Monos (auto) Absolute Eos (auto) Absolute Basos (auto) Absolute Nucleated RBC Nucleated RBC % Patient Temperature Not Reportable ABG pH 7.33 L ABG pH (Temp Correct) Not Reportable ABG pCO2 68 H ABG pCO2 (Temp Corrct Not Reportable ABG pO2 99 ABG pO2 (Temp Correct Not Reportable ABG HCO3 30.7 ABG O2 Saturation 99.0 H ABG Base Excess 7.4 H Respiration Rate Not Reportable O2 Delivery Device 2 Ventilator Type Not Reportable Vent Mode Not Reportable FiO2 Not Reportable Inspiratory Time Not Reportable PEEP Not Reportable Pressure Support Not Reportable Pressure Control Not Reportable EPAP Not Reportable IPAP Not Reportable BiPAP Not Reportable Sodium 137 Potassium 4.1 Chloride 98 L Carbon Dioxide 35 H Anion Gap 4 BUN 17 Creatinine 0.77 Est GFR ( Amer) 129.4 Est GFR (Non-Af Amer) 106.9 BUN/Creatinine Ratio 22.1 H Glucose 105 H Calcium 9.1 Microbiology and Other Data: Microbiology 07/14/19 21:35 Blood Venous Aerobic Blood Culture - Preliminary No Growth Day 4 07/14/19 21:35 Blood Venous Anaerobic Blood Culture - Preliminary No Growth Day 4 07/14/19 21:12 Blood Venous Aerobic Blood Culture - Preliminary No Growth Day 4 07/14/19 21:12 Blood Venous Anaerobic Blood Culture - Preliminary No Growth Day 4 07/14/19 22:00 Urine Legionella Urinary Antigen - Final Negative Legionella Antigen 07/14/19 22:00 Urine Streptococcus pneumoniae Ag Screen - Final Negative S. pneumo Antigen 07/14/19 21:22 Nasal Nasal Screen MRSA (PCR) - Final Mrsa Not Detected Assess/Plan/Problems-Billing Mr Savage is a 49 yo male with a PMHx of severe COPD with chronic hypoxic respiratory failure (2-3L O2 NC for last year), 1/2 ppd smoker with 35 pack years, morbid obesity, uninsured who p/w SOB lower extremity edema and nonproductive cough and was diagnosed with acute on chronic hypercapnic respiratory failure with suspected COPD exacerbation w/ likely OHS and diastolic CHF contributing. - Patient Problems (1) Hypercapnic respiratory failure Current Visit: Yes Status: Acute Code(s): J96.92 - RESPIRATORY FAILURE, UNSPECIFIED WITH HYPERCAPNIA SNOMED Code(s): 558113035 Comment: Likely COPD exacerbation and possible diastolic CHF exacerbation leading to his acute on chronic hypercapnic respiratory failure. Prednisone is being tapered, taper to 10mg tomorrow. Lasix 40mg daily. Follow weights daily. BMP has not been obtained yet. He is felt to need NIPPV on d/c. Overnight oximetry shows the patient spent ~13min under 89% while on 2L O2. Still waiting for insurance to go through. (2) Acute respiratory failure with hypoxia Current Visit: Yes Status: Acute Code(s): J96.01 - ACUTE RESPIRATORY FAILURE WITH HYPOXIA SNOMED Code(s): 67857356 Comment: Resolved. (3) DVT (deep venous thrombosis) Current Visit: Yes Status: Acute Code(s): I82.409 - ACUTE EMBOLISM AND THOMBOS UNSP DEEP VN UNSP LOWER EXTREMITY SNOMED Code(s): 414457247 Comment: No evidence of DVT now. No need for anticoagulation. (4) Tobacco abuse Current Visit: Yes Status: Acute Code(s): Z72.0 - TOBACCO USE SNOMED Code( s): 323589744 Comment: Conitnue nicotine patch. Encourage smoking cessation. (5) Morbid obesity Current Visit: Yes Status: Acute Code(s): E66.01 - MORBID (SEVERE) OBESITY DUE TO EXCESS CALORIES SNOMED Code(s): 061509891 Comment: BMI is about 43.0 (6) DVT prophylaxis Current Visit: Yes Status: Acute Code(s): DPR1480 - SNOMED Code(s): 330235739 Comment: SQ heparin (7) Full code status Current Visit: Yes Status: Acute Code(s): Z78.9 - OTHER SPECIFIED HEALTH STATUS SNOMED Code(s): 324007164 Status and Disposition: medicine inpatient. needing Bipap vs Trilogy for home but these would be contingent on medicaid insurance approval. CM working on it.
[2019-07-23] MEDS ORDERED: Furosemide TAB* 40 MG PO SCH (09:00)
[2019-07-23] MEDS ORDERED: Potassium Chlor TAB* 20 MEQ TAB.ER PO SCH (09:00)
[2019-07-23 09:57] LABS: Calcium 8.7 mg/dL (8.6-10.3); EGFR Non-African American 96.7 (>60); Potassium 3.8 mmol/L (3.5-5.0)
--- NOTE | 2019-07-23 13:31 | PN ---
Progress Note - Progress Note Date of Service: 07/23/19 Note: The patient has been on BiPAP at night while hospitalized. He did not have complete improvement in his pCO2. His pCO2 remains elevated at 68 after treatment with BiPAP. He will benefit from a non-invasive home ventilator.
--- NOTE | 2019-07-23 13:37 | PN ---
Progress Note - Progress Note Date of Service: 07/23/19 Note: Pt is not wanting to stay to wait for insurance and home non-invasive ventilator authorization. He is leaving AMA.
[2019-07-23 13:41] VITALS: BP 118/70
[2019-07-23] MEDS: Magnesium Oxide TAB* 400 MG PO SCH (14:02)
== END 2019-07-23 14:30 | disposition left against medical advice (07) | DRG 189 ==
LOC: ED 13:32 → ICU 19:24 → MEDTELE 07-15 16:39
PROVIDERS: ADMIT Hospitalist; ATTEND Hospitalist
DX: J96.22 Acute and chronic respiratory failure with hypercapnia (principal); I50.33 Acute on chronic diastolic (congestive) heart failure; J44.1 Chronic obstructive pulmonary disease with (acute) exacerbation; Z68.41 Body mass index [BMI] 40.0-44.9, adult; J96.21 Acute and chronic respiratory failure with hypoxia; Z53.29 Procedure and treatment not carried out because of patient's decision for other reasons; F17.210 Nicotine dependence, cigarettes, uncomplicated; I11.0 Hypertensive heart disease with heart failure; E66.01 Morbid (severe) obesity due to excess calories; Z88.8 Allergy status to other drugs, medicaments and biological substances; Z86.718 Personal history of other venous thrombosis and embolism; Z79.899 Other long term (current) drug therapy; Z79.51 Long term (current) use of inhaled steroids; Z99.81 Dependence on supplemental oxygen
CPT/HCPCS: 36415; 36600; 71045; 80048; 80053; 81003; 82803; 83605; 83735; 83880; 84100; 84484; 85025; 85379; 85610; 85730; 86140; 87040; 87641; 87899; 90686; 93005; 93306; 93970; 94640; 94660; 96374; 99284; 99406; A9270-GY; J0456; J0692; J0696; J1644; J1940; J2930; J3535; J7512

== ENCOUNTER 2019-08-17 17:48 | Inpatient (IN) | payer MEDICAID ==
[2019-08-17] MEDS ORDERED: Albuterol/Ipratropium NEB.SOL* Albuterol 2.5 MG/Ipratropium 0.5 MG 3 ML INH ONE ×2 (18:05→20:07)
[2019-08-17] MEDS ORDERED: methylPREDNISolone 125 MG* 2 ML VIAL IV ONE (18:08)
--- NOTE | 2019-08-17 18:09 | ED ---
Shortness of Breath - HPI Summary HPI Summary: Patient is a 49 y/o M presenting to the ED for a chief complaint of shortness of breath for the last 2 weeks. Patient is present with his . Patient also notes a cough and bilateral LE edema that is unchanged from a prior visit to [facility]. He denies fever or nasal congestion. On arrival to [facility], patient had an oxygen saturation in the 60s. Oxygen improves his shortness of breath, but no aggravating factors are reported. PMHx is significant for COPD. During his last visit to [facility] 3 weeks ago, patient had similar symptoms. He last smoked cigarettes 3 weeks ago after being counselled on smoking cessation. Patient uses oxygen at home. Dr. Maral Blake at [facility] is his PCP. - History of Current Complaint Chief Complaint: EDShortnessOfBreath Hx Obtained From: Patient Onset/Duration: Sudden Onset, Lasting Weeks - 2 weeks, Still Present Timing: Constant Current Severity: Moderate Dyspnea At: Rest Aggravating Factors: Nothing Alleviating Factors: Oxygen Associated Signs & Symptoms: Cough (Nonproductive), Edema - Bilateral LE, unchanged Related History: Similar Episode - 3 weeks ago - Allergy/Home Medications Allergies/Adverse Reactions: Allergies Allergy/AdvReac Type Severity Reaction Status Date / Time prochlorperazine Allergy Muscle Ache Verified 08/17/19 17:54 [From Compazine] Home Medications: Home Medications Mometasone/Formoter 200/5 MDI* [Dulera 200/5 MDI*] 2 puff INH BID #1 mdi [Rx Confirmed 08/17/19] Varenicline (NF) [Chantix 1 MG TAB (NF)] 1 mg PO BID #60 tab 09/03/18 [Rx Confirmed 08/17/19] amLODIPine TAB* [Norvasc 5 mg TAB*] 5 mg PO DAILY #30 tab 09/03/18 [Rx Confirmed 08/17/19] Albuterol HFA INHALER* [Ventolin HFA Inhaler*] 2 puff INH Q4H PRN #1 mdi [Rx Confirmed 08/17/19] Furosemide TAB* [Lasix TAB*] 40 mg PO DAILY #30 tab 07/23/19 [Rx Confirmed 08/16] Magnesium Oxide TAB* [MagOx 400 TAB*] 400 mg PO DAILY@1200 #30 tab 02/13/20 [Rx Confirmed 08/17/19] Nicotine PATCH 21 MG/24 HR* 1 patch TRANSDERM DAILY@0800 #14 patch 07/23/19 [Rx Confirmed 08/17/19] Potassium Chlor TAB* [Potassium Chlor TAB 20 MEQ*] 20 meq PO DAILY #30 tab.er [Rx Confirmed 08/17/19] predniSONE 10 mg TAB [Deltasone 10 MG TAB*] 10 mg PO DAILY #2 tab 07/23/19 [Rx Confirmed 08/17/19] PMH/Surg Hx/FS Hx/Imm Hx Previously Healthy: Yes Endocrine/Hematology History: Denies: Hx Diabetes Cardiovascular History: Reports: Other Cardiovascular Problems/Disorders - Chest pain with exertion Denies: Hx Hypertension Respiratory History: Reports: Hx Chronic Obstructive Pulmonary Disease (COPD) - On 2L at home x1year Denies: Hx Asthma Sensory History: Reports: Hx Contacts or Glasses Denies: Hx Legally Blind, Hx Deafness, Hx Hearing Aid Opthamlomology History: Reports: Hx Contacts or Glasses Denies: Hx Legally Blind EENT History: Denies: Hx Deafness - Surgical History Surgical History: None Surgery Procedure, Year, and Place: none reported Infectious Disease History: No Infectious Disease History: Denies: Traveled Outside the [place] in Last 30 Days - Family History Known Family History: Negative: Hypertension, Diabetes - Social History Occupation: Employed Full-time Lives: With Family Alcohol Use: Rare Hx Substance Use: No Substance Use Type: Reports: None Hx Tobacco Use: Yes Smoking Status (MU): Former Smoker Type: Cigarettes Amount Used/How Often: 1/2PPD Length of Time of Smoking/Using Tobacco: 25 years Have You Smoked in the Last Year: Yes Review of Systems Negative: Fever Negative: Other - Negative nasal congestion Positive: Shortness Of Breath, Cough Positive: Edema - Bilateral LE, unchanged All Other Systems Reviewed And Are Negative: Yes Physical Exam - Summary Physical Exam Summary: Appearance: The patient is well-nourished in no acute distress and in no acute pain. Skin: The skin is warm and dry, and skin color reflects adequate perfusion. HEENT: The head is normocephalic and atraumatic. The pupils are equal and reactive. The conjunctivae are clear and without drainage. Nares are patent and without drainage. Mouth reveals moist mucous membranes, and the throat is without erythema and exudate. The external ears are intact. The ear canals are patent and without drainage. The tympanic membranes are intact. Neck: The neck is supple with full range of motion and non-tender. There are no carotid bruits. There is no neck vein distension. Respiratory: Chest is non-tender. Breath sounds are decreased and equal. Expiratory wheezes. Cardiovascular: Heart is regular rate and rhythm. There is no murmur or rub auscultated. There is no peripheral edema and pulses are symmetrical and equal. Abdomen: The abdomen is soft and non-tender. There are normal bowel sounds heard in all four quadrants and there is no organomegaly palpated. Musculoskeletal: There is no back tenderness noted. Extremities are non-tender with full range of motion. There is good capillary refill. There is no peripheral edema or calf tenderness elicited. Neurological: Patient is alert and oriented to person, place and time. The patient has symmetrical motor strength in all four extremities. Cranial nerves are grossly intact. Deep tendon reflexes are symmetrical and equal in all four extremities. Psychiatric: The patient has an appropriate affect and does not exhibit any anxiety or depression. Triage Information Reviewed: Yes Vital Signs On Initial Exam: Initial Vitals Temp Pulse Resp BP Pulse Ox 99.1 F 97 24 143/77 74 08/17/19 17:54 08/17/19 17:54 08/17/19 17:54 08/17/19 17:54 08/17/19 17:54 Vital Signs Reviewed: Yes Procedures - Sedation Patient Received Moderate/Deep Sedation with Procedure: No Diagnostics - Vital Signs Vital Signs Temp Pulse Resp BP Pulse Ox 08/17/19 17:54 99.1 F 97 24 143/77 74 - Laboratory Result Diagrams: 08/17/19 18:17 08/17/19 18:18 Lab Statement: Any lab studies that have been ordered have been reviewed, and results considered in the medical decision making process. - Radiology Chest X-ray Radiology Interpretation Completed By: ED Physician Summary of Radiographic Findings: Chest X-ray IMPRESSION: bilateral opacifications that is unchanged from previous. Reviewed and interpreted by Dr. Cortes, pending official radiology report. - EKG 18:22 Cardiac Rate: NL - 89 BPM EKG Rhythm: Sinus Rhythm ST Segment: Normal Ectopy: None Summary of EKG Findings: EKG at 18:22 shows normal sinus rhythm with 89 BPM, normal ST, no ectopy, no STEMI. Reviewed and interpreted by Dr. Cortes. Re-Evaluation - Re-Evaluation First Eval Re-Evaluation Time: 20:55 Change: Unchanged Comment: At 20:55, patient is amenable to admission. Course/Dx - Course Course Of Treatment: Mr. Savage was seen here several weeks ago with a new diagnosis of COPD. He has oxygen at home but has been getting more and more short of breath in the last couple of days. He presented with respiratory insufficiency which improved some with DuoNebs and Solu-Medrol but he was not significantly controlled builder go home. I recommended she stay overnight and allow the steroids have a chance to kick in. - Diagnoses Provider Diagnoses: COPD exacerbation - Physician Notifications Discussed Care of Patient With: Baltazar Ward - At 21:00, Dr. Baltazar Ward reviewed the patients case and agrees to admit the patient to [facility] with a diagnosis of COPD exacerbation. Time Discussed With Above Provider: 21:00 Instructed by Provider To: Admit As Inpatient Discharge ED - Sign-Out/Discharge Documenting (check all that apply): Patient Departure - Admit - Discharge Plan Condition: Stable Disposition: ADMITTED TO [facility] Referrals: Maral Blake MD [Primary Care Provider] - - Billing Disposition and Condition Condition: STABLE Disposition: Admitted to [facility] - Attestation Statements Document Initiated by Indira: Yes Documenting Scribe: Jasmine Hoover Provider For Whom Indira is Documenting (Include Credential): Alejandro Cortes MD Scribe Attestation: I, Jasmine Hoover, scribed for Alejandro Cortes MD on 08/17/19 at 2144. Scribe Documentation Reviewed: Yes Provider Attestation: The documentation as recorded by the Jasmine harman accurately reflects the service I personally performed and the decisions made by me, Alejandro Cortes MD Status of Scribbhumi Document: Viewed
[2019-08-17 18:48] LABS: ABS Eosinophils 0.2 10^3/ul (0-0.6); ABS Lymphocytes 0.9 10^3/ul (1.0-4.8); ABS Monocytes 0.5 10^3/ul (0-0.8); ABS Neutrophils 1.6 10^3/ul (1.5-7.7); Eosinophil % 5.7 %; Hematocrit 39 % (42-52); Hemoglobin 12.3 g/dL (14.0-18.0); Lymphocyte % 29.3 %; Mean Corpuscular HGB Conc 32 g/dL (31-36); Mean Corpuscular Hemoglobin 27 pg (27-31); Mean Corpuscular Volume 85 fL (80-94); Mean Platelet Volume 7.5 fL (7.4-10.4); Nucleated Red Blood Cells % 0.2; Platelet Count 149 10^3/uL (150-450); Red Blood Count 4.61 10^6 /uL (4.18-5.48); Red Cell Distribution Width 16 % (10-15); White Blood Count 3.1 10^3/uL (3.5-10.8)
[2019-08-17 19:03] LABS: Albumin/Globulin Ratio 1.3 (1-3); BUN/Creatinine Ratio 17.4 (8-20); Calcium 9.5 mg/dL (8.6-10.3); EGFR African American 146.9 (>60); EGFR Non-African American 121.4 (>60); Globulin 3.2 g/dL (2-4); Potassium 4.3 mmol/L (3.5-5.0); Total Bilirubin 0.3 mg/dL (0.2-1.0); Total Protein 7.2 g/dL (6.4-8.9)
[2019-08-17 19:05] LABS: Troponin I 0.01 ng/mL (<0.03)
[2019-08-17] MEDS ORDERED: Acetaminophen TAB* 325 MG PO ONE (20:10)
[2019-08-17] MEDS ORDERED: Albuterol HFA INHALER* 8 gm MDI INH PRN (21:06)
[2019-08-17] MEDS ORDERED: Ondansetron INJ* 2 MG/ML VIAL IV PRN (21:11)
[2019-08-17] MEDS ORDERED: Al Hydrox/Mg Hydrox/Simet LIQ* 30 ML UDC PO PRN (21:11)
[2019-08-17] MEDS ORDERED: Furosemide IV* 10 MG/ML VIAL (40 MG) IV ONE (21:44)
[2019-08-17] MEDS: Albuterol/Ipratropium NEB.SOL* Albuterol 2.5 MG/Ipratropium 0.5 MG 3 ML INH SCH (22:43)
[2019-08-17] MEDS ORDERED: Azithromycin 500 mg/250 ml NS 500 MG/250 ML BAG IVPB ONE (22:55)
[2019-08-18] MEDS: Enoxaparin(*) 40 MG/0.4 ML SYR SUBCUT SCH ×2 (00:37→21:56)
[2019-08-18] MEDS: Azithromycin 500 mg/250 ml NS 500 MG/250 ML BAG IVPB SCH (00:37)
[2019-08-18] MEDS: methylPREDNISolone 125 MG* 2 ML VIAL IV SCH ×3 (03:12→18:16)
--- NOTE | 2019-08-18 03:13 | HP ---
HISTORY AND PHYSICAL: DATE OF ADMISSION: 08/17/19 HISTORY OF PRESENT ILLNESS: The patient is a 49-year-old male, presenting to the ED with a chief complaint of shortness of breath for the past 2 weeks, also bilateral leg swelling. The patient has a known history of COPD and on home oxygen of 3 L at home. He noticed progressive worsening of shortness of breath over the past 2 weeks. A new onset of cough, which is nonproductive and increase in bilateral leg swelling. The patient admitted that there is no fever, no chest pain. On arrival in the ED, his saturation was in the 60s and oxygen improves his shortness of breath. The patient admitted that he ran out of insurance and has no medication, so he has not been taking his inhaler and his blood pressure medication as well as congestive heart failure of which he takes Lasix 40 mg p.o. daily. He stated all his medications were finished about a week ago and he had no insurance to refill them. The patient admitted that he had been a smoker since he was 15 years 1 pack per day, but due to his current condition, he was counseled on smoking cessation and he said that he last smoked cigarette was about 3 weeks ago. He has been in and out of emergency room ranging from [place] to [facility]. He denies any headache, myalgias, or GI symptoms. He denied chest pain as already stated. PAST MEDICAL HISTORY: COPD, on home oxygen; hypertension; leg swelling of which he is taking Lasix. He also stated that it is also related to his heart, so I suspect he is having history of congestive heart failure. Actively smoking , but said he had quit 3 weeks ago. Obesity. PAST SURGICAL HISTORY: He denied any past surgical history. MEDICATIONS: He is at home: 1. Dulera 2 puffs b.i.d. 2. Chantix 1 mg tablet p.o. b.i.d. 3. Amlodipine 5 mg p.o. daily. 4. Albuterol inhaler 2 puffs q.4 as needed for shortness of breath and wheezing. 5. Lasix 40 mg daily. 6. Magnesium oxide 400 mg daily. 7. Nicotine patch. 8. Potassium chloride 20 mEq daily. 9. Prednisone 10 mg daily. ALLERGIES: PROCHLORPERAZINE, muscle ache. FAMILY HISTORY: Said mom had COPD, she is also a smoker and diabetes mellitus. Dad, history of diabetes mellitus, hypertension, and hyperlipidemia. SOCIAL HISTORY: The patient is a nonsmoker, started when he was 15 one pack per day, said he quitted 3 weeks ago. Occasional alcohol usage. Denied use of illicit drugs. REVIEW OF SYSTEMS: There was no documented fever. There is no significant weight change. There was no double vision. There was no ear discharge. He denied having any rhinorrhea. No sore throat. No thyroid enlargement. Denied having any chest pain. Positive orthopnea. There is no abdominal pain. No nausea. No vomiting. No dysuria. No frequency. There is no seizure. No loss of consciousness. No pruritus. Positive cough. Positive shortness of breath and positive wheezing. Review of 14 systems completed, all others negative. PHYSICAL EXAMINATION GENERAL: Lying in bed 45 degrees but awake, in respiratory distress with supplemental oxygen and is speaking in short sentences. VITAL SIGNS: Temperature 99.1, pulse 97, respiratory rate 24, BP 143/77, pulse oximetry on arrival was 74. Repeated vitals at 2240 hours, temperature 97.9, heart rate 91, respiratory rate 18, oxygen saturation 94%, blood pressure 186/ 91. HEENT: Oropharynx is dry, but clear. Extraocular muscles are intact. Pupils equal, round, reactive. NECK: No cervical or supraclavicular lymphadenopathy. Neck is supple. LUNGS: His lungs are diffusely diminished with diffuse crackles and end expiratory wheeze with diminished air entry. CARDIOVASCULAR: Heart is regular rate and rhythm. There is no murmur or rub auscultated. There is no friction. S1 and S2 heard. Peripheral edema 2+. ABDOMEN: The abdomen is soft and nontender. There are normal bowel sounds heard in all 4 quadrants. No organomegaly palpated. No guarding. Nondistended. Obese. MUSCULOSKELETAL: There is no back tenderness noted. Extremities are nontender with full range of motion. There is no calf tenderness elicited. Positive peripheral edema. NEUROLOGICAL: The patient is alert and oriented to person, place, and time. The patient has symmetrical motor strength in all 4 extremities. Cranial nerves II through XII grossly intact. Deep tendon reflexes are symmetrical and equal in all 4 extremities. PSYCHIATRIC: The patient has an appropriate affect and normal mood. Does not exhibit any anxiety or depression. DIAGNOSTIC STUDIES/LAB DATA: EKG interpretation: Normal sinus rhythm. Normal P axis. Ventricular rate 99. No significant ST elevation. Chest x-ray has not been officially read, but I did not notice any radiographic evidence of acute cardiopulmonary abnormality. The heart and mediastinum is with normal size and contour. The lungs are grossly clear. No evidence of pleural effusion, but we will await official read. ASSESSMENT AND PLAN: George Savage is a 49-year-old male with chronic obstructive pulmonary disease exacerbation, shortness of breath, bilateral leg swelling, hypertension, who came into the ED with worsening shortness of breath , cough and wheezing. He will be admitted to the medical floor. 1. Chronic obstructive pulmonary disease exacerbation. The patient will continue on DuoNeb as scheduled for shortness of breath and for wheezing every 4 hours until improvement. I will continue the patient on Solu-Medrol IV 60 mg q.8 and will review. The patient came in with low-grade fever of 99.1. I will IV azithromycin 500 mg q.24 hours. The patient to continue on oxygen therapy to maintain SpO2 at greater than 92% and wean as needed. The patient to discuss with insurance company as to reinstate his insurance, so that he can get his medication when discharged. ABG was ordered, still awaiting the report. 2. Hypertension. We will continue his home meds amlodipine 5 mg daily with holding parameters. 3. Obesity. The patient counseled on diet and exercise. 4. Nicotine dependence. The patient quit smoking 3 weeks ago, but will continue Chantix and nicotine patch as needed. 5. DVT prophylaxis with Lovenox. The patient will remain full code at this time. 6. Leg swelling and congestive heart failure. I was start patient on IV Lasix 40 mg daily. Monitor kidney function. Follow up BMPs. Replete electrolytes as needed. Social work consult to discuss insurance and obtaining his home medications before discharge. 7. Diet. Cardiac diet. TIME SPENT: On the admission was greater than 50 minutes, greater than half of that time was spent [id number] with the patient obtaining my history and physical, the other half of the time was spent going over the plan of care with the patient and implementing plan of care. Thank you very much for the opportunity to partake in the healthcare need of this sadiq gentleman. [id number]/[facility] #: [id number] OTTO
[2019-08-18 04:37] LABS: ABS Lymphocytes 0.5 10^3/ul (1.0-4.8); ABS Monocytes 0.1 10^3/ul (0-0.8); ABS Neutrophils 2.4 10^3/ul (1.5-7.7); Hematocrit 39 % (42-52); Hemoglobin 12.2 g/dL (14.0-18.0); Lymphocyte % 15.3 %; Mean Corpuscular HGB Conc 32 g/dL (31-36); Mean Corpuscular Hemoglobin 27 pg (27-31); Mean Corpuscular Volume 86 fL (80-94); Mean Platelet Volume 7.6 fL (7.4-10.4); Platelet Count 146 10^3/uL (150-450); Red Blood Count 4.49 10^6 /uL (4.18-5.48); Red Cell Distribution Width 16 % (10-15)
[2019-08-18 04:54] LABS: BUN/Creatinine Ratio 16.9 (8-20); Calcium 9.4 mg/dL (8.6-10.3); EGFR African American 142.1 (>60); EGFR Non-African American 117.4 (>60); Magnesium 1.6 mg/dL (1.9-2.7); Potassium 4.7 mmol/L (3.5-5.0)
[2019-08-18] MEDS: Albuterol/Ipratropium NEB.SOL* Albuterol 2.5 MG/Ipratropium 0.5 MG 3 ML INH SCH ×6 (05:42→23:28)
[2019-08-18] MEDS ORDERED: Magnesium Sulfate 2 GM IV (Premix) IVPB ONE (06:00)
[2019-08-18] MEDS: Mometasone/Formoter 200/5 MDI INH SCH ×2 (08:24→20:13)
[2019-08-18] MEDS: amLODIPine TAB* 5 MG PO SCH (08:31)
[2019-08-18] MEDS: Furosemide IV* 10 MG/ML VIAL (40 MG) IV SCH (08:32)
[2019-08-18] MEDS: Docusate CAP* 100 MG PO SCH ×2 (08:32→21:56)
[2019-08-18] MEDS ORDERED: Azithromycin 500 mg/250 ml NS 500 MG/250 ML BAG IVPB ONE (09:00)
[2019-08-18] MEDS: Famotidine TAB* 20 MG PO SCH ×2 (10:13→21:56)
[2019-08-18] MEDS: Magnesium Oxide TAB* 400 MG PO SCH (12:36)
--- NOTE | 2019-08-18 13:55 | PN ---
<Nilda Fuller - Last Filed: 08/18/19 13:49> Date of Service: 08/18/19 Critical Care Services: No overnight events. 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 He was on home O2 3L day and night, planning to get a Bipap when he came in. He also complained of bilateral leg swelling after running out of lasix 2 weeks ago. Vital Signs: Temp Pulse Resp BP SpO2 FiO2 99 F 105 30 151/96 87 40 08/18/19 11:38 08/18/19 13:02 08/18/19 13:02 08/18/19 13:02 08/18/19 13:02 08/17 01:44 Physical Exam: Gen: awake,alert, NAD HEENT:normocephalic, atraumatic Lungs: clear on auscultation in general, exp wheezes still heard but not diffuse Cardiac: normal S1, S2, no murmur Abdomen: obese habitus, non tender, bowel sound active.f Extremities: bilateral pedal edema up to shins. Neuro: alert& oriented x4. no neurological deficit Fluid Balance (Past 24 Hours): I= O= Net Intake & Output 08/16/19 08/17/19 08/18/19 08/19/19 06:59 06:59 06:59 06:59 Intake Total 809 840 Output Total 1625 1075 Balance -816 -235 Weight 117.571 kg Intake: IV Fluids 25 NS 25 IVPB 304 Abx 271 Mag 33 Oral 480 840 Output: Urine 1625 1075 Other: Date of Last Bowel 08/17/2019 Movement # Voids 3 Labs: Laboratory Results - last 24 hr 08/17/19 08/17/19 08/17/19 18:17 18:17 18:17 WBC 3.1 L RBC 4.61 Hgb 12.3 L Hct 39 L MCV 85 MCH 27 MCHC 32 RDW 16 H Plt Count 149 L MPV 7.5 Neut % (Auto) 49.5 Lymph % (Auto) 29.3 [place] % (Auto) 15.3 Eos % (Auto) 5.7 Baso % (Auto) 0.2 Absolute Neuts (auto) 1.6 Absolute Lymphs (auto) 0.9 L Absolute Monos (auto) 0.5 Absolute Eos (auto) 0.2 Absolute Basos (auto) 0.0 Absolute Nucleated RBC 0.0 Nucleated RBC % 0.2 Patient Temperature ABG pH ABG pH (Temp Correct) ABG pCO2 ABG pCO2 (Temp Corrct ABG pO2 ABG pO2 (Temp Correct ABG HCO3 ABG O2 Saturation ABG Base Excess Respiration Rate O2 Delivery Device Ventilator Type Vent Mode FiO2 Inspiratory Time PEEP Pressure Support Pressure Control EPAP IPAP BiPAP Sodium Potassium Chloride Carbon Dioxide Anion Gap BUN Creatinine Est GFR ( Amer) Est GFR (Non-Af Amer) BUN/Creatinine Ratio Glucose Lactic Acid 0.8 Calcium Magnesium Total Bilirubin AST ALT Alkaline Phosphatase Troponin I B-Natriuretic Peptide 17 Total Protein Albumin Globulin Albumin/Globulin Ratio 08/17/19 08/17/19 08/18/19 18:18 22:45 00:32 WBC RBC Hgb Hct MCV MCH MCHC RDW Plt Count MPV Neut % (Auto) Lymph % (Auto) [place] % (Auto) Eos % (Auto) Baso % (Auto) Absolute Neuts (auto) Absolute Lymphs (auto) Absolute Monos (auto) Absolute Eos (auto) Absolute Basos (auto) Absolute Nucleated RBC Nucleated RBC % Patient Temperature Not Reportable ABG pH 7.29 L 7.34 L ABG pH (Temp Correct) Not Reportable ABG pCO2 102 H* 90 H* ABG pCO2 (Temp Corrct Not Reportable ABG pO2 76 L TNP ABG pO2 (Temp Correct Not Reportable TNP ABG HCO3 38.3 H 38.8 H ABG O2 Saturation 96.7 96.8 ABG Base Excess 17.2 H 17.9 H Respiration Rate Not Reportable O2 Delivery Device oxymask Ventilator Type Not Reportable Vent Mode Not Reportable FiO2 Not Reportable Inspiratory Time Not Reportable PEEP Not Reportable Pressure Support Not Reportable Pressure Control Not Reportable EPAP Not Reportable IPAP Not Reportable BiPAP Not Reportable Sodium 138 Potassium 4.3 Chloride 92 L Carbon Dioxide 45 H* Anion Gap 1 L BUN 12 Creatinine 0.69 Est GFR ( Amer) 146.9 Est GFR (Non-Af Amer) 121.4 BUN/Creatinine Ratio 17.4 Glucose 120 H Lactic Acid Calcium 9.5 Magnesium Total Bilirubin 0.30 AST 22 ALT 24 Alkaline Phosphatase 80 Troponin I 0.01 B-Natriuretic Peptide Total Protein 7.2 Albumin 4.0 Globulin 3.2 Albumin/Globulin Ratio 1.3 08/18/19 08/18/19 04:20 04:20 WBC 3.0 L RBC 4.49 Hgb 12.2 L Hct 39 L MCV 86 MCH 27 MCHC 32 RDW 16 H Plt Count 146 L MPV 7.6 Neut % (Auto) 81.9 Lymph % (Auto) 15.3 [place] % (Auto) 2.7 Eos % (Auto) 0.0 Baso % (Auto) 0.1 Absolute Neuts (auto) 2.4 Absolute Lymphs (auto) 0.5 L Absolute Monos (auto) 0.1 Absolute Eos (auto) 0.0 Absolute Basos (auto) 0.0 Absolute Nucleated RBC 0.0 Nucleated RBC % 0.0 Patient Temperature ABG pH ABG pH (Temp Correct) ABG pCO2 ABG pCO2 (Temp Corrct ABG pO2 ABG pO2 (Temp Correct ABG HCO3 ABG O2 Saturation ABG Base Excess Respiration Rate O2 Delivery Device Ventilator Type Vent Mode FiO2 Inspiratory Time PEEP Pressure Support Pressure Control EPAP IPAP BiPAP Sodium 139 Potassium 4.7 Chloride 91 L Carbon Dioxide 45 H* Anion Gap 3 BUN 12 Creatinine 0.71 Est GFR ( Amer) 142.1 Est GFR (Non-Af Amer) 117.4 BUN/Creatinine Ratio 16.9 Glucose 142 H Lactic Acid Calcium 9.4 Magnesium 1.6 L Total Bilirubin AST ALT Alkaline Phosphatase Troponin I B-Natriuretic Peptide Total Protein Albumin Globulin Albumin/Globulin Ratio Nutrition: Heart healthy diet Impression: George Savage is a 49y/p male with history of COPD on home O2 3L, CHF, HTN, obesity, active tobacco user, presented with progressive worsening SOB, found to have hypoxic hypercapnic respiratory failure requiring Bipap after running out of med for 2 weeks. . Plan: Neuro-alert, oreiented [facility]- convert oral lasix to iv 40mg lasix; watch i/o restart home bp med amlodipine for HTN Resp-1) COPD exacerbation due to medication discontinuation -Wean Fio2 to keep sat 88-92, keep nasal canula during daytime -decrease methylpred to 60mg q8h -Bronchodilators PRN 2) possible pneumonia- patient was covered with iv azithromycin on Saturday with low grade fever 99, no more fever spike ID- 1) no overt signs and symptoms of infection GI- -Nutrition: heart healthy diet. -GI prophylaxis iv fafmotidine Renal- - negative balance - will continue iv lasix 40mg to off load, home dose oral 40mg - replaced Mg Heme- Pancytopenia (mainly new leukopenia and thrombocytopenia) - no containdicating medication currently - will repeat tomorrow to see resolution. - consider doing more workup including vitb12, folate if pancytopenia not resolving Musculsk- ambulate as tolerated. Wounds- none Nutrition- oral intake Smoking cessation- start nicotine patch DVT prophylaxis: Lovenox GI prophylaxis: iv famotidine Central Line: no Arterial Line: no Shepherd Cathetor: no Dispo: transfer patient out of ICU if patient is tolerating nasal cannula well by this afternoon Critical Care Time: 30min <Reddy Catalan - Last Filed: 08/18/19 15:39> Vital Signs: Temp Pulse Resp BP SpO2 FiO2 99 F 104 23 153/78 94 40 08/18/19 11:38 08/18/19 15:30 08/18/19 15:30 08/18/19 14:31 08/18/19 15:30 08/17 01:44 Physical Exam: Gen: HEENT: Lungs: Cardiac: Abdomen: Extremities: Neuro: Fluid Balance (Past 24 Hours): I= O= Net Intake & Output 08/16/19 08/17/19 08/18/19 08/19/19 06:59 06:59 06:59 06:59 Intake Total 809 1320 Output Total 1625 1075 Balance -816 245 Weight 117.571 kg Intake: IV Fluids 25 NS 25 IVPB 304 Abx 271 Mag 33 Oral 480 1320 Output: Urine 1625 1075 Other: Date of Last Bowel 08/17/2019 Movement # Voids 3 Labs: Laboratory Results - last 24 hr 08/17/19 08/17/19 08/17/19 18:17 18:17 18:17 WBC 3.1 L RBC 4.61 Hgb 12.3 L Hct 39 L MCV 85 MCH 27 MCHC 32 RDW 16 H Plt Count 149 L MPV 7.5 Neut % (Auto) 49.5 Lymph % (Auto) 29.3 [place] % (Auto) 15.3 Eos % (Auto) 5.7 Baso % (Auto) 0.2 Absolute Neuts (auto) 1.6 Absolute Lymphs (auto) 0.9 L Absolute Monos (auto) 0.5 Absolute Eos (auto) 0.2 Absolute Basos (auto) 0.0 Absolute Nucleated RBC 0.0 Nucleated RBC % 0.2 Patient Temperature ABG pH ABG pH (Temp Correct) ABG pCO2 ABG pCO2 (Temp Corrct ABG pO2 ABG pO2 (Temp Correct ABG HCO3 ABG O2 Saturation ABG Base Excess Respiration Rate O2 Delivery Device Ventilator Type Vent Mode FiO2 Inspiratory Time PEEP Pressure Support Pressure Control EPAP IPAP BiPAP Sodium Potassium Chloride Carbon Dioxide Anion Gap BUN Creatinine Est GFR ( Amer) Est GFR (Non-Af Amer) BUN/Creatinine Ratio Glucose Lactic Acid 0.8 Calcium Magnesium Total Bilirubin AST ALT Alkaline Phosphatase Troponin I B-Natriuretic Peptide 17 Total Protein Albumin Globulin Albumin/Globulin Ratio 08/17/19 08/17/19 08/18/19 18:18 22:45 00:32 WBC RBC Hgb Hct MCV MCH MCHC RDW Plt Count MPV Neut % (Auto) Lymph % (Auto) [place] % (Auto) Eos % (Auto) Baso % (Auto) Absolute Neuts (auto) Absolute Lymphs (auto) Absolute Monos (auto) Absolute Eos (auto) Absolute Basos (auto) Absolute Nucleated RBC Nucleated RBC % Patient Temperature Not Reportable ABG pH 7.29 L 7.34 L ABG pH (Temp Correct) Not Reportable ABG pCO2 102 H* 90 H* ABG pCO2 (Temp Corrct Not Reportable ABG pO2 76 L TNP ABG pO2 (Temp Correct Not Reportable TNP ABG HCO3 38.3 H 38.8 H ABG O2 Saturation 96.7 96.8 ABG Base Excess 17.2 H 17.9 H Respiration Rate Not Reportable O2 Delivery Device oxymask Ventilator Type Not Reportable Vent Mode Not Reportable FiO2 Not Reportable Inspiratory Time Not Reportable PEEP Not Reportable Pressure Support Not Reportable Pressure Control Not Reportable EPAP Not Reportable IPAP Not Reportable BiPAP Not Reportable Sodium 138 Potassium 4.3 Chloride 92 L Carbon Dioxide 45 H* Anion Gap 1 L BUN 12 Creatinine 0.69 Est GFR ( Amer) 146.9 Est GFR (Non-Af Amer) 121.4 BUN/Creatinine Ratio 17.4 Glucose 120 H Lactic Acid Calcium 9.5 Magnesium Total Bilirubin 0.30 AST 22 ALT 24 Alkaline Phosphatase 80 Troponin I 0.01 B-Natriuretic Peptide Total Protein 7.2 Albumin 4.0 Globulin 3.2 Albumin/Globulin Ratio 1.3 08/18/19 08/18/19 04:20 04:20 WBC 3.0 L RBC 4.49 Hgb 12.2 L Hct 39 L MCV 86 MCH 27 MCHC 32 RDW 16 H Plt Count 146 L MPV 7.6 Neut % (Auto) 81.9 Lymph % (Auto) 15.3 [place] % (Auto) 2.7 Eos % (Auto) 0.0 Baso % (Auto) 0.1 Absolute Neuts (auto) 2.4 Absolute Lymphs (auto) 0.5 L Absolute Monos (auto) 0.1 Absolute Eos (auto) 0.0 Absolute Basos (auto) 0.0 Absolute Nucleated RBC 0.0 Nucleated RBC % 0.0 Patient Temperature ABG pH ABG pH (Temp Correct) ABG pCO2 ABG pCO2 (Temp Corrct ABG pO2 ABG pO2 (Temp Correct ABG HCO3 ABG O2 Saturation ABG Base Excess Respiration Rate O2 Delivery Device Ventilator Type Vent Mode FiO2 Inspiratory Time PEEP Pressure Support Pressure Control EPAP IPAP BiPAP Sodium 139 Potassium 4.7 Chloride 91 L Carbon Dioxide 45 H* Anion Gap 3 BUN 12 Creatinine 0.71 Est GFR ( Amer) 142.1 Est GFR (Non-Af Amer) 117.4 BUN/Creatinine Ratio 16.9 Glucose 142 H Lactic Acid Calcium 9.4 Magnesium 1.6 L Total Bilirubin AST ALT Alkaline Phosphatase Troponin I B-Natriuretic Peptide Total Protein Albumin Globulin Albumin/Globulin Ratio Plan: 49y M w/pmhx of COPD, CHF ; admitted for shortness of breath, wheezing, copd exaccerbation req NIV, acute on chr hypercap resp failure. Started on azithromycin, IV steroids, nebulizers. This morning afebrile, wbc 3.0, mild wheezing was noted but no tachypnea. I ordered for continued q4h neb tx. on reassessment during the day, wheezing has improved. has been off NIV since morning, on NC. feels better. he has not recieved his meds at home from insurance as per him. WE have also started IV diuretics for LE edema, cont IV lasix 40mg daily, reassess daily. Currently improved. cont NIV at night for now for CRUZITO. he has improved and can be stable for transfer to medical floor. I personally supervised Resident on evaluation and management of the patient. Critical Care Time: 30 min ; not including procedures/teaching.
[2019-08-18] MEDS: Nicotine Patch Removal NOTE PATCH OFF SCH (21:57)
[2019-08-19] MEDS: Azithromycin 500 mg/250 ml NS 500 MG/250 ML BAG IVPB SCH ×2 (00:59→22:52)
[2019-08-19] MEDS: Albuterol/Ipratropium NEB.SOL* Albuterol 2.5 MG/Ipratropium 0.5 MG 3 ML INH SCH ×4 (03:16→21:08)
[2019-08-19] MEDS: methylPREDNISolone 125 MG* 2 ML VIAL IV SCH ×3 (03:58→16:59)
[2019-08-19] MEDS: Mometasone/Formoter 200/5 MDI INH SCH ×2 (08:06→21:09)
[2019-08-19] MEDS: Nicotine PATCH 21 MG/24 HR* PATCH TRANSDERM SCH (08:38)
[2019-08-19] MEDS: Furosemide IV* 10 MG/ML VIAL (40 MG) IV SCH (08:38)
[2019-08-19] MEDS: Docusate CAP* 100 MG PO SCH ×2 (08:38→21:34)
[2019-08-19] MEDS: Famotidine TAB* 20 MG PO SCH ×2 (08:38→21:34)
[2019-08-19] MEDS: amLODIPine TAB* 5 MG PO SCH (08:39)
[2019-08-19] MEDS: Magnesium Oxide TAB* 400 MG PO SCH (11:27)
--- NOTE | 2019-08-19 19:28 | PN ---
Subjective Date of Service: 08/19/19 Interval History: Patient seen today, upset he is not going home today "upset he was lied too..." I explained to the patient that we are still waiting for his Bipap. Also he is still requiring IV Lasix and IV steroid. Patient transferred out of the ICU 08/18/19 and being seen for initial encounter today. He understood and was appreciative of the care and willing to stay until he is ready. He continue to be dyspenic and fatigued. no chest pain no event that was brought to my attention by nursing staff Past Medical History: Unchanged from Admission Objective Active Medications: Acetazolamide (Diamox Tab*) 250 mg PO MOWEFR ZAIDA Al Hydrox/Mg Hydrox/Simethicone (Maalox Plus*) 30 ml PO Q6H PRN PRN Reason: INDIGESTION Albuterol (Ventolin Hfa Inhaler*) 2 puff INH Q4H PRN PRN Reason: WHEEZING Albuterol/Ipratropium (Duoneb (Albuterol 2.5 Mg/Ipratropium 0.5 Mg)) 1 neb INH [id number] AWAKE [facility] Last Admin: 08/19/19 13:06 Dose: 1 neb Amlodipine Besylate (Norvasc Tab*) 5 mg PO DAILY [facility] Last Admin: 08/19/19 08:39 Dose: 5 mg Docusate Sodium (Colace Cap*) 100 mg PO BID [facility] Last Admin: 08/19/19 08:38 Dose: 100 mg Enoxaparin Sodium (Lovenox(*)) 40 mg SUBCUT Q24H [facility] Last Admin: 08/18/19 21:56 Dose: 40 mg Famotidine (Pepcid Tab*) 20 mg PO BID [facility] Last Admin: 08/19/19 08:38 Dose: 20 mg Furosemide (Lasix Iv*) 40 mg IV DAILY [facility] Last Admin: 08/19/19 08:38 Dose: 40 mg Azithromycin (Zithromax 500 Mg/250 Ml) 500 mg in 250 mls @ 250 mls/hr IVPB Q24H [facility] Last Admin: 08/19/19 00:59 Dose: 250 mls/hr Magnesium Oxide (Magox 400 Tab*) 400 mg PO DAILY@1200 [facility] Last Admin: 08/19/19 11:27 Dose: 400 mg Methylprednisolone Sodium Succinate (Solu-Medrol 125mg *) 60 mg IV Q8H [facility] Last Admin: 08/19/19 16:59 Dose: 60 mg Mometasone Furoate/Formoterol Fumar (Dulera 200/5 Mdi*) 2 puff INH BID [facility] Last Admin: 08/19/19 08:06 Dose: Not Given Nicotine (Nicotine Patch 21 Mg/24 Hr*) 1 patch TRANSDERM DAILY@0800 [facility] Last Admin: 08/19/19 08:38 Dose: 1 patch Ondansetron HCl (Zofran Inj*) 4 mg IV Q4H PRN PRN Reason: NAUSEA/VOMITING Pharmacy Profile Note (Nicotine Patch Removal Note*) 1 note PATCH OFF 2100 [facility] Last Admin: 08/18/19 21:57 Dose: 1 note Vital Signs - 8 hr 08/19/19 13:07 Pulse Rate 92 Respiratory 20 Rate O2 Sat by Pulse 95 Oximetry Oxygen Devices in Use Now: Nasal Cannula Appearance: awake, alert remain dyspneic in no acute distress. obese Eyes: No Scleral Icterus, - - Lip piercing during exhalation for autopeep. head of bed elevated. Ears/Nose/Mouth/Throat: Mucous Membranes Moist Neck: Trachea Midline Respiratory: - - coarse wheezing both phase inspiratory and expiratory. Cardiovascular: - - edema bilateral Extremities: - - + edema Neurological: Alert and Oriented x 3 Result Diagrams: 08/18/19 04:20 08/18/19 04:20 Microbiology and Other Data: Microbiology 08/18/19 00:30 Nasal Screen MRSA (PCR) - Final Nasal Mrsa Not Detected Assess/Plan/Problems-Billing Assessment: 49 y/o male admitted for acute hypoxic hypercapneic respiratory failure required rescue bipap and ICU stay , transferred to the floor on 08/18/19 and seen today 08/19/19 as initial encounter - Patient Problems (1) Acute respiratory failure with hypoxia Current Visit: No Status: Acute Code(s): J96.01 - ACUTE RESPIRATORY FAILURE WITH HYPOXIA SNOMED Code(s): 70214164 Comment: - Resolved. - s/p ICU stay. Will need home NIV at home (bipap) - currently on 4 liters NC will titrate down to 2 Liter if he tolerates - Weight loss and smoking cessations conuseling (2) COPD exacerbation Current Visit: Yes Status: Acute Code(s): J44.1 - CHRONIC OBSTRUCTIVE PULMONARY DISEASE W (ACUTE) EXACERBATION SNOMED Code(s): 714981444 Comment: - Currently on Azithromycin day # 2 and rocephin day # 2, - Solumedrol 60 mg IV Q8hr consider taper to 40 mg IV q8hrs tomorrow at least 24hrs before changing to prednisone PO. - Continue dulera, and nebulizer (3) Hypercapnic respiratory failure Current Visit: No Status: Acute Code(s): J96.92 - RESPIRATORY FAILURE, UNSPECIFIED WITH HYPERCAPNIA SNOMED Code(s): 585247003 Comment: - Resolved. - s/p ICU stay. Will need home NIV at home (bipap) - currently on 4 liters NC will titrate down to 2 Liter if he tolerates - Given his right sided pressure (on his Echo), I suspect he does have OHS and Cor pulmonale, I am going to start him on diamox 250 mg M.W.F may help his Hco3 - excretion and in return his CO2 retention. routine BMP monitoring as outpatient (4) Acute diastolic heart failure with preserved ejection fraction Current Visit: Yes Status: Acute Code(s): I50.31 - ACUTE DIASTOLIC ( CONGESTIVE) HEART FAILURE SNOMED Code(s): 478038201 Comment: - EF 55-60% - Grade - 1 daistollic heart failure - Lasix 409 mg IV daily change to po in 1-2 days - Added diamox 250 mg M-W-F as I suspect Pulmonary hypertension (RV dialated) but unable to measure his PA pressure (5) DVT prophylaxis Current Visit: No Status: Acute Code(s): ZAD6180 - SNOMED Code(s): 483128605 Comment: SQ lovenox
[2019-08-19] MEDS: acetaZOLAMIDE TAB* 250 MG PO SCH (21:36)
[2019-08-19] MEDS: Enoxaparin(*) 40 MG/0.4 ML SYR SUBCUT SCH (21:36)
[2019-08-19] MEDS: Nicotine Patch Removal NOTE PATCH OFF SCH (21:37)
[2019-08-19] MEDS ORDERED: Saline NASAL SPRAY 0.65%* BTL BOTH NARES PRN (23:40)
[2019-08-20] MEDS: Albuterol/Ipratropium NEB.SOL* Albuterol 2.5 MG/Ipratropium 0.5 MG 3 ML INH SCH ×4 (01:51→19:40)
[2019-08-20] MEDS: methylPREDNISolone 125 MG* 2 ML VIAL IV SCH ×2 (03:23→11:17)
[2019-08-20 05:51] LABS: ABS Lymphocytes 0.6 10^3/ul (1.0-4.8); ABS Monocytes 0.2 10^3/ul (0-0.8); ABS Neutrophils 9.5 10^3/ul (1.5-7.7); Hematocrit 37 % (42-52); Hemoglobin 11.7 g/dL (14.0-18.0); Lymphocyte % 5.7 %; Mean Corpuscular HGB Conc 32 g/dL (31-36); Mean Corpuscular Hemoglobin 27 pg (27-31); Mean Corpuscular Volume 85 fL (80-94); Mean Platelet Volume 8.1 fL (7.4-10.4); Platelet Count 164 10^3/uL (150-450); Red Blood Count 4.36 10^6 /uL (4.18-5.48); Red Cell Distribution Width 16 % (10-15); White Blood Count 10.3 10^3/uL (3.5-10.8)
[2019-08-20 06:07] LABS: BUN/Creatinine Ratio 30.8 (8-20); Calcium 9.2 mg/dL (8.6-10.3); EGFR African American 127.5 (>60); EGFR Non-African American 105.4 (>60); Magnesium 1.9 mg/dL (1.9-2.7); Phosphorus 4.2 mg/dL (2.5-5.0); Potassium 4.3 mmol/L (3.5-5.0)
[2019-08-20] MEDS: Nicotine PATCH 21 MG/24 HR* PATCH TRANSDERM SCH (09:16)
[2019-08-20] MEDS: Docusate CAP* 100 MG PO SCH ×2 (09:16→21:15)
[2019-08-20] MEDS: amLODIPine TAB* 5 MG PO SCH (09:16)
[2019-08-20] MEDS: Famotidine TAB* 20 MG PO SCH ×2 (09:16→21:15)
[2019-08-20] MEDS: Furosemide IV* 10 MG/ML VIAL (40 MG) IV SCH (09:16)
[2019-08-20] MEDS: Magnesium Oxide TAB* 400 MG PO SCH (11:17)
[2019-08-20] MEDS: Mometasone/Formoter 200/5 MDI INH SCH ×2 (13:03→19:40)
--- NOTE | 2019-08-20 14:31 | PN ---
Progress Note - Progress Note Date of Service: 08/20/19 Note: Mr Savage has chronic hypoxic and hypercarbic respiratory failure and COPD and would benefit from having a non-invasive home ventilator.
--- NOTE | 2019-08-20 14:51 | PN ---
Subjective Date of Service: 08/20/19 Interval History: Pt is feeling well. He states his breathing is back to baseline. He has not done much ambulating yet. He is frustrated he is again waiting for approval for the non-invasive ventilator for home. Objective Active Medications: Acetazolamide (Diamox Tab*) 250 mg PO MoWeFr@1700 [facility] Last Admin: 08/19/19 21:36 Dose: 250 mg Al Hydrox/Mg Hydrox/Simethicone (Maalox Plus*) 30 ml PO Q6H PRN PRN Reason: INDIGESTION Albuterol (Ventolin Hfa Inhaler*) 2 puff INH Q4H PRN PRN Reason: WHEEZING Albuterol/Ipratropium (Duoneb (Albuterol 2.5 Mg/Ipratropium 0.5 Mg)) 1 neb INH [id number] AWAKE [facility] Last Admin: 08/20/19 13:02 Dose: 1 neb Amlodipine Besylate (Norvasc Tab*) 5 mg PO DAILY [facility] Last Admin: 08/20/19 09:16 Dose: 5 mg Docusate Sodium (Colace Cap*) 100 mg PO BID [facility] Last Admin: 08/20/19 09:16 Dose: 100 mg Enoxaparin Sodium (Lovenox(*)) 40 mg SUBCUT Q24H [facility] Last Admin: 08/19/19 21:36 Dose: 40 mg Famotidine (Pepcid Tab*) 20 mg PO BID [facility] Last Admin: 08/20/19 09:16 Dose: 20 mg Furosemide (Lasix Iv*) 40 mg IV DAILY [facility] Last Admin: 08/20/19 09:16 Dose: 40 mg Azithromycin (Zithromax 500 Mg/250 Ml) 500 mg in 250 mls @ 250 mls/hr IVPB Q24H [facility] Last Admin: 08/19/19 22:52 Dose: 250 mls/hr Magnesium Oxide (Magox 400 Tab*) 400 mg PO DAILY@1200 [facility] Last Admin: 08/20/19 11:17 Dose: 400 mg Methylprednisolone Sodium Succinate (Solu-Medrol 125mg *) 60 mg IV Q8H [facility] Last Admin: 08/20/19 11:17 Dose: 60 mg Mometasone Furoate/Formoterol Fumar (Dulera 200/5 Mdi*) 2 puff INH BID [facility] Last Admin: 08/20/19 13:03 Dose: 2 puff Nicotine (Nicotine Patch 21 Mg/24 Hr*) 1 patch TRANSDERM DAILY@0800 [facility] Last Admin: 08/20/19 09:16 Dose: 1 patch Ondansetron HCl (Zofran Inj*) 4 mg IV Q4H PRN PRN Reason: NAUSEA/VOMITING Pharmacy Profile Note (Nicotine Patch Removal Note*) 1 note PATCH OFF 2100 [facility] Last Admin: 08/19/19 21:37 Dose: 1 note Sodium Chloride (Sodium Chloride 0.65% Nasal [place]*) 1 spray BOTH NARES Q4H PRN PRN Reason: CONGESTION Last Admin: 08/20/19 01:00 Dose: 1 spray Vital Signs - 8 hr 08/20/19 08/20/19 08/20/19 07:27 07:29 08:00 Temperature 97.8 F Pulse Rate 88 86 Respiratory 20 20 20 Rate Blood Pressure 139/78 (mmHg) O2 Sat by Pulse 91 95 Oximetry 08/20/19 08/20/19 11:36 13:04 Temperature 98.2 F Pulse Rate 96 104 Respiratory 20 20 Rate Blood Pressure 123/73 (mmHg) O2 Sat by Pulse 92 98 Oximetry Oxygen Devices in Use Now: Nasal Cannula Appearance: Middle aged male sitting up in a chair, NAD Eyes: No Scleral Icterus Ears/Nose/Mouth/Throat: Mucous Membranes Moist Respiratory: Symmetrical Chest Expansion and Respiratory Effort, Clear to Auscultation - diminished breath sounds throughout Cardiovascular: NL Sounds; No Murmurs; No JVD, RRR, - - trace-1+ B/L LE edema Abdominal: NL Sounds; No Tenderness; No Distention Extremities: No Clubbing, Cyanosis Skin: No Nodules or Sclerosis Neurological: Alert and Oriented x 3 Result Diagrams: 08/20/19 05:16 08/20/19 05:16 Microbiology and Other Data: Microbiology 08/18/19 00:30 Nasal Screen MRSA (PCR) - Final Nasal Mrsa Not Detected Assess/Plan/Problems-Billing Mr Savage is a 49 y/o male admitted for acute hypoxic and hypercapneic respiratory failure requiring rescue Bipap and ICU stay, transferred to the floor on 08/18/19. - Patient Problems (1) Hypercapnic respiratory failure Current Visit: Yes Status: Acute Code(s): J96.92 - RESPIRATORY FAILURE, UNSPECIFIED WITH HYPERCAPNIA SNOMED Code(s): 503349691 Comment: Acute on chronic. He never received the NIPPV. Awaiting authorization for the NIPPV (hopefully will be approved tomorrow). Continue BiPAP with sleep for now. (2) Acute on chronic diastolic CHF (congestive heart failure) Current Visit: Yes Status: Acute Code(s): I50.33 - ACUTE ON CHRONIC DIASTOLIC (CONGESTIVE) HEART FAILURE SNOMED Code(s): 402663611 Comment: Pt was hospitalized 07/14-07/23/19 for the exact same issue and required lasix on d/c. Unfortunately as he did not have insurance, he did not tack picker the medication and therefore was not taking it. His edema is improved per patient. Change to oral lasix and will continue acetazolamide 250mg MWF. (3) COPD exacerbation Current Visit: Yes Status: Acute Code(s): J44.1 - CHRONIC OBSTRUCTIVE PULMONARY DISEASE W (ACUTE) EXACERBATION SNOMED Code(s): 805826405 Comment: No signs of exacerbation any longer. Continue azithromycin (change to oral) no need for ceftriaxone. Will also change to prednisone from solumedrol. He is feeling ready to go home. (4) Morbid obesity Current Visit: Yes Status: Acute Code(s): E66.01 - MORBID (SEVERE) OBESITY DUE TO EXCESS CALORIES SNOMED Code(s): 195150233 Comment: BMI is down to 41.8. (5) Tobacco abuse Current Visit: Yes Status: Acute Code(s): Z72.0 - TOBACCO USE SNOMED Code( s): 392162394 Comment: Conitnue nicotine patch. Encourage smoking cessation. (6) DVT prophylaxis Current Visit: Yes Status: Acute Code(s): GZX9559 - SNOMED Code(s): 473014206 Comment: SQ lovenox (7) Full code status Current Visit: Yes Status: Acute Code(s): Z78.9 - OTHER SPECIFIED HEALTH STATUS SNOMED Code(s): 494438584
[2019-08-20] MEDS: Enoxaparin(*) 40 MG/0.4 ML SYR SUBCUT SCH (21:15)
[2019-08-20] MEDS: Azithromycin TAB* 250 MG PO SCH (21:15)
[2019-08-20] MEDS: Nicotine Patch Removal NOTE PATCH OFF SCH (21:19)
[2019-08-21] MEDS: Albuterol/Ipratropium NEB.SOL* Albuterol 2.5 MG/Ipratropium 0.5 MG 3 ML INH SCH ×4 (02:10→19:40)
[2019-08-21] MEDS: Mometasone/Formoter 200/5 MDI INH SCH ×2 (07:36→19:40)
[2019-08-21] MEDS: Nicotine PATCH 21 MG/24 HR* PATCH TRANSDERM SCH (08:55)
[2019-08-21] MEDS: amLODIPine TAB* 5 MG PO SCH (08:55)
[2019-08-21] MEDS: Famotidine TAB* 20 MG PO SCH ×2 (08:56→20:21)
[2019-08-21] MEDS: Azithromycin TAB* 250 MG PO SCH (08:56)
[2019-08-21] MEDS: Furosemide TAB* 40 MG PO SCH (08:56)
[2019-08-21] MEDS: Docusate CAP* 100 MG PO SCH ×2 (08:57→20:21)
[2019-08-21] MEDS: Magnesium Oxide TAB* 400 MG PO SCH (14:51)
--- NOTE | 2019-08-21 16:13 | PN ---
Subjective Date of Service: 08/21/19 Interval History: Patient seen today doing well. Anxious and getting frustrated that he is not able to go home yet. I was notified that his Bipap could be delivered today. I will have him try his Bipap tonight and respiratory. Still coughing and wheezing. no events overnight. Past Medical History: Unchanged from Admission Objective Active Medications: Acetazolamide (Diamox Tab*) 250 mg PO MoWeFr@1700 [facility] Last Admin: 08/19/19 21:36 Dose: 250 mg Al Hydrox/Mg Hydrox/Simethicone (Maalox Plus*) 30 ml PO Q6H PRN PRN Reason: INDIGESTION Albuterol (Ventolin Hfa Inhaler*) 2 puff INH Q4H PRN PRN Reason: WHEEZING Albuterol/Ipratropium (Duoneb (Albuterol 2.5 Mg/Ipratropium 0.5 Mg)) 1 neb INH [id number] AWAKE [facility] Last Admin: 08/21/19 13:54 Dose: 1 neb Amlodipine Besylate (Norvasc Tab*) 5 mg PO DAILY [facility] Last Admin: 08/21/19 08:55 Dose: 5 mg Azithromycin (Zithromax Tab*) 250 mg PO DAILY [facility] Stop: 08/22/19 09:01 Last Admin: 08/21/19 08:56 Dose: 250 mg Docusate Sodium (Colace Cap*) 100 mg PO BID [facility] Last Admin: 08/21/19 08:57 Dose: 100 mg Enoxaparin Sodium (Lovenox(*)) 40 mg SUBCUT Q24H [facility] Last Admin: 08/20/19 21:15 Dose: 40 mg Famotidine (Pepcid Tab*) 20 mg PO BID [facility] Last Admin: 08/21/19 08:56 Dose: 20 mg Furosemide (Lasix Tab*) 40 mg PO DAILY [facility] Last Admin: 08/21/19 08:56 Dose: 40 mg Magnesium Oxide (Magox 400 Tab*) 400 mg PO DAILY@1200 [facility] Last Admin: 08/21/19 14:51 Dose: 400 mg Mometasone Furoate/Formoterol Fumar (Dulera 200/5 Mdi*) 2 puff INH BID [facility] Last Admin: 08/21/19 07:36 Dose: 2 puff Nicotine (Nicotine Patch 21 Mg/24 Hr*) 1 patch TRANSDERM DAILY@0800 [facility] Last Admin: 08/21/19 08:55 Dose: 1 patch Ondansetron HCl (Zofran Inj*) 4 mg IV Q4H PRN PRN Reason: NAUSEA/VOMITING Pharmacy Profile Note (Nicotine Patch Removal Note*) 1 note PATCH OFF 2100 [facility] Last Admin: 08/20/19 21:19 Dose: 1 note Prednisone (Deltasone 20 Mg Tab) 40 mg PO DAILY [facility] Last Admin: 08/21/19 08:56 Dose: 40 mg Sodium Chloride (Sodium Chloride 0.65% Nasal [place]*) 1 spray BOTH NARES Q4H PRN PRN Reason: CONGESTION Last Admin: 08/20/19 01:00 Dose: 1 spray Vital Signs - 8 hr 08/21/19 08/21/19 12:12 13:54 Temperature 97.6 F Pulse Rate 89 74 Respiratory 16 18 Rate Blood Pressure 121/68 (mmHg) O2 Sat by Pulse 96 98 Oximetry Oxygen Devices in Use Now: Nasal Cannula Appearance: awake alert no distress Eyes: No Scleral Icterus, - - EOMI Ears/Nose/Mouth/Throat: NL Teeth, Lips, Gums, Mucous Membranes Moist Neck: NL Appearance and Movements; NL JVP, Trachea Midline Respiratory: - - Coarse wheezing, transmitted upper airway breathsound Abdominal: NL Sounds; No Tenderness; No Distention Extremities: - - +2 edema Neurological: Alert and Oriented x 3 Result Diagrams: 08/20/19 05:16 08/20/19 05:16 Microbiology and Other Data: Microbiology 08/18/19 00:30 Nasal Screen MRSA (PCR) - Final Nasal Mrsa Not Detected Assess/Plan/Problems-Billing Mr Savage is a 49 y/o male admitted for acute hypoxic and hypercapneic respiratory failure requiring rescue Bipap and ICU stay, transferred to the floor on 08/18/19. - Patient Problems (1) Acute respiratory failure with hypoxia Current Visit: No Status: Acute Code(s): J96.01 - ACUTE RESPIRATORY FAILURE WITH HYPOXIA SNOMED Code(s): 25788458 Comment: - Resolved. - s/p ICU stay. Will need home NIV at home (bipap) - currently on 3 liters NC will titrate down to 2 Liter if he tolerates - Weight loss and smoking cessations conuseling (2) COPD exacerbation Current Visit: Yes Status: Acute Code(s): J44.1 - CHRONIC OBSTRUCTIVE PULMONARY DISEASE W (ACUTE) EXACERBATION SNOMED Code(s): 965594003 Comment: - Continue azithromycin (change to oral) - Contionue prednisone (3) Hypercapnic respiratory failure Current Visit: Yes Status: Acute Code(s): J96.92 - RESPIRATORY FAILURE, UNSPECIFIED WITH HYPERCAPNIA SNOMED Code(s): 757834241 Comment: Acute on chronic. He never received the NIPPV. - Accepted for NIPPV to be delivered to his room today - Will have him try it in his room tonight (4) Acute diastolic heart failure with preserved ejection fraction Current Visit: Yes Status: Acute Code(s): I50.31 - ACUTE DIASTOLIC ( CONGESTIVE) HEART FAILURE SNOMED Code(s): 130796291 Comment: - EF 55-60% - Grade - 1 daistollic heart failure - Lasix 40 mg po daily - continue his newly added diamox 250 mg as I suspect Pulmonary hypertension (RV dialated) but unable to measure his PA pressure (5) DVT prophylaxis Current Visit: Yes Status: Acute Code(s): [id number] - SNOMED Code(s): 568240077 Comment: SQ lovenox
[2019-08-21] MEDS: acetaZOLAMIDE TAB* 250 MG PO SCH (17:05)
[2019-08-21] MEDS: Nicotine Patch Removal NOTE PATCH OFF SCH (22:54)
[2019-08-21] MEDS: Enoxaparin(*) 40 MG/0.4 ML SYR SUBCUT SCH (22:54)
[2019-08-22] MEDS: Albuterol/Ipratropium NEB.SOL* Albuterol 2.5 MG/Ipratropium 0.5 MG 3 ML INH SCH (02:42)
[2019-08-22] MEDS ORDERED: Albuterol/Ipratropium NEB.SOL* Albuterol 2.5 MG/Ipratropium 0.5 MG 3 ML INH PRN (06:42)
[2019-08-22] MEDS: Docusate CAP* 100 MG PO SCH (09:53)
[2019-08-22] MEDS: amLODIPine TAB* 5 MG PO SCH (09:53)
[2019-08-22] MEDS: Azithromycin TAB* 250 MG PO SCH (09:53)
[2019-08-22] MEDS: Famotidine TAB* 20 MG PO SCH (09:53)
[2019-08-22] MEDS: Nicotine PATCH 21 MG/24 HR* PATCH TRANSDERM SCH (09:54)
[2019-08-22] MEDS: Furosemide TAB* 40 MG PO SCH (09:54)
[2019-08-22] MEDS: Mometasone/Formoter 200/5 MDI INH SCH (10:42)
[2019-08-22 12:32] VITALS: BP 121/70
[2019-08-22] MEDS: Magnesium Oxide TAB* 400 MG PO SCH (13:13)
--- NOTE | 2019-08-22 21:21 | DS ---
DISCHARGE SUMMARY: DATE OF ADMISSION: 08/17/19 DATE OF DISCHARGE: 08/22/19 FINAL DISCHARGE DIAGNOSES: 1. Obesity hypoventilation syndrome. 2. Acute respiratory failure with hypoxia. 3. Hypercapnic respiratory failure. 4. Chronic obstructive pulmonary disease exacerbation. 5. Acute diastolic heart failure with preserved ejection fraction. HOSPITAL COURSE: The patient presented to [facility] on 08/17/19 for shortness of breath, worse in the past 2 weeks along with bilateral leg swelling with known history of COPD, on 3 L nasal cannula. In the emergency room, his pulse oximetry was 60%. He was placed on oxygen supplementatio n and was admitted to the medical service for further management. The patient was placed on nebulizer , IV steroid, IV antibiotic including azithromycin. Given his previous hospitalization and recurrent failure of his respiratory status at home, we were able to call for home equipment and able to secur e a BiPAP, it was delivered for him today in the room. During the hospital course, his medications w ere titrated and I did add Diamox 250 mg 3 times a week on Saturday, Saturday, Saturday to help with his metabolic alkalosis due to his CO2 retention. Blood pressures were adjusted by adding amlodipine an d his Lasix was transitioned to oral 40 mg daily. His third was transitioned to oral prednisone as w ell. He continued to improve on a daily basis and today we were able to discharge him home with a Bi PAP with the goal is to have 3 L on nasal cannula at rest, up to 5 L with ambulation. BiPAP througho ut the day p.r.n. and all night. MEDICATIONS: It was sent twice to different pharmacy due to the patient's preference. 1. Diamox 250 mg Saturday, Saturday, Saturday. 2. Prednisone 40 mg daily for 2 days and 30 mg x2 days, 20 mg x2 days and 10 mg x2 days. 3. Colace 100 mg b.i.d. 4. Pepcid 20 mg b.i.d. 5. Lasix 40 mg daily. 6. Prednisone 20 mg daily. 7. Amlodipine 5 mg daily. 8. Magnesium oxide every day. 9. Dulera 200/5 two puffs twice a day. 10. Nicotine patch 21 mg daily. 11. Potassium 20 mEq daily. 12. Continue Chantix 1 mg daily. 13. Albuterol inhaler 2 puffs every 4 hours as needed. DISCHARGE RECOMMENDATIONS: 1. Activity as tolerated. 2. Use a nebulizer machine every night and while you sleep during the day. 3. Follow up with your primary care, appointment made on 08/25/19. 4. Use nasal cannula 3 L during the day, BiPAP at night. 5. Take home medications as prescribed. DISCHARGE CONDITION: Stable. DISCHARGE DISPOSITION: Home. [id number]/[facility] #: [id number]
== END 2019-08-22 16:40 | disposition home or self-care (01) | DRG 140 ==
LOC: ED 17:48 → MED 21:11 → ICU 23:28 → MEDTELE 08-18 15:29
PROVIDERS: ADMIT Family Medicine; ATTEND Internal Medicine
PROC: 5A09357 Assistance with Respiratory Ventilation, Less than 24 Consecutive Hours, Continuous Positive Airway Pressure (ICD-10-PCS; principal; 2019-08-17)
DX: J44.1 Chronic obstructive pulmonary disease with (acute) exacerbation (principal); I50.31 Acute diastolic (congestive) heart failure; J96.21 Acute and chronic respiratory failure with hypoxia; J96.22 Acute and chronic respiratory failure with hypercapnia; E66.2 Morbid (severe) obesity with alveolar hypoventilation; E87.3 Alkalosis; Z68.41 Body mass index [BMI] 40.0-44.9, adult; I11.0 Hypertensive heart disease with heart failure; F17.210 Nicotine dependence, cigarettes, uncomplicated; Z99.81 Dependence on supplemental oxygen; Z79.899 Other long term (current) drug therapy; Z79.52 Long term (current) use of systemic steroids; Z88.8 Allergy status to other drugs, medicaments and biological substances
CPT/HCPCS: 36415; 36600; 71045; 80048; 80053; 82803; 83605; 83735; 83880; 84100; 84484; 85025; 87641; 93005; 94640; 94660; 96374; 99285; A9270-GY; J0456; J1650; J1940; J2930; J3475; J7512

== ENCOUNTER 2020-07-17 09:11 | Inpatient (IN) ==
[2020-07-17] MEDS ORDERED: Albuterol/Ipratropium NEB.SOL (2.5/0.5 MG) 3 ML NEB.SOLN INH ONE (09:50)
[2020-07-17 10:24] LABS: ABS Lymphocytes 0.3 10^3/ul (1.0-4.8); ABS Monocytes 0.1 10^3/ul (0-0.8); Hematocrit 43 % (42-52); Hemoglobin 13.5 g/dL (14.0-18.0); Mean Corpuscular HGB Conc 32 g/dL (31-36); Mean Corpuscular Hemoglobin 28 pg (27-31); Mean Corpuscular Volume 87 fL (80-94); Mean Platelet Volume 7.8 fL (7.4-10.4); Nucleated Red Blood Cells % 0.1; Platelet Count 171 10^3/uL (150-450); Red Blood Count 4.91 10^6 /uL (4.18-5.48); Red Cell Distribution Width 16 % (10-15); White Blood Count 8.3 10^3/uL (3.5-10.8)
[2020-07-17 10:33] LABS: INR 1.15 (0.82-1.09)
[2020-07-17] MEDS ORDERED: cefTRIAXone 1 gm/50 mL NS BAG 1 GM/50 ML BAG IV ONE (10:43)
[2020-07-17] MEDS ORDERED: Azithromycin 500 mg/250 ml NS 500 MG/250 ML BAG IVPB ONE (10:43)
[2020-07-17 10:45] LABS: ALT 15 U/L (7-52); AST 15 U/L (13-39); Albumin 4.3 g/dL (3.2-5.2); Albumin/Globulin Ratio 1.2 (1-3); Alkaline Phosphatase 93 U/L (34-104); Anion Gap 2 mmol/L (2-11); BUN/Creatinine Ratio 14.5 (8-20); Blood Urea Nitrogen 10 mg/dL (6-24); C Reactive Protein 28.13 mg/L (<8.01); CO2 Carbon Dioxide 38 mmol/L (22-32); Calcium 9.2 mg/dL (8.6-10.3); Chloride 93 mmol/L (101-111); EGFR African American 146.3 (>60); EGFR Non-African American 120.9 (>60); Globulin 3.6 g/dL (2-4); Glucose 126 mg/dL (70-100); Potassium 5.2 mmol/L (3.5-5.0); Sodium 133 mmol/L (135-145); Total Protein 7.9 g/dL (6.4-8.9)
[2020-07-17 10:47] LABS: Troponin I 0.03 ng/mL (<0.03)
[2020-07-17] MEDS ORDERED: Furosemide 40 mg/4 ml IV VIAL IV SLOW PU ONE (12:40)
[2020-07-17] MEDS: methylPREDNISolone SOD 40 mg/ml 1 ml VIAL IV SCH ×2 (14:35→21:05)
[2020-07-17] MEDS: Enoxaparin 40 MG/0.4 ML SYR SUBCUT SCH (15:30)
[2020-07-17 20:17] LABS: BUN/Creatinine Ratio 20.3 (8-20); Calcium 8.9 mg/dL (8.6-10.3); EGFR African American 159.5 (>60); EGFR Non-African American 131.8 (>60); Potassium 4.5 mmol/L (3.5-5.0)
[2020-07-18 04:23] LABS: Hematocrit 41 % (42-52); Hemoglobin 12.4 g/dL (14.0-18.0); Mean Corpuscular HGB Conc 31 g/dL (31-36); Mean Corpuscular Hemoglobin 27 pg (27-31); Mean Corpuscular Volume 87 fL (80-94); Platelet Count 174 10^3/uL (150-450); Red Blood Count 4.66 10^6 /uL (4.18-5.48); Red Cell Distribution Width 16 % (10-15); White Blood Count 10.1 10^3/uL (3.5-10.8)
[2020-07-18 04:24] LABS: INR 1.16 (0.82-1.09)
[2020-07-18 04:35] LABS: BUN/Creatinine Ratio 22.4 (8-20); EGFR African American 130.8 (>60); EGFR Non-African American 108.1 (>60); Magnesium 1.9 mg/dL (1.9-2.7); Phosphorus 3.5 mg/dL (2.5-5.0); Potassium 4.6 mmol/L (3.5-5.0)
[2020-07-18] MEDS: methylPREDNISolone SOD 40 mg/ml 1 ml VIAL IV SCH ×2 (07:22→14:02)
[2020-07-18] MEDS: cefTRIAXone 1 gm/50 mL NS BAG 1 GM/50 ML BAG IVPB SCH (08:24)
[2020-07-18] MEDS: Azithromycin 500 mg/250 ml NS 500 MG/250 ML BAG IVPB SCH (10:35)
[2020-07-18] MEDS: Enoxaparin 40 MG/0.4 ML SYR SUBCUT SCH (13:56)
[2020-07-18] MEDS ORDERED: Albuterol/Ipratropium NEB.SOL (2.5/0.5 MG) 3 ML NEB.SOLN INH PRN (18:05)
[2020-07-18] MEDS ORDERED: Albuterol HFA INHALER 8 gm MDI INH PRN (18:11)
[2020-07-18] MEDS: Mometasone/Formoter 200/5 MDI INH SCH (19:43)
[2020-07-19] MEDS ORDERED: methylPREDNISolone SOD 40 mg/ml 1 ml VIAL IV SCH (02:00)
[2020-07-19 05:46] LABS: BUN/Creatinine Ratio 31.7 (8-20); Calcium 9.4 mg/dL (8.6-10.3); EGFR African American 162.5 (>60); EGFR Non-African American 134.3 (>60); Phosphorus 3.1 mg/dL (2.5-5.0); Potassium 4.6 mmol/L (3.5-5.0)
[2020-07-19] MEDS: Mometasone/Formoter 200/5 MDI INH SCH ×3 (07:43→22:49)
[2020-07-19] MEDS: cefTRIAXone 1 gm/50 mL NS BAG 1 GM/50 ML BAG IVPB SCH (08:42)
[2020-07-19] MEDS ORDERED: Potassium Chlor 20 meq TAB.ER PO SCH (09:00)
[2020-07-19] MEDS ORDERED: Furosemide 20 mg/2 ml IV VIAL IV SLOW PU ONE (09:27)
[2020-07-19] MEDS: Azithromycin 500 mg/250 ml NS 500 MG/250 ML BAG IVPB SCH (10:14)
[2020-07-19] MEDS: Enoxaparin 40 MG/0.4 ML SYR SUBCUT SCH (14:03)
[2020-07-20] MEDS: Mometasone/Formoter 200/5 MDI INH SCH (08:18)
[2020-07-20 08:55] LABS: Calcium 8.9 mg/dL (8.6-10.3); Potassium 3.9 mmol/L (3.5-5.0)
[2020-07-20 09:01] LABS: EGFR African American 132.9 (>60); EGFR Non-African American 109.8 (>60)
[2020-07-20] MEDS: cefTRIAXone 1 gm/50 mL NS BAG 1 GM/50 ML BAG IVPB SCH (09:02)
[2020-07-20] MEDS: Azithromycin 500 mg/250 ml NS 500 MG/250 ML BAG IVPB SCH (10:26)
[2020-07-20 12:05] VITALS: BP 123/66
[2020-07-20] MEDS: Enoxaparin 40 MG/0.4 ML SYR SUBCUT SCH (13:17)
== END 2020-07-20 14:10 | disposition home or self-care (01) | DRG 140 ==
LOC: ED 09:11 → ICU 13:09 → MEDTELE 07-19 11:58
PROVIDERS: ADMIT Internal Medicine; ATTEND Internal Medicine